=== PATIENT | male | born 1950 | race Two or more races ===

== ENCOUNTER 2019-12-05 11:57 | Emergency (ER) | payer MEDICARE, OTHER, SELFPAY ==
[2019-12-05 12:05] VITALS: BP 193/80; PULSE 99; RESP 16; TEMP 36.7; BMI 27.1
--- NOTE | 2019-12-05 12:30 | CT_ITS ---
EXAMINATION: CT ABDOMEN AND PELVIS WITHOUT CONTRAST CLINICAL INFORMATION: 69-year-old male with urinary retention COMPARISON: CT of the abdomen and pelvis 02/05/2019 TECHNIQUE: Multidetector volumetric imaging was performed from the superior aspect of the liver through the pubic symphysis. Sagittal and coronal reformatted images were obtained on the technologist's workstation. This CT examination was performed using dose optimization techniques as appropriate, variously including the following: *Automated exposure control *Adjustment of mA and/or kV according to patient size (this includes techniques or standardized protocols for targeted exams where dose is matched to indication/reason for exam; i.e. extremities or head) *Use of iterative reconstruction technique DLP: 517 mGy-cm FINDINGS: LUNG BASES: The visualized lung bases are unremarkable. LIVER, GALLBLADDER, AND BILIARY TREE: The liver is normal in size, shape, and attenuation. No focal hepatic lesion or biliary ductal dilatation is present. The gallbladder is unremarkable with no evidence of radiopaque gallstones, gallbladder wall thickening, or obvious pericholecystic inflammatory changes. PANCREAS: Unremarkable. SPLEEN: Unremarkable. ADRENAL GLANDS: Unremarkable. KIDNEYS AND URETERS: The kidneys are normal in size, shape, and attenuation. No hydronephrosis, hydroureter, or calculi seen. No perinephric stranding. BLADDER: Again demonstrated is a Bourgeois catheter within an empty bladder. GASTROINTESTINAL TRACT: No bowel wall thickening or dilatation. Again demonstrated is diffuse colonic diverticulosis without evidence of diverticulitis. Normal appendix. ABDOMINAL WALL: Again demonstrated is a small fat-containing umbilical hernia LYMPH NODES: Normal. VASCULAR: There are moderate atheromatous calcifications of the abdominal aorta and iliac arteries. The aorta is normal in caliber. Normal noncontrast appearance of the inferior vena cava. PELVIC VISCERA: Again demonstrated is a markedly enlarged prostate gland with central calcification. No pelvic lymph nodes are visualized. No free fluid. OSSEOUS STRUCTURES: No suspicious osseous lesions. No acute fracture or dislocation. Grade 1 anterolisthesis of L5 on S1. Mild degenerative changes at L5-S1 and L4-L5. IMPRESSION: Again demonstrated is significant prostate gland enlargement. A Bourgeois catheter is in place within an empty bladder. Bilateral kidneys demonstrate a normal noncontrast appearance. No hydronephrosis or hydroureter. No renal calculi. Diffuse colonic diverticulosis without evidence for diverticulitis.
--- NOTE | 2019-12-05 12:31 | ED_ITS ---
HPI - Male Genitourinary General Chief complaint: Urogenital-Male Stated complaint: diff urinating Time Seen by Provider: 12/05/19 12:22 Source: patient Mode of arrival: ambulatory Limitations: no limitations History of Present Illness HPI Narrative: 69yoM c PMHx of enlarged prostate, HTN and DM being followed by Dr. Paniagua presenting to the ED with complaints of urinary retention since this morning. Reports he last followed up with urology [address] Paniagua wanted to do a cystoscopy although patient decided to wait a little longer. Related Data Previous Rx's Medication Instructions Recorded valsartan 80 mg tablet 80 mg PO DAILY #90 tab 12/04/19 Allergies Allergy/AdvReac Type Severity Reaction Status Date / Time metformin [METFORMIN] AdvReac Mild STOMACH Unverified 11/05/19 14:51 UPSET MetFORMIN HCl ER AdvReac Unknown abdominal Uncoded 09/14/19 00:00 pain, diarrhea Review of Systems Review of Systems: Constitutional : No Weight loss, No Fever, No Chills, No Night Sweats, No Fatigue, No Malaise ENT/Mouth: No ear pain, No sore throat, No Difficulty swallowing Cardiovascular : No Chest Pain, No SOB, No Dyspnea on Exertion, No Orthopnea, No Edema, No Palpitations Respiratory : No Cough, No Sputum, No Wheezing, No Dyspnea Gastrointestinal : No Nausea, No Vomiting, No Diarrhea, No abdominal Pain, No Hematochezia, No Melena Genitourinary : No irregular bleeding, No Dysuria, No Urinary Frequency, No Hematuria, No Urinary Incontinence, No Urgency, No Flank Pain Musculoskeletal : No joint pain, No Myalgias, No Joint Swelling Skin : No Skin Lesions, No rash Neuro : No Weakness, No Numbness, No Paresthesias, No Loss of Consciousness, No Dizziness, No Headache Psych : No Social Issues, Heme/Lymph: No Bruising, No Bleeding,No Lymphadenopathy Endocrine : No Polyuria, No Polydipsia, No Temperature Intolerance Yes all other systems are reviewed and are negative COUNT INCLUDES THE [facility] Past Medical History Attestation statement: The following information was validated with the patient. Medical History Diabetes mellitus, type 2 Hypertension Social History Social History Alcohol intake: never Smoked in Last 30 Days: No Use of substances other than those prescribed or required for medical reasons: No Advance Directives: No Advance Directives Information Provided: Yes Physical Exam Vital Signs: Vital Signs: Vital Signs Temp Pulse Resp BP 12/05/19 12:05 98.1 F 99 16 193/80 H Body Mass Index 27.1 Vital signs have been reviewed as normal and appeared to be correct. Blood pressure normal. Heart rate normal. Respiration rate normal. Temperature normal. Oxygen saturation normal. Appearance: Alert. Oriented X3. No acute distress. Head: Normal external exam. Normocephalic. Atraumatic. No Salazar signs noted. No raccoon eyes noted Eyes: PERRLA. EOMI. Conjunctiva and sclera normal. Eyelids normal. ENT: EAC normal. TM's Normal. Pharynx normal. Uvula midline. Moist mucous membranes. No trismus noted. No drooling noted. No muffled voice noted. Neck: Normal inspection. Neck supple. FROM. No adenopathy. Thyroid Normal. No meningeal signs. No neck mass noted. CVS: Normal heart rate and rhythm. Heart sound normal. No murmurs noted. Pulses normal throughout. Respiratory: No respiratory distress. Painless inspiration. Breath sounds normal. No wheezes/rales/rhonchi noted. Chest nontender. No accessory muscle usage noted or decreased air movement noted. Abdomen: Soft and nontender. Bowel sounds normal in all 4 quadrants. No distention noted. No organomegaly noted. No visible injury noted. : [employer] Head present Sadia PCT in room. Normal external exam of penis, meatus, scrotum and testes. No edema or erythema noted. No penile discharge noted. No mass noted. No tenderness to palpation of penis scrotum or testes. No inguinal lymphadenopathy noted. No rashes/ lesion/ vesicle/ pustules /ulcerations / nodules or papules noted. Back: No CVA tenderness. Full range of motion noted. Skin: Skin warm and dry. Normal skin color. Normal skin turgor. No rashes/lesions/lacerations noted. Extremities: No lower extremity edema. Extremities exhibit normal range of motion. Extremities nontender. Neuro: Oriented X 3. No motor deficit. No sensory deficit. Reflexes normal. Course Course Course Narrative: 69yoM c PMHx of enlarged prostate, HTN and DM being followed by Dr. Paniagua presenting to the ED with complaints of urinary retention since this morning. Reports he last followed up with urology [address] Paniagua wanted to do a cystoscopy although patient decided to wait a little longer. - Plan: Bladder scan and place a up Catheter in. Obtain Labs, CT scan of abd/pelvis without contrast to Evaluate for mass or any other acute processes and UA and re-evaluate. Reevaluation(s) Reevaluation #2: All labs within normal limits. UA within normal limits no evidence of UTI. Awaiting CT scan of abdomen and pelvis. If negative will DC home with Up catheter in place and instructions to follow-up with urology Dr. Paniagua. Patient understands agrees with this plan. MDM - Male Genitourinary Differential Diagnosis Differential diagnosis: Likely urinary tract infection, prostatitis and acute retention of urine Medical Records Attestation: I reviewed the patient's medical records. Lab Data Attestation: I reviewed the patient's lab results. Result diagrams: 12/05/19 12:43 12/05/19 12:44 Labs: Lab Results 12/05/19 12/05/19 12/05/19 Range/Units 12:39 12:43 12:43 WBC 6.2 (4.8-10.8) X10*3/uL RBC 4.79 (4.60-5.80) X10*6/uL Hgb 13.1 L (14.0-18.0) g/dl Hct 41.1 L (42-52) % MCV 85.8 (80-98) fL MCH 27.3 (27.0-33.0) pg MCHC 31.9 (31.0-36.0) g/dl RDW 13.3 (11.0-16.0) % Plt Count 179 (160-400) X10*3/uL MPV 10.5 (9.4-12.4) fL Immature Gran % (Auto) 0.2 (0.0-0.4) % Neut % (Auto) 69.5 (45-73) % Lymph % (Auto) 22.6 (20-40) % [place] % (Auto) 6.4 (2-11) % Eos % (Auto) 0.5 (0-4) % Baso % (Auto) 0.8 (0-2) % Lymph # (Auto) 1.4 (1.2-4.9) X10*3/uL [place] # (Auto) 0.4 (0.1-1.2) X10*3/uL Eos # (Auto) 0.0 (0.0-0.4) X10*3/uL Baso # (Auto) 0.1 (0.0-0.2) X10*3/uL Abs Immat Gran (auto) 0.01 (0.00-0.03) X10*3/uL Absolute Neuts (auto) 4.3 (2.0-8.3) X10*3/uL Absolute Nucleated RBC 0.000 (0.0-0.012) X10*3/uL Nucleated RBC % (auto) 0.0 (0.0-0.2) /100WBC PT (10.8-13.0) SEC INR (0.9-1.1) Sodium (135-145) mmol/L Potassium (3.3-5.1) mmol/l Chloride (96-108) mmol/L Carbon Dioxide (22-29) mmol/L Anion Gap (12-20) BUN (9-16) mg/dL Creatinine (0.5-1.4) mg/dL Estim Creat Clear Calc Estimated GFR Random Glucose (60-115) mg/dL Calcium (8.4-10.2) mg/dL Magnesium 2.4 (1.6-2.6) mg/dL Total Bilirubin (0.0-1.0) mg/dL Direct Bilirubin (0.0-0.5) mg/dL AST (5-37) U/L ALT (0-40) U/L Alkaline Phosphatase (39-117) U/L Total Protein (6.5-8.0) g/dL Albumin (3.5-5.0) g/dL Urine Color YELLOW Urine Appearance CLEAR Urine pH 6.5 (5.0-8.0) Ur Specific [place] 1.010 (1.005-1.025) Urine Protein NEG (NEG-TRACE) MG/DL Urine Glucose (UA) NEG (NEG) MG/DL Urine Ketones NEG (NEG) MG/DL Urine Blood NEG (NEG) Urine Nitrite NEG (NEG) Ur Leukocyte Esterase NEG (NEG) 12/05/19 12/05/19 Range/Units 12:43 12:44 WBC (4.8-10.8) X10*3/uL RBC (4.60-5.80) X10*6/uL Hgb (14.0-18.0) g/dl Hct (42-52) % MCV (80-98) fL MCH (27.0-33.0) pg MCHC (31.0-36.0) g/dl RDW (11.0-16.0) % Plt Count (160-400) X10*3/uL MPV (9.4-12.4) fL Immature Gran % (Auto) (0.0-0.4) % Neut % (Auto) (45-73) % Lymph % (Auto) (20-40) % [place] % (Auto) (2-11) % Eos % (Auto) (0-4) % Baso % (Auto) (0-2) % Lymph # (Auto) (1.2-4.9) X10*3/uL [place] # (Auto) (0.1-1.2) X10*3/uL Eos # (Auto) (0.0-0.4) X10*3/uL Baso # (Auto) (0.0-0.2) X10*3/uL Abs Immat Gran (auto) (0.00-0.03) X10*3/uL Absolute Neuts (auto) (2.0-8.3) X10*3/uL Absolute Nucleated RBC (0.0-0.012) X10*3/uL Nucleated RBC % (auto) (0.0-0.2) /100WBC PT 10.9 (10.8-13.0) SEC INR 0.9 (0.9-1.1) Sodium 141 (135-145) mmol/L Potassium 4.6 (3.3-5.1) mmol/l Chloride 106 (96-108) mmol/L Carbon Dioxide 27 (22-29) mmol/L Anion Gap 13 (12-20) BUN 17 H (9-16) mg/dL Creatinine 1.14 (0.5-1.4) mg/dL Estim Creat Clear Calc 59.1 Estimated GFR > 60 Random Glucose 119 H (60-115) mg/dL Calcium 9.3 (8.4-10.2) mg/dL Magnesium (1.6-2.6) mg/dL Total Bilirubin 0.9 (0.0-1.0) mg/dL Direct Bilirubin 0.3 (0.0-0.5) mg/dL AST 13 (5-37) U/L ALT 12 (0-40) U/L Alkaline Phosphatase 62 (39-117) U/L Total Protein 7.0 (6.5-8.0) g/dL Albumin 4.3 (3.5-5.0) g/dL Urine Color Urine Appearance Urine pH (5.0-8.0) Ur Specific [place] (1.005-1.025) Urine Protein (NEG-TRACE) MG/DL Urine Glucose (UA) (NEG) MG/DL Urine Ketones (NEG) MG/DL Urine Blood (NEG) Urine Nitrite (NEG) Ur Leukocyte Esterase (NEG) Imaging Data ct scan abd/pelvis: Attestation: I personally reviewed and interpreted this imaging study as follows: Radiologist's impression: IMPRESSION: Again demonstrated is significant prostate gland enlargement. A Up catheter is in place within an empty bladder. Bilateral kidneys demonstrate a normal noncontrast appearance. No hydronephrosis or hydroureter. No renal calculi. Diffuse colonic diverticulosis without evidence for diverticulitis. Discharge Plan Discharge Clinical Impression: Enlarged prostate, Acute urinary retention, Up catheter in place Patient Disposition: Home, Self-Care Instructions: Up Catheter Placement and Care (ED) Prescriptions: No Action valsartan 80 mg tablet 80 mg PO DAILY Qty: 90 RF: 5 Referrals: Carlitos Paniagua III, MD [Physician] - 2 days Print Language: Romanian
[2019-12-05 12:51] LABS: Basophils Absolute Auto 0.1 X10*3/uL (0.0-0.2); Basophils Percent Auto 0.8 % (0-2); Eosinophils Percent Auto 0.5 % (0-4); Hematocrit 41.1 % (42-52); Hemoglobin 13.1 g/dl (14.0-18.0); Imm Gran Abs Auto 0.01 X10*3/uL (0.00-0.03); Imm Gran Pct Auto 0.2 % (0.0-0.4); Lymphocytes Absolute Auto 1.4 X10*3/uL (1.2-4.9); Lymphocytes Percent Auto 22.6 % (20-40); MANUAL DIFF FLAG NO; Mean Corpuscular HGB Conc 31.9 g/dl (31.0-36.0); Mean Corpuscular Hemoglobin 27.3 pg (27.0-33.0); Mean Corpuscular Volume 85.8 fL (80-98); Mean Platelet Volume 10.5 fL (9.4-12.4); Monocytes Absolute Auto 0.4 X10*3/uL (0.1-1.2); Monocytes Percent Auto 6.4 % (2-11); Neutrophils Absolute Auto 4.3 X10*3/uL (2.0-8.3); Neutrophils Percent Auto 69.5 % (45-73); Platelet Count 179 X10*3/uL (160-400); Red Blood Count 4.79 X10*6/uL (4.60-5.80); Red Cell Distribution Width 13.3 % (11.0-16.0); White Blood Count 6.2 X10*3/uL (4.8-10.8)
[2019-12-05 12:52] LABS: Color Urine YELLOW; Glucose Urine UA NEG (NEG); Leukocyte Esterase Urine NEG (NEG); Nitrite Urine NEG (NEG); PH 6.5 (5.0-8.0); Urine Blood NEG (NEG); Urine Ketones NEG (NEG); Urine Protein NEG (NEG-TRACE)
[2019-12-05 12:53] LABS: Appearance Urine CLEAR
[2019-12-05 12:57] LABS: INTERNATIONAL NORM RATIO 0.9 (0.9-1.1); Prothrombin Time 10.9 SEC (10.8-13.0)
[2019-12-05 13:17] LABS: Magnesium 2.4 mg/dL (1.6-2.6)
[2019-12-05 13:18] LABS: Alanine Aminotransferase 12 U/L (0-40); Albumin Level 4.3 g/dL (3.5-5.0); Alkaline Phosphatase 62 U/L (39-117); Anion Gap 13 (12-20); Aspartate Amino Transferase 13 U/L (5-37); Bilirubin Direct 0.3 mg/dL (0.0-0.5); Bilirubin Total 0.9 mg/dL (0.0-1.0); Blood Urea Nitrogen 17 mg/dL (9-16); Calcium 9.3 mg/dL (8.4-10.2); Carbon Dioxide 27 mmol/L (22-29); Chloride 106 mmol/L (96-108); Creatinine Clr Calc Pharmacy 59.1; Estimated Glomerular Filt Rate > 60; Glucose Random 119 mg/dL (60-115); Potassium 4.6 mmol/l (3.3-5.1); Sodium 141 mmol/L (135-145)
--- NOTE | 2019-12-05 14:49 | PC.NURSE ---
PT TO CT AT THIS TIME
== END 2019-12-05 16:10 | disposition home or self-care (01) ==
PROVIDERS: Physician Assistant Medical; Emergency Provider Emergency Medicine; PCP Internal Medicine
DX: N40.0 Benign prostatic hyperplasia without lower urinary tract symptoms (principal); R33.9 Retention of urine, unspecified; E11.9 Type 2 diabetes mellitus without complications; I10 Essential (primary) hypertension
CPT/HCPCS: 51702; 36415; 74176; 80048; 80076; 81003; 83735; 85025; 85610; 99284

== ENCOUNTER 2019-12-07 09:18 | Emergency (ER) | payer MEDICARE, OTHER, SELFPAY ==
[2019-12-07 09:27] VITALS: BP 183/80; PULSE 94; RESP 15; TEMP 36.6; O2SAT 99; BMI 26.1
--- NOTE | 2019-12-07 09:44 | ED_ITS ---
HPI - Male Genitourinary General Chief complaint: Urogenital-Male Stated complaint: up catheter removal Time Seen by Provider: 12/07/19 09:37 Source: patient Mode of arrival: ambulatory Limitations: no limitations History of Present Illness HPI Narrative: 69 y/o male with history of BPH with recent Up catheter placement here on 12/05/2019, HTN and DM presenting today with wanting to get Up removed. He was supposed to follow up with Dr. Merritt today in the office however when he called he was told that he was sick. He denies pain or discomfort. He would like the catheter removed. He is confident he will be able to urinate. He has had catheters in the past. MD Complaint: other (Up catheter removal ) Duration: constant Related Data Previous Rx's Medication Instructions Recorded valsartan 80 mg tablet 80 mg PO DAILY #90 tab 12/04/19 tamsulosin [Flomax] 0.4 mg PO DAILY #15 cap 12/07/19 Allergies Allergy/AdvReac Type Severity Reaction Status Date / Time metformin [METFORMIN] AdvReac Mild STOMACH Verified 12/07/19 09:32 UPSET MetFORMIN HCl ER AdvReac Unknown abdominal Uncoded 09/14/19 00:00 pain, diarrhea Review of Systems Review of Systems: Constitutional: No Fever, No Chills ENT/Mouth: No sore throat, No Rhinorrhea, No Swallowing Difficulty Eyes: No Eye Pain, No Swelling, No Redness Cardiovascular: No Chest Pain, No SOB, No Orthopnea, No Edema Respiratory: No Cough, No Sputum, No Wheezing, No dyspnea Gastrointestinal: No Nausea, No Vomiting, No Diarrhea, No abdominal Pain, No Hematochezia, No Melena Genitourinary: No Dysuria, No Urinary Frequency, No Hematuria Musculoskeletal: No joint pain, No Myalgias Skin: No Skin Lesions, No rash Neuro: No Weakness, No Numbness, No Dizziness, No Headache Heme/Lymph: No Bruising, No Lymphadenopathy All other 10 point review of systems was negative. [facility] Past Medical History Medical History Diabetes mellitus, type 2 Hypertension Social History Social History Alcohol intake: never Advance Directives: No Advance Directives Information Provided: No Physical Exam Vital Signs: Vital Signs: Vital Signs Temp Pulse Resp BP Pulse Ox 12/07/19 09:27 98 F 94 15 183/80 H 99 Body Mass Index 26.1 Appearance: Alert. Oriented X3. No acute distress. Eyes: Pupils equal, round and reactive to light. ENT: Pharynx normal. Neck: Normal inspection. CVS: Normal heart rate and rhythm. Pulses normal. Respiratory: No respiratory distress. Breath sounds normal. Abdomen: Soft and nontender. +BS x4 : normal external exam. Up in place without ulcerations or lesions, no hematuria in urine collection bag, no urine draining around Up. Skin: Skin warm and dry. Normal skin color. Normal skin turgor. No rashes. Extremities: No lower extremity edema. Neuro: Oriented X 3. No motor deficit. No sensory deficit. Course Course Course Narrative: Will remove Up upon patient's request. He was advised to return to the ER if unable to void in 6 hours. will start on Flomax. He is due to follow up with Urology and for cystoscopy to be performed. Agrees to follow up this week. Stable for d/c. Discharge Plan Discharge Clinical Impression: Benign localized hyperplasia of prostate with urinary retention, Encounter for Up catheter removal Patient Disposition: Home, Self-Care Instructions: Urinary Retention in Men (ED), Enlarged Prostate (BPH) (ED) Additional Instructions: Your Up catheter was removed today. A prescription for Flomax was sent to your pharmacy to help with urinary retention and enlarged prostate. If you are unable to void by 4pm today, come back to the ER. Follow up with your Urologist this week. Prescriptions: New tamsulosin [Flomax] 0.4 mg capsule 0.4 mg PO DAILY Qty: 15 RF: 0 No Action valsartan 80 mg tablet 80 mg PO DAILY Qty: 90 RF: 5 Referrals: Henrik Ramsey MD [Physician] - 2 days Print Language: Luxembourgish
== END 2019-12-07 10:24 | disposition home or self-care (01) ==
PROVIDERS: Emergency Provider Emergency Medicine; PCP Internal Medicine
DX: N40.0 Benign prostatic hyperplasia without lower urinary tract symptoms (principal); Z79.899 Other long term (current) drug therapy
CPT/HCPCS: 99283

== ENCOUNTER 2019-12-08 11:40 | Outpatient (REF) | payer MEDICARE, OTHER, SELFPAY ==
[2019-12-08 12:34] LABS: MANUAL DIFF FLAG NO
[2019-12-08 12:41] LABS: Basophils Absolute Auto 0.1 X10*3/uL (0.0-0.2); Basophils Percent Auto 0.8 % (0-2); Eosinophils Absolute Auto 0.1 X10*3/uL (0.0-0.4); Eosinophils Percent Auto 1.1 % (0-4); Hematocrit 41.7 % (42-52); Hemoglobin 13.2 g/dl (14.0-18.0); Imm Gran Abs Auto 0.01 X10*3/uL (0.00-0.03); Imm Gran Pct Auto 0.1 % (0.0-0.4); Lymphocytes Absolute Auto 2.8 X10*3/uL (1.2-4.9); Lymphocytes Percent Auto 39.2 % (20-40); Mean Corpuscular HGB Conc 31.7 g/dl (31.0-36.0); Mean Corpuscular Hemoglobin 27.1 pg (27.0-33.0); Mean Corpuscular Volume 85.6 fL (80-98); Mean Platelet Volume 10.8 fL (9.4-12.4); Monocytes Absolute Auto 0.6 X10*3/uL (0.1-1.2); Monocytes Percent Auto 8.6 % (2-11); Neutrophils Absolute Auto 3.6 X10*3/uL (2.0-8.3); Neutrophils Percent Auto 50.2 % (45-73); Platelet Count 189 X10*3/uL (160-400); Red Blood Count 4.87 X10*6/uL (4.60-5.80); Red Cell Distribution Width 13.6 % (11.0-16.0); White Blood Count 7.2 X10*3/uL (4.8-10.8)
[2019-12-08 12:47] LABS: Glucose Urine UA NEG (NEG); Leukocyte Esterase Urine NEG (NEG); Nitrite Urine NEG (NEG); PH 5.5 (5.0-8.0); Specific Gravity - Urine >= 1.030 (1.005-1.025); Urine Blood 2+ (NEG); Urine Ketones NEG (NEG); Urine Protein NEG (NEG-TRACE)
[2019-12-08 12:52] LABS: Appearance Urine CLEAR; Color Urine YELLOW
[2019-12-08 13:07] LABS: WBC Urine 0-2 /HPF (0-4)
[2019-12-08 13:14] LABS: Alanine Aminotransferase 14 U/L (0-40); Albumin Level 4.5 g/dL (3.5-5.0); Alkaline Phosphatase 67 U/L (39-117); Anion Gap 13 (12-20); Aspartate Amino Transferase 16 U/L (5-37); Bilirubin Total 1.1 mg/dL (0.0-1.0); Blood Urea Nitrogen 20 mg/dL (9-16); Calcium 9.7 mg/dL (8.4-10.2); Carbon Dioxide 26 mmol/L (22-29); Chloride 104 mmol/L (96-108); Cholesterol 164 mg/dL; Estimated Glomerular Filt Rate 59; Glucose Fasting 80 mg/dL (60-99); HDL Cholesterol 57 mg/dL; LDL Cholesterol Calculated 93 mg/dl; Potassium 4.7 mmol/l (3.3-5.1); Sodium 138 mmol/L (135-145); Total Protein 7.4 g/dL (6.5-8.0); Triglycerides 70 mg/dL
[2019-12-08 13:35] LABS: TSH reflex Free T4 0.47 mIU/mL (0.32-4.0)
[2019-12-08 14:24] LABS: Creatinine Urine 180.85 mg/dL
== END 2019-12-08 11:41 | disposition home or self-care (01) ==
LOC: HO.LAB 11:40
PROVIDERS: Visit Provider Internal Medicine
DX: I12.9 Hypertensive chronic kidney disease with stage 1 through stage 4 chronic kidney disease, or unspecified chronic kidney disease (principal); E11.22 Type 2 diabetes mellitus with diabetic chronic kidney disease; N18.2 Chronic kidney disease, stage 2 (mild); E78.00 Pure hypercholesterolemia, unspecified; E66.3 Overweight
CPT/HCPCS: 36415; 80053; 80061; 81001; 82043; 84443; 85025; 87086

== ENCOUNTER 2020-01-01 15:14 | Outpatient (REF) | payer MEDICARE, OTHER, SELFPAY | END 2020-01-01 15:15 | disposition home or self-care (01) | LOC: HO.LAB 15:14 | PROVIDERS: PCP Internal Medicine; Visit Provider Internal Medicine | DX: Z20.828 Contact with and (suspected) exposure to other viral communicable diseases (principal) | CPT/HCPCS: C9803; U0003 ==

== ENCOUNTER 2020-02-17 12:18 | Outpatient (REF) | payer MEDICARE, OTHER, SELFPAY | END 2020-02-17 12:19 | disposition home or self-care (01) | LOC: HO.LAB 12:18 | PROVIDERS: PCP Internal Medicine; Visit Provider Internal Medicine | DX: Z20.828 Contact with and (suspected) exposure to other viral communicable diseases (principal) | CPT/HCPCS: C9803; U0003 ==

== ENCOUNTER → 2020-02-25 13:32 | Outpatient (BNVA) | payer MEDICARE, OTHER, SELFPAY | PROVIDERS: PCP Internal Medicine; Visit Provider Physician Assistant | DX: Z13.89 Encounter for screening for other disorder (principal) | CPT/HCPCS: Q3014 ==

== ENCOUNTER → 2020-03-04 13:50 | Outpatient (BNVA) | payer MEDICARE, MEDICAID, OTHER, SELFPAY | PROVIDERS: PCP Internal Medicine; Visit Provider Urology | DX: N40.1 Benign prostatic hyperplasia with lower urinary tract symptoms (principal); Z79.899 Other long term (current) drug therapy; Z87.891 Personal history of nicotine dependence | CPT/HCPCS: 52000; 81002; 99212 ==

== ENCOUNTER 2020-03-08 09:14 | Outpatient (REF) | payer MEDICARE, MEDICAID, OTHER, SELFPAY ==
[2020-03-08 09:33] LABS: MANUAL DIFF FLAG NO
[2020-03-08 09:38] LABS: Basophils Absolute Auto 0.1 X10*3/uL (0.0-0.2); Basophils Percent Auto 1.2 % (0-2); Eosinophils Absolute Auto 0.1 X10*3/uL (0.0-0.4); Eosinophils Percent Auto 1.4 % (0-4); Hematocrit 42.5 % (42-52); Hemoglobin 13.5 g/dl (14.0-18.0); Imm Gran Abs Auto 0.01 X10*3/uL (0.00-0.03); Imm Gran Pct Auto 0.1 % (0.0-0.4); Lymphocytes Absolute Auto 3.4 X10*3/uL (1.2-4.9); Lymphocytes Percent Auto 46.5 % (20-40); Mean Corpuscular HGB Conc 31.8 g/dl (31.0-36.0); Mean Corpuscular Hemoglobin 26.8 pg (27.0-33.0); Mean Corpuscular Volume 84.3 fL (80-98); Mean Platelet Volume 10.6 fL (9.4-12.4); Monocytes Absolute Auto 0.5 X10*3/uL (0.1-1.2); Monocytes Percent Auto 6.8 % (2-11); Neutrophils Absolute Auto 3.3 X10*3/uL (2.0-8.3); Platelet Count 200 X10*3/uL (160-400); Red Blood Count 5.04 X10*6/uL (4.60-5.80); Red Cell Distribution Width 13.7 % (11.0-16.0); White Blood Count 7.4 X10*3/uL (4.8-10.8)
[2020-03-08 10:06] LABS: Alanine Aminotransferase 12 U/L (0-40); Albumin Level 4.5 g/dL (3.5-5.0); Alkaline Phosphatase 64 U/L (39-117); Anion Gap 12 (12-20); Aspartate Amino Transferase 17 U/L (5-37); Bilirubin Total 0.7 mg/dL (0.0-1.0); Blood Urea Nitrogen 17 mg/dL (9-16); Calcium 9.3 mg/dL (8.4-10.2); Carbon Dioxide 28 mmol/L (22-29); Chloride 104 mmol/L (96-108); Cholesterol 156 mg/dL; Estimated Glomerular Filt Rate 59; Glucose Fasting 96 mg/dL (60-99); HDL Cholesterol 58 mg/dL; LDL Cholesterol Calculated 82 mg/dl; Potassium 4.4 mmol/l (3.3-5.1); Sodium 140 mmol/L (135-145); Total Protein 7.4 g/dL (6.5-8.0); Triglycerides 83 mg/dL
[2020-03-08 10:34] LABS: TSH reflex Free T4 0.81 mIU/mL (0.32-4.0)
[2020-03-08 10:43] LABS: Glucose Urine UA NEG (NEG); Leukocyte Esterase Urine NEG (NEG); Nitrite Urine NEG (NEG); PH 5.5 (5.0-8.0); Specific Gravity - Urine >= 1.030 (1.005-1.025); Urine Blood TRACE (NEG); Urine Ketones NEG (NEG); Urine Protein NEG (NEG-TRACE)
[2020-03-08 10:47] LABS: Appearance Urine CLEAR; Color Urine YELLOW
[2020-03-08 10:53] LABS: Creatinine Urine 201.81 mg/dL; Microalbum/Creatinine Ratio Ur 4.4 ug/mg cr
[2020-03-08 11:07] LABS: RBC Urine 0-2 /HPF (0); WBC Urine 0 /HPF (0-4)
[2020-03-08 11:07] LABS: Prostate Specific Antigen 5.98 ng/mL (<0.05-4.0)
== END 2020-03-08 09:15 | disposition home or self-care (01) ==
LOC: HO.LAB 09:14
PROVIDERS: PCP Internal Medicine; Visit Provider Internal Medicine
DX: E11.22 Type 2 diabetes mellitus with diabetic chronic kidney disease (principal); I12.9 Hypertensive chronic kidney disease with stage 1 through stage 4 chronic kidney disease, or unspecified chronic kidney disease; N18.2 Chronic kidney disease, stage 2 (mild); N40.1 Benign prostatic hyperplasia with lower urinary tract symptoms; E78.00 Pure hypercholesterolemia, unspecified; E66.3 Overweight
CPT/HCPCS: 36415; 80053; 80061; 81001; 82043; 84153; 84443; 85025

== ENCOUNTER 2020-05-20 13:09 | Emergency (ER) | payer MEDICARE, MEDICAID, SELFPAY ==
[2020-05-20 13:20] VITALS: BP 196/91; PULSE 82; RESP 18; TEMP 36.6; O2SAT 100; BMI 26.1
--- NOTE | 2020-05-20 14:32 | ED.MALEGU ---
HPI - Male Genitourinary General Chief complaint: Urogenital-Male Stated complaint: unable to urinate Time Seen by Provider: 05/20/20 14:00 History of Present Illness HPI Narrative: This is a 70 years old male presented to the emergency department because the inability to urinate since 09:00 o'clock this morning. Denies any fever chills abdominal pain a Bourgeois catheter was inserted in the emergency department we more than 800 cc of urine obtained he. He is followed by urology he has an appointment in few days with the urologist Severity: moderate Relieving factors: none Related Data Home Medications Medication Instructions Recorded Confirmed atorvastatin 20 mg tablet 20 mg PO DAILY 12/18/19 03/23/20 linagliptin 5 mg tablet 5 mg PO DAILY 12/18/19 03/23/20 methylcellulose (with sugar) oral 1 tbsp PO DAILY 02/25/20 03/23/20 powder polyethylene glycol 3350 17 17 g PO DAILY 02/25/20 03/23/20 gram/dose oral powder Previous Rx's Medication Instructions Recorded valsartan 80 mg tablet 80 mg PO DAILY #90 tab 12/04/19 docusate sodium 100 mg capsule 200 mg PO BEDTIME #60 cap 02/26/20 glipizide 2.5 mg tablet, extended 2.5 mg PO DAILY 30 Days #30 tab 04/21/20 release 24 hr tamsulosin 0.4 mg capsule 0.4 mg PO DAILY #90 cap 05/12/20 Allergies Allergy/AdvReac Type Severity Reaction Status Date / Time metformin [METFORMIN] AdvReac Mild STOMACH Verified 03/23/20 11:26 UPSET,DIARRHEA Review of Systems Review of Systems: Yes all other systems are reviewed and are negative Cardiovascular: Cardiovascular: Denies chest pain, Denies chest pain at rest, Denies chest pain with activity, Denies Epigastric Pain, Denies dyspnea and Denies dyspnea on exertion Respiratory: Respiratory: Denies dyspnea and Denies dyspnea on exertion Gastrointestinal: Gastrointestinal: Reports no additional gastrointestinal complaints, Denies abdominal pain, Denies belching, Denies melena and Denies bloating Musculoskeletal: Musculoskeletal: Reports no additional musculoskeletal complaints Neurologic: Reports system reviewed and no additional complaints, except as documented Psychiatric: Psychiatric: Reports no additional psychiatric complaints PMFSH Past Medical History Medical History Benign essential hypertension Benign prostatic hyperplasia with lower urinary tract symptoms BPH associated with nocturia Chronic constipation Chronic kidney disease (CKD), stage II (mild) Overweight (BMI 25.0-29.9) Pure hypercholesterolemia Type 2 diabetes mellitus with diabetic chronic kidney disease Surgical History History of hemorrhoidectomy History of inguinal hernia repair Family History Family History Father No problems noted. Mother Medical history unknown Social History Social History Household Members: Spouse Alcohol intake: never Smoking Status: Former smoker Tobacco Type: Cigarette Advance Directives: No Advance Directives Information Provided: No Physical Exam Vital Signs: Vital Signs: Last Vital Signs Temp 97.8 F 05/20/20 13:20 Pulse 82 05/20/20 13:20 Resp 18 05/20/20 13:20 BP 196/91 H 05/20/20 13:20 Pulse Ox 100 05/20/20 13:20 Body Mass Index 26.1 Const: General: cooperative Orientation/consciousness: oriented to person, oriented to place, oriented to time and patient oriented x3 HENMT: Head: Yes normal to inspection Eyes: General: appearance normal, both eyes and all related structures Neck: Neck: Yes normal visual inspection and Yes full ROM Chest: Chest palpation & inspection: normal inspection of the chest Resp: Auscultation: clear to auscultation bilaterally Cardio: Jugular venous distension: no JVD Rate: regular rate Rhythm: regular rhythm GI: Inspection: Yes normal to inspection Percussion: Yes normal to percussion Skin: General skin exam: no rashes or lesions noted and elasticity normal Neuro: General: oriented to person, oriented to place, oriented to time and patient oriented x3 Extrem: General: Yes normal to inspection, Yes full ROM and Yes capillary refill normal Discharge Plan Discharge Prescriptions: No Action valsartan 80 mg tablet 80 mg PO DAILY Qty: 90 RF: 5 glipizide 2.5 mg tablet extended release 24hr 2.5 mg PO DAILY 30 Days Qty: 30 RF: 3 tamsulosin [Flomax] 0.4 mg capsule 0.4 mg PO DAILY Qty: 90 RF: 1 Tradjenta 5 mg tablet 5 mg PO DAILY RF: 0 atorvastatin 20 mg tablet 20 mg PO DAILY RF: 0 polyethylene glycol 3350 [Miralax] 17 gram/dose powder 17 g PO DAILY RF: 0 Citrucel (sucrose) Powder 1 tbsp PO DAILY RF: 0 docusate sodium [Colace] 100 mg capsule 200 mg PO BEDTIME Qty: 60 RF: 5
[2020-05-20 14:46] VITALS: BP 144/64; PULSE 79; RESP 16; O2SAT 99
[2020-05-20 14:47] LABS: MANUAL DIFF FLAG NO
[2020-05-20 14:48] LABS: Basophils Absolute Auto 0.1 X10*3/uL (0.0-0.2); Basophils Percent Auto 1.7 % (0-2); Eosinophils Absolute Auto 0.1 X10*3/uL (0.0-0.4); Eosinophils Percent Auto 1.7 % (0-4); Hematocrit 38.4 % (42-52); Hemoglobin 12.4 g/dl (14.0-18.0); Imm Gran Abs Auto 0.01 X10*3/uL (0.00-0.03); Imm Gran Pct Auto 0.2 % (0.0-0.4); Lymphocytes Absolute Auto 1.2 X10*3/uL (1.2-4.9); Mean Corpuscular HGB Conc 32.3 g/dl (31.0-36.0); Mean Corpuscular Hemoglobin 27.4 pg (27.0-33.0); Mean Corpuscular Volume 84.8 fL (80-98); Mean Platelet Volume 10.7 fL (9.4-12.4); Monocytes Absolute Auto 0.5 X10*3/uL (0.1-1.2); Monocytes Percent Auto 9.4 % (2-11); Platelet Count 153 X10*3/uL (160-400); Red Blood Count 4.53 X10*6/uL (4.60-5.80); Red Cell Distribution Width 14.4 % (11.0-16.0); White Blood Count 4.8 X10*3/uL (4.8-10.8)
[2020-05-20 14:52] LABS: Glucose Urine UA NEG (NEG); Leukocyte Esterase Urine NEG (NEG); Nitrite Urine NEG (NEG); PH 6.5 (5.0-8.0); Specific Gravity - Urine 1.015 (1.005-1.025); Urine Blood 2+ (NEG); Urine Ketones NEG (NEG); Urine Protein NEG (NEG-TRACE)
[2020-05-20 14:53] LABS: Appearance Urine CLEAR; Color Urine YELLOW
[2020-05-20 14:54] LABS: Prothrombin Time 11.7 SEC (10.8-13.0)
[2020-05-20 14:56] LABS: Partial Thromboplastin Time 34.2 SEC (24.1-38.0)
[2020-05-20 15:00] LABS: WBC Urine 0 /HPF (0-4)
[2020-05-20 15:14] LABS: Alanine Aminotransferase 12 U/L (0-40); Albumin Level 4.3 g/dL (3.5-5.0); Alkaline Phosphatase 69 U/L (39-117); Anion Gap 13 (12-20); Aspartate Amino Transferase 15 U/L (5-37); Bilirubin Total 0.9 mg/dL (0.0-1.0); Blood Urea Nitrogen 15 mg/dL (9-16); Calcium 8.8 mg/dL (8.4-10.2); Carbon Dioxide 26 mmol/L (22-29); Chloride 104 mmol/L (96-108); Creatinine Clr Calc Pharmacy 55.4; Estimated Glomerular Filt Rate 60; Glucose Random 106 mg/dL (60-115); Potassium 4.2 mmol/L (3.3-5.1); Sodium 139 mmol/L (135-145); Total Protein 7.1 g/dL (6.5-8.0)
[2020-05-20 16:02] VITALS: BP 148/68; PULSE 69; RESP 18; TEMP 36.8; O2SAT 99
== END 2020-05-20 17:01 | disposition home or self-care (01) ==
PROVIDERS: Nurse Practitioner Primary Care; Emergency Provider Emergency Medicine; PCP Internal Medicine
DX: R33.9 Retention of urine, unspecified (principal); I12.9 Hypertensive chronic kidney disease with stage 1 through stage 4 chronic kidney disease, or unspecified chronic kidney disease; E11.22 Type 2 diabetes mellitus with diabetic chronic kidney disease; N18.2 Chronic kidney disease, stage 2 (mild); Z79.899 Other long term (current) drug therapy; Z87.891 Personal history of nicotine dependence; Z79.84 Long term (current) use of oral hypoglycemic drugs
CPT/HCPCS: 36415; 80053; 81001; 85025; 85610; 85730; 99283; 99284

== ENCOUNTER 2020-05-23 09:22 | Emergency (ER) | payer MEDICARE, MEDICAID, SELFPAY ==
[2020-05-23 09:42] VITALS: BP 170/71; PULSE 80; RESP 18; TEMP 36.4; O2SAT 99; BMI 24.9
[2020-05-23 10:00] VITALS: BP 139/56; PULSE 74; RESP 18; TEMP 36.7; O2SAT 99
--- NOTE | 2020-05-23 11:31 | ED_ITS ---
HPI - Male Genitourinary General Chief complaint: Urogenital-Male <CINDA Whittaker - Last Filed: 05/23/20 15:31> Stated complaint: cath removal <CINDA Whittaker Last Filed: 05/23/20 15:31> Time Seen by Provider: 05/23/20 11:15 <CINDA Whittaker Last Filed: 05/23/20 15:31> Source: patient and family <CINDA Whittaker Last Filed: 05/23/20 15:31> Mode of arrival: ambulatory <CINDA Whittaker Last Filed: 05/23/20 15:31> Limitations: language barrier <CINDA Whittaker Last Filed: 05/23/20 15:31> History of Present Illness HPI Narrative: 70 y/o male with history of BPH with recurrent urinary retention, hx CKD II, HTN, DM who presents to the ED for Bourgeois catheter removal. He was seen here 05/20 for acute urinary retention and a Bourgeois catheter was placed. He reports since then he has has discomfort with the tube with occasional blood and leakage around the catheter. He reports continued urge to urinate despite adequate drainage. He denies lower abdominal pain, fever, chills, N/V/D. He went to go follow up with the Urologist today but he was told he was not there. He has a follow up appointment on 06/02 but does not want the catheter in any longer. <CINDA Whittaker Last Filed: 05/23/20 15:31> MD Complaint: other (Bourgeois discomfort ) <CINDA Whittaker Last Filed: 05/23/20 15:31> Onset (ago): day(s) (2) <CINDA Whittaker Last Filed: 05/23/20 15:31> Duration: constant <CINDA Whittaker Last Filed: 05/23/20 15:31> Location: penis <CINDA Whittaker Last Filed: 05/23/20 15:31> Severity: moderate <CINDA Whittaker Last Filed: 05/23/20 15:31> Quality: aching <CINDA Whittaker Last Filed: 05/23/20 15:31> Relieving factors: none <CINDA Whittaker Last Filed: 05/23/20 15:31> Exacerbating factors: none <CINDA Whittaker Last Filed: 05/23/20 15:31> Associated symptoms: Reports blood in urine (occasional and slight) <CINDA Whittaker Last Filed: 05/23/20 15:31> Related Data Sexually active: No <CINDA Whittaker Last Filed: 05/23/20 15:31> Home medications: Home Medications Medication Instructions Recorded Confirmed atorvastatin 20 mg tablet 20 mg PO DAILY 12/18/19 03/23/20 linagliptin 5 mg tablet 5 mg PO DAILY 12/18/19 03/23/20 methylcellulose (with sugar) oral 1 tbsp PO DAILY 02/25/20 03/23/20 powder polyethylene glycol 3350 17 17 g PO DAILY 02/25/20 03/23/20 gram/dose oral powder Previous Rx's Medication Instructions Recorded valsartan 80 mg tablet 80 mg PO DAILY #90 tab 12/04/19 docusate sodium 100 mg capsule 200 mg PO BEDTIME #60 cap 02/26/20 glipizide 2.5 mg tablet, extended 2.5 mg PO DAILY 30 Days #30 tab 04/21/20 release 24 hr tamsulosin 0.4 mg capsule 0.4 mg PO DAILY #90 cap 05/12/20 <CINDA Whittaker Last Filed: 05/23/20 15:31> Allergies/Adverse reactions: Allergies Allergy/AdvReac Type Severity Reaction Status Date / Time metformin [METFORMIN] AdvReac Mild STOMACH Verified 05/23/20 09:41 UPSET,DIARRHEA <CINDA Whittaker Last Filed: 05/23/20 15:31> Review of Systems Review of Systems: Constitutional: No Fever, No Chills Cardiovascular: No Chest Pain, No SOB Respiratory: No Cough, No Sputum Gastrointestinal: No Nausea, No Vomiting, No Diarrhea, No abdominal Pain Genitourinary: No Dysuria, No Urinary Frequency, No Hematuria, +Urinary Urgency Musculoskeletal: No joint pain, No Myalgias Skin: No Skin Lesions, No rash Neuro: No Weakness, No Numbness, No Dizziness, No Headache Heme/Lymph: No Bruising, No Lymphadenopathy Endocrine: No Polyuria, No Polydipsia <CINDA Whittaker - Last Filed: 05/23/20 15:31> [facility] Past Medical History Attestation statement: The following information was validated with the patient. <CINDA Whittaker - Last Filed: 05/23/20 15:31> Medical History: Medical History Benign essential hypertension Benign prostatic hyperplasia with lower urinary tract symptoms BPH associated with nocturia Chronic constipation Chronic kidney disease (CKD), stage II (mild) Overweight (BMI 25.0-29.9) Pure hypercholesterolemia Type 2 diabetes mellitus with diabetic chronic kidney disease <CINDA Whittaker - Last Filed: 05/23/20 15:31> Surgical History: Surgical History History of hemorrhoidectomy History of inguinal hernia repair <CINDA Whittaker - Last Filed: 05/23/20 15:31> Family History Family History: Family History Father No problems noted. Mother Medical history unknown <CINDA Whittaker - Last Filed: 05/23/20 15:31> Social History Social History: Social History Household Members: Spouse Alcohol intake: never Smoking Status: Never smoker Tobacco Type: Cigarette <CINDA Whittaker - Last Filed: 05/23/20 15:31> Physical Exam Vital Signs: Vital Signs: Last Vital Signs Temp 98.1 F 05/23/20 10:00 Pulse 74 05/23/20 10:00 Resp 18 05/23/20 10:00 BP 139/56 L 05/23/20 10:00 Pulse Ox 99 05/23/20 10:00 Body Mass Index 24.9 Appearance: Alert. Oriented X3. No acute distress. HEENT: normal external inspection Neck: Normal inspection. Neck supple. CVS: Normal heart rate and rhythm. Pulses normal. Respiratory: No respiratory distress. Breath sounds normal. Abdomen: Soft and non-tender. +BS x4 : Normal external genitalia, Bourgeois catheter in place without any appreciable drainage around the tubing, no testicular tenderness. Bourgeois bag with small amount of bloody sediment, urine is clear Skin: Skin warm and dry. Normal skin color. Normal skin turgor. No rashes. Extremities: No lower extremity edema. Neuro: Oriented X 3. Non-focal <CINDA Whittaker - Last Filed: 05/23/20 15:31> Vital Signs: Last Vital Signs Temp 98.1 F 05/23/20 10:00 Pulse 74 05/23/20 10:00 Resp 18 05/23/20 10:00 BP 139/56 L 05/23/20 10:00 Pulse Ox 99 05/23/20 10:00 Body Mass Index 24.9 <[place] MD - Last Filed: 06/07/20 07:41> Course Course Course Narrative: 70 y/o male presenting for Bourgeois catheter removal. He accepts full responsibility for wanting it out and the consequences of taking it out. He is aware that it may need to go back in if he cannot void today. He states he will return to the ER if this is the case. He was instructed to continue his Flomax and follow up with the Urologist. Encouraged to contact the office to move up his appointment. Stable for discharge. <CINDA Whittaker - Last Filed: 05/23/20 15:31> I have reviewed the chart <[place] MD - Last Filed: 06/07/20 07:41> Discharge Plan Discharge Clinical Impression: Acute retention of urine, Enlarged prostate <CINDA Whittaker - Last Filed: 05/23/20 15:31> Patient Disposition: Home, Self-Care <CINDA Whittaker - Last Filed: 05/23/20 15:31> Instructions: Urinary Retention in Men (ED), Enlarged Prostate (BPH) (ED) <CINDA Whittaker - Last Filed: 05/23/20 15:31> Additional Instructions: If you do not urinate in 6-8 hours you will need to come back to the ER for further evaluation. Take your prescribed tamsulosin for urinary retention. Follow up with Urology as scheduled. <CINDA Whittaker - Last Filed: 05/23/20 15:31> Prescriptions: No Action valsartan 80 mg tablet 80 mg PO DAILY Qty: 90 RF: 5 glipizide 2.5 mg tablet extended release 24hr 2.5 mg PO DAILY 30 Days Qty: 30 RF: 3 tamsulosin [Flomax] 0.4 mg capsule 0.4 mg PO DAILY Qty: 90 RF: 1 Tradjenta 5 mg tablet 5 mg PO DAILY RF: 0 atorvastatin 20 mg tablet 20 mg PO DAILY RF: 0 polyethylene glycol 3350 [Miralax] 17 gram/dose powder 17 g PO DAILY RF: 0 Citrucel (sucrose) Powder 1 tbsp PO DAILY RF: 0 docusate sodium [Colace] 100 mg capsule 200 mg PO BEDTIME Qty: 60 RF: 5 <CINDA Whittaker - Last Filed: 05/23/20 15:31> Interventions: ED Discharge Assessment Last Done: 05/23/20 11:56 <CINDA Whittaker - Last Filed: 05/23/20 15:31> Discharge Date/Time: 05/23/20 11:57 <CINDA Whittaker - Last Filed: 05/23/20 15:31>
== END 2020-05-23 11:57 | disposition home or self-care (01) ==
PROVIDERS: Emergency Provider Emergency Medicine; PCP Internal Medicine
DX: R33.9 Retention of urine, unspecified (principal); N40.0 Benign prostatic hyperplasia without lower urinary tract symptoms; Z79.899 Other long term (current) drug therapy
CPT/HCPCS: 99283; 99284

== ENCOUNTER 2020-06-06 12:01 | Outpatient (REF) | payer MEDICARE, MEDICAID, SELFPAY ==
[2020-06-06 12:34] LABS: MANUAL DIFF FLAG NO
[2020-06-06 12:45] LABS: Basophils Absolute Auto 0.1 X10*3/uL (0.0-0.2); Basophils Percent Auto 1.3 % (0-2); Eosinophils Absolute Auto 0.1 X10*3/uL (0.0-0.4); Eosinophils Percent Auto 1.4 % (0-4); Hematocrit 40.3 % (42-52); Hemoglobin 12.8 g/dl (14.0-18.0); Imm Gran Abs Auto 0.02 X10*3/uL (0.00-0.03); Imm Gran Pct Auto 0.3 % (0.0-0.4); Lymphocytes Absolute Auto 3.4 X10*3/uL (1.2-4.9); Lymphocytes Percent Auto 42.6 % (20-40); Mean Corpuscular HGB Conc 31.8 g/dl (31.0-36.0); Mean Corpuscular Hemoglobin 26.8 pg (27.0-33.0); Mean Corpuscular Volume 84.3 fL (80-98); Mean Platelet Volume 10.9 fL (9.4-12.4); Monocytes Absolute Auto 0.6 X10*3/uL (0.1-1.2); Monocytes Percent Auto 7.6 % (2-11); Neutrophils Absolute Auto 3.7 X10*3/uL (2.0-8.3); Neutrophils Percent Auto 46.8 % (45-73); Platelet Count 218 X10*3/uL (160-400); Red Blood Count 4.78 X10*6/uL (4.60-5.80); Red Cell Distribution Width 14.6 % (11.0-16.0); White Blood Count 7.9 X10*3/uL (4.8-10.8)
[2020-06-06 13:04] LABS: Glucose Urine UA NEG (NEG); Leukocyte Esterase Urine NEG (NEG); Nitrite Urine NEG (NEG); PH 5.5 (5.0-8.0); Specific Gravity - Urine >= 1.030 (1.005-1.025); Urine Blood NEG (NEG); Urine Ketones NEG (NEG); Urine Protein NEG (NEG-TRACE)
[2020-06-06 13:06] LABS: Appearance Urine CLEAR; Color Urine YELLOW
[2020-06-06 13:10] LABS: Alanine Aminotransferase 13 U/L (0-40); Albumin Level 4.4 g/dL (3.5-5.0); Alkaline Phosphatase 59 U/L (39-117); Anion Gap 15 (12-20); Aspartate Amino Transferase 16 U/L (5-37); Bilirubin Total 0.7 mg/dL (0.0-1.0); Blood Urea Nitrogen 16 mg/dL (9-16); Calcium 9.3 mg/dL (8.4-10.2); Carbon Dioxide 25 mmol/L (22-29); Chloride 105 mmol/L (96-108); Cholesterol 148 mg/dL; Estimated Glomerular Filt Rate > 60; Glucose Fasting 97 mg/dL (60-99); HDL Cholesterol 53 mg/dL; LDL Cholesterol Calculated 81 mg/dl; Potassium 4.7 mmol/L (3.3-5.1); Sodium 140 mmol/L (135-145); Total Protein 7.3 g/dL (6.5-8.0); Triglycerides 70 mg/dL
[2020-06-06 13:18] LABS: TSH reflex Free T4 0.37 uIU/mL (0.32-4.0)
[2020-06-06 13:26] LABS: Creatinine Urine 191.98 mg/dL; Microalbum/Creatinine Ratio Ur 3.1 ug/mg cr
== END 2020-06-06 12:02 | disposition home or self-care (01) ==
LOC: HO.LAB 12:01
PROVIDERS: PCP Internal Medicine; Visit Provider Internal Medicine
DX: E11.22 Type 2 diabetes mellitus with diabetic chronic kidney disease (principal); I12.9 Hypertensive chronic kidney disease with stage 1 through stage 4 chronic kidney disease, or unspecified chronic kidney disease; N18.2 Chronic kidney disease, stage 2 (mild); E66.3 Overweight; E78.00 Pure hypercholesterolemia, unspecified
CPT/HCPCS: 36415; 80053; 80061; 81003; 82043; 84443; 85025

== ENCOUNTER 2020-09-06 09:47 | Outpatient (REF) | payer MEDICARE, MEDICAID, SELFPAY ==
[2020-09-06 10:38] LABS: MANUAL DIFF FLAG NO
[2020-09-06 10:41] LABS: Basophils Absolute Auto 0.1 X10*3/uL (0.0-0.2); Basophils Percent Auto 1.2 % (0-2); Eosinophils Absolute Auto 0.1 X10*3/uL (0.0-0.4); Eosinophils Percent Auto 1.1 % (0-4); Hemoglobin 12.9 g/dl (14.0-18.0); Imm Gran Abs Auto 0.01 X10*3/uL (0.00-0.03); Imm Gran Pct Auto 0.2 % (0.0-0.4); Lymphocytes Percent Auto 46.5 % (20-40); Mean Corpuscular HGB Conc 31.5 g/dl (31.0-36.0); Mean Corpuscular Volume 85.8 fL (80-98); Mean Platelet Volume 10.7 fL (9.4-12.4); Monocytes Absolute Auto 0.5 X10*3/uL (0.1-1.2); Monocytes Percent Auto 7.7 % (2-11); Neutrophils Absolute Auto 2.8 X10*3/uL (2.0-8.3); Neutrophils Percent Auto 43.3 % (45-73); Platelet Count 192 X10*3/uL (160-400); Red Blood Count 4.78 X10*6/uL (4.60-5.80); Red Cell Distribution Width 14.1 % (11.0-16.0); White Blood Count 6.5 X10*3/uL (4.8-10.8)
[2020-09-06 10:47] LABS: Estimated Average Glucose 128 mg/dL; Hemoglobin A1C 150.6677 umol/L; Hemoglobin A1c % 6.1 %
[2020-09-06 10:58] LABS: Glucose Urine UA NEG (NEG); Leukocyte Esterase Urine NEG (NEG); Nitrite Urine NEG (NEG); Specific Gravity - Urine >= 1.030 (1.005-1.025); Urine Blood NEG (NEG); Urine Ketones NEG (NEG); Urine Protein NEG (NEG-TRACE)
[2020-09-06 11:01] LABS: Appearance Urine CLEAR; Color Urine YELLOW
[2020-09-06 11:03] LABS: Alanine Aminotransferase 10 U/L (0-40); Albumin Level 4.5 g/dL (3.5-5.0); Alkaline Phosphatase 60 U/L (39-117); Anion Gap 14 (12-20); Aspartate Amino Transferase 16 U/L (5-37); Bilirubin Total 0.7 mg/dL (0.0-1.0); Blood Urea Nitrogen 16 mg/dL (9-16); Carbon Dioxide 24 mmol/L (22-29); Chloride 107 mmol/L (96-108); Cholesterol 151 mg/dL; Estimated Glomerular Filt Rate 59; Glucose Fasting 101 mg/dL (60-99); HDL Cholesterol 56 mg/dL; LDL Cholesterol Calculated 83 mg/dl; Potassium 4.8 mmol/L (3.3-5.1); Sodium 140 mmol/L (135-145); Total Protein 7.5 g/dL (6.5-8.0); Triglycerides 61 mg/dL
[2020-09-06 11:18] LABS: Microalbum/Creatinine Ratio Ur 5.3 ug/mg cr
[2020-09-06 11:24] LABS: TSH reflex Free T4 0.58 uIU/mL (0.32-4.0)
== END 2020-09-06 09:48 | disposition home or self-care (01) ==
LOC: HO.LAB 09:47
PROVIDERS: PCP Internal Medicine; Visit Provider Internal Medicine
DX: E78.00 Pure hypercholesterolemia, unspecified (principal); N18.2 Chronic kidney disease, stage 2 (mild); E11.22 Type 2 diabetes mellitus with diabetic chronic kidney disease; E66.3 Overweight; I12.9 Hypertensive chronic kidney disease with stage 1 through stage 4 chronic kidney disease, or unspecified chronic kidney disease
CPT/HCPCS: 36415; 80053; 80061; 81003; 82043; 83036; 84443; 85025

== ENCOUNTER → 2020-10-27 13:59 | Outpatient (BNVA) | payer MEDICARE, MEDICAID, SELFPAY | PROVIDERS: PCP Internal Medicine; Visit Provider Urology | DX: N40.1 Benign prostatic hyperplasia with lower urinary tract symptoms (principal); R35.1 Nocturia; R33.8 Other retention of urine | CPT/HCPCS: 51798 ==

== ENCOUNTER 2020-12-19 11:08 | Outpatient (REF) | payer MEDICARE, MEDICAID, SELFPAY ==
[2020-12-19 12:59] LABS: Prostate Specific Antigen 5.58 ng/mL (<0.05-4.0)
== END 2020-12-19 11:09 | disposition home or self-care (01) ==
LOC: HO.LAB 11:08
PROVIDERS: PCP Internal Medicine; Visit Provider Nurse Practitioner Family
DX: Z12.5 Encounter for screening for malignant neoplasm of prostate (principal)
CPT/HCPCS: 36415; 84153

== ENCOUNTER 2021-02-12 06:56 | Emergency (ER) | payer MEDICARE, OTHER, SELFPAY ==
[2021-02-12 07:17] VITALS: BP 214/96; PULSE 101; RESP 16; TEMP 36.8; O2SAT 98
--- NOTE | 2021-02-12 07:35 | ED.MALEGU ---
HPI - Male Genitourinary General Chief complaint: Urogenital-Male Stated complaint: Trouble urinating Time Seen by Provider: 02/12/21 07:12 Source: patient Mode of arrival: ambulatory Limitations: no limitations History of Present Illness MD Complaint: other (urinary retention) Onset (ago): hour(s) (10pm last night) Duration: constant Location: penis Severity: moderate Quality: aching and dull Relieving factors: none Exacerbating factors: urination Context: other (hx of retention in the past - has had up catheters in the past, BPH sees Dr. Ramsey ) Associated symptoms: Reports denies other symptoms Related Data Previous Rx's Medication Instructions Recorded valsartan 80 mg tablet 80 mg PO DAILY #90 tab 12/04/19 blood sugar diagnostic (FreeStyle #100 ea 06/22/20 Lite Strips) atorvastatin 20 mg tablet 20 mg PO DAILY #90 tab 12/07/20 finasteride 5 mg tablet 5 mg PO DAILY 90 Days #90 tab 01/06/21 tamsulosin 0.4 mg capsule 0.8 mg PO DAILY 90 Days #180 cap 01/06/21 glipizide 2.5 mg tablet, extended 2.5 mg PO DAILY #90 tab 01/09/21 release 24 hr linagliptin 5 mg tablet (Tradjenta) 5 mg PO DAILY #90 tab 02/06/21 Allergies Allergy/AdvReac Type Severity Reaction Status Date / Time metformin [METFORMIN] AdvReac Mild STOMACH Verified 01/06/21 08:44 UPSET,DIARRHEA Review of Systems Review of Systems: Constitutional : No Weight loss, No Fever, No Chills, No Fatigue, No Malaise ENT/Mouth : No sore throat, No Rhinorrhea Eyes: No Eye Pain, No Swelling, No Redness Cardiovascular : No Chest Pain, No SOB, No Dyspnea on Exertion, No Orthopnea, No Edema, No Palpitations Respiratory : No Cough, No Sputum, No Wheezing Gastrointestinal : No Nausea, No Vomiting, No Diarrhea, No Constipation, No abdominal Pain, No Hematochezia, No Melena Genitourinary : No Dysuria, No Urinary Frequency, No Hematuria, pos retention Musculoskeletal : No joint pain, No Myalgias, No Joint Swelling Skin : No Skin Lesions, No rash Neuro : No Weakness, No Numbness, No Dizziness, No Headache Psych : No Anxiety/Panic, No Depression Heme/Lymph: No Bruising, No Bleeding,No Lymphadenopathy Endocrine : No Polyuria, No Polydipsia All other systems reviewed and are negative [facility] Past Medical History Medical History Benign essential hypertension Benign prostatic hyperplasia with lower urinary tract symptoms BPH associated with nocturia Chronic constipation Chronic kidney disease (CKD), stage II (mild) Overweight (BMI 25.0-29.9) Pure hypercholesterolemia Screening for prostate cancer Type 2 diabetes mellitus with diabetic chronic kidney disease Surgical History History of colonoscopy History of hemorrhoidectomy History of inguinal hernia repair Family History Family History Father No problems noted. Mother Medical history unknown Social History Social History Household Members: Spouse Housing: Apartment Alcohol intake: never Patient Tobacco Use Status: Never used Tobacco Second Hand Smoke Exposure: Yes Advance Directives: No Advance Directives Information Provided: No service: No Current occupational status: retired Physical Exam Vital Signs: Vital Signs: Last Vital Signs Temp 98.3 F 02/12/21 07:17 Pulse 101 H 02/12/21 07:17 Resp 16 02/12/21 07:17 BP 214/96 H 02/12/21 07:17 Pulse Ox 98 02/12/21 07:17 BMI result Body Mass Index 26.3 Appearance: Alert. Oriented X3. No acute distress. Eyes: Pupils equal, round and reactive to light. ENT: Pharynx normal. Neck: Normal inspection. Neck supple. CVS: Normal heart rate and rhythm. Pulses normal. Respiratory: No respiratory distress. Breath sounds normal. Abdomen: Soft and moderate suprapubic ttp with fullnesss Skin: Skin warm and dry. Normal skin color. Normal skin turgor. Extremities: No lower extremity edema. No calf ttp Neuro: Oriented X 3. No motor deficit. No sensory deficit. Course Course Course Narrative: labs at baseline, no UTI, up draining well. MDM - Male Genitourinary MDM Narrative Medical decision making narrative: 70 yo male with hx of HLD, HTN, BPH on flomax, CKD, DM, hx of retention and need for catheters in the past comes in with c/o urinary retention since 10pm. At this time bladder scan shows 600mL will need labs, UA, up catheter. Has used catheter in the past without issue, has urologist he can follow up with. Anticipate DC home. Lab Data Result diagrams: 02/12/21 08:27 02/12/21 08:27 Labs: Lab Results 02/12/21 02/12/21 02/12/21 Range/Units 08:11 08:27 08:27 WBC 5.3 (4.8-10.8) X10*3/uL RBC 4.53 L (4.60-5.80) X10*6/uL Hgb 12.5 L (14.0-18.0) g/dl Hct 38.2 L (42.0-52.0) % MCV 84.3 (80.0-98.0) fL MCH 27.6 (27.0-33.0) pg MCHC 32.7 (31.0-36.0) g/dl RDW 13.8 (11.0-16.0) % Plt Count 159 L (160-400) X10*3/uL MPV 10.6 (9.4-12.4) fL Immature Gran % (Auto) 0.4 (0.0-0.4) % Neut % (Auto) 70.8 (45-73) % Lymph % (Auto) 21.2 (20-40) % [place] % (Auto) 6.0 (2-11) % Eos % (Auto) 0.8 (0-4) % Baso % (Auto) 0.8 (0-2) % Lymph # (Auto) 1.1 L (1.2-4.9) X10*3/uL [place] # (Auto) 0.3 (0.1-1.2) X10*3/uL Eos # (Auto) 0.0 (0.0-0.4) X10*3/uL Baso # (Auto) 0.0 (0.0-0.2) X10*3/uL Abs Immat Gran (auto) 0.02 (0.00-0.03) X10*3/uL Absolute Neuts (auto) 3.8 (2.0-8.3) x10*3/uL Absolute Nucleated RBC 0.000 (0.0-0.012) X10*3/uL Nucleated RBC % (auto) 0.0 (0.0-0.2) /100WBC Sodium 143 (135-145) mmol/L Potassium 4.5 (3.3-5.1) mmol/L Chloride 109 H (96-108) mmol/L Carbon Dioxide 27 (22-29) mmol/L Anion Gap 12 (12-20) BUN 14 (9-16) mg/dL Creatinine 1.19 (0.5-1.4) mg/dL Estim Creat Clear Calc 55.8 Estimated GFR > 60 Random Glucose 107 (60-115) mg/dL Calcium 9.2 D (8.4-10.2) mg/dL Urine Color YELLOW Urine Appearance CLEAR Urine pH 6.0 (5.0-8.0) Ur Specific [place] 1.020 (1.005-1.025) Urine Protein NEG (NEG-TRACE) MG/DL Urine Glucose (UA) NEG (NEG) MG/DL Urine Ketones NEG (NEG) MG/DL Urine Blood NEG (NEG) Urine Nitrite NEG (NEG) Ur Leukocyte Esterase NEG (NEG) Discharge Plan Discharge Clinical Impression: Acute urinary retention Patient Disposition: Home, Self-Care Instructions: Urinary Retention in Men (ED), Up Catheter Placement and Care (ED) Additional Instructions: return to ED for any worsening symptoms or concerns Prescriptions: No Action valsartan 80 mg tablet 80 mg PO DAILY Qty: 90 RF: 5 atorvastatin 20 mg tablet 20 mg PO DAILY Qty: 90 RF: 1 glipizide 2.5 mg tablet extended release 24 hr 2.5 mg PO DAILY Qty: 90 RF: 1 Tradjenta 5 mg tablet 5 mg PO DAILY Qty: 90 RF: 0 (DME) FreeStyle Lite Strips Strip See Rx Instructions .ROUTE .MEDSUPPLY Qty: 100 RF: 12 finasteride 5 mg tablet 5 mg PO DAILY 90 Days Qty: 90 RF: 1 tamsulosin 0.4 mg capsule 0.8 mg PO DAILY 90 Days Qty: 180 RF: 1 Referrals: Henrik Ramsey MD [Physician] - 5 days Print Language: Vietnamese
[2021-02-12 07:38] VITALS: BMI 26.3
[2021-02-12 08:20] LABS: Appearance Urine CLEAR; Color Urine YELLOW; Glucose Urine UA NEG (NEG); Leukocyte Esterase Urine NEG (NEG); Nitrite Urine NEG (NEG); Urine Blood NEG (NEG); Urine Ketones NEG (NEG); Urine Protein NEG (NEG-TRACE)
[2021-02-12 08:30] LABS: MANUAL DIFF FLAG NO
[2021-02-12 08:32] LABS: Basophils Percent Auto 0.8 % (0-2); Eosinophils Percent Auto 0.8 % (0-4); Hematocrit 38.2 % (42.0-52.0); Hemoglobin 12.5 g/dl (14.0-18.0); Imm Gran Abs Auto 0.02 X10*3/uL (0.00-0.03); Imm Gran Pct Auto 0.4 % (0.0-0.4); Lymphocytes Absolute Auto 1.1 X10*3/uL (1.2-4.9); Lymphocytes Percent Auto 21.2 % (20-40); Mean Corpuscular HGB Conc 32.7 g/dl (31.0-36.0); Mean Corpuscular Hemoglobin 27.6 pg (27.0-33.0); Mean Corpuscular Volume 84.3 fL (80.0-98.0); Mean Platelet Volume 10.6 fL (9.4-12.4); Monocytes Absolute Auto 0.3 X10*3/uL (0.1-1.2); Neutrophils Absolute Auto 3.8 x10*3/uL (2.0-8.3); Neutrophils Percent Auto 70.8 % (45-73); Platelet Count 159 X10*3/uL (160-400); Red Blood Count 4.53 X10*6/uL (4.60-5.80); Red Cell Distribution Width 13.8 % (11.0-16.0); White Blood Count 5.3 X10*3/uL (4.8-10.8)
[2021-02-12 08:46] LABS: Anion Gap 12 (12-20); Blood Urea Nitrogen 14 mg/dL (9-16); Calcium 9.2 mg/dL (8.4-10.2); Carbon Dioxide 27 mmol/L (22-29); Chloride 109 mmol/L (96-108); Creatinine Clr Calc Pharmacy 55.8; Estimated Glomerular Filt Rate > 60; Glucose Random 107 mg/dL (60-115); Potassium 4.5 mmol/L (3.3-5.1); Sodium 143 mmol/L (135-145)
[2021-02-12 08:51] VITALS: BP 136/86
== END 2021-02-12 09:49 | disposition home or self-care (01) ==
PROVIDERS: Emergency Provider Emergency Medicine; PCP Internal Medicine
DX: R33.9 Retention of urine, unspecified (principal); N40.0 Benign prostatic hyperplasia without lower urinary tract symptoms; E11.22 Type 2 diabetes mellitus with diabetic chronic kidney disease; I12.9 Hypertensive chronic kidney disease with stage 1 through stage 4 chronic kidney disease, or unspecified chronic kidney disease; N18.2 Chronic kidney disease, stage 2 (mild)
CPT/HCPCS: 36415; 51702; 51798; 80048; 81003; 85025; 99283; 99284

== ENCOUNTER 2021-02-14 08:13 | Emergency (ER) | payer MEDICARE, OTHER, SELFPAY ==
[2021-02-14 08:18] VITALS: BP 162/72; PULSE 82; RESP 16; TEMP 36; O2SAT 99; BMI 26.1
--- NOTE | 2021-02-14 09:48 | ED.GENADULT ---
HPI - General Adult General Chief complaint: General Medical Stated complaint: Catheter Removal Time Seen by Provider: 02/14/21 09:39 Source: patient Mode of arrival: ambulatory Limitations: no limitations History of Present Illness HPI narrative: patient comes to the emergency room requesting to have his Bourgeois removed. Patient was seen here on February 12 for urinary retention. Bourgeois was placed. Patient was supposed to follow-up with Urology, but at this time his Urologist is on vacation. patient denies any fever, no chills, no flank pain. Related Data Previous Rx's Medication Instructions Recorded valsartan 80 mg tablet 80 mg PO DAILY #90 tab 12/04/19 blood sugar diagnostic (FreeStyle #100 ea 06/22/20 Lite Strips) atorvastatin 20 mg tablet 20 mg PO DAILY #90 tab 12/07/20 finasteride 5 mg tablet 5 mg PO DAILY 90 Days #90 tab 01/06/21 tamsulosin 0.4 mg capsule 0.8 mg PO DAILY 90 Days #180 cap 01/06/21 glipizide 2.5 mg tablet, extended 2.5 mg PO DAILY #90 tab 01/09/21 release 24 hr linagliptin 5 mg tablet (Tradjenta) 5 mg PO DAILY #90 tab 02/06/21 Allergies Allergy/AdvReac Type Severity Reaction Status Date / Time metformin [METFORMIN] AdvReac Mild STOMACH Verified 02/14/21 08:18 UPSET,DIARRHEA Review of Systems Review of Systems: Constitutional : No Weight loss, No Fever, No Chills, No Night Sweats, No Fatigue, No Malaise ENT/Mouth : No Hearing loss, No Ear Pain, No Nasal Congestion, No Sinus Pain, No Hoarseness, No sore throat, No Rhinorrhea, No Swallowing Difficulty Eyes: No Eye Pain, No Swelling, No Redness, No Foreign Body, No Discharge, No Vision Changes Cardiovascular : No Chest Pain, No SOB, No Dyspnea on Exertion, No Orthopnea, No Edema, No Palpitations Respiratory : No Cough, No Sputum, No Wheezing, No Smoke Exposure, No Dyspnea Gastrointestinal : No Nausea, No Vomiting, No Diarrhea, No Constipation, No abdominal Pain, No Hematochezia, No Melena Genitourinary : no irregular bleeding, No Dysuria, No Urinary Frequency, No Hematuria, No Urinary Incontinence, No Urgency, No Flank Pain, No Urinary Flow Changes, No Hesitancy Musculoskeletal : No joint pain, No Myalgias, No Joint Swelling Skin : No Skin Lesions, No rash Neuro : No Weakness, No Numbness, No Paresthesias, No Loss of Consciousness, No Dizziness, No Headache Psych : No Anxiety/Panic, No Depression, No SI/HI/AH/VH, No Social Issues, Heme/Lymph: No Bruising, No Bleeding,No Lymphadenopathy Endocrine : No Polyuria, No Polydipsia, No Temperature Intolerance [facility] Past Medical History Medical History Benign essential hypertension Benign prostatic hyperplasia with lower urinary tract symptoms BPH associated with nocturia Chronic constipation Chronic kidney disease (CKD), stage II (mild) Overweight (BMI 25.0-29.9) Pure hypercholesterolemia Screening for prostate cancer Type 2 diabetes mellitus with diabetic chronic kidney disease Surgical History History of colonoscopy History of hemorrhoidectomy History of inguinal hernia repair Family History Family History Father No problems noted. Mother Medical history unknown Social History Social History Household Members: Spouse Housing: Apartment Alcohol intake: never Patient Tobacco Use Status: Never used Tobacco Second Hand Smoke Exposure: Yes Advance Directives: No Advance Directives Information Provided: No service: No Current occupational status: retired Physical Exam Vital Signs: Vital Signs: Last Vital Signs Temp 96.8 F 02/14/21 08:18 Pulse 82 02/14/21 08:18 Resp 16 02/14/21 08:18 BP 162/72 H 02/14/21 08:18 Pulse Ox 99 02/14/21 08:18 BMI result Body Mass Index 26.1 Const: Other: Appearance: Alert. Oriented X3. No acute distress. Eyes: Pupils equal, round and reactive to light. ENT: Pharynx normal. Neck: Normal inspection. Neck supple. No lymph nodes noted. No crepitus CVS: Normal heart rate and rhythm. Pulses normal. Normal S1 and S2 Respiratory: No respiratory distress. Breath sounds normal. No Wheezing. No rales Abdomen: Soft and nontender. No rigidity. No distention. : Bourgeois catheter in place Skin: Skin warm and dry. Normal skin color. Normal skin turgor. Extremities: No lower extremity edema. No Lacerations. No Rash Neuro: Oriented X 3. No motor deficit. No sensory deficit. Moving all extermities. No slurred speech. Course Course Course Narrative: Bourgeois catheter was removed. Patient states that he does not want to stay in the emergency room to wait and see if he can urinate. Patient states that he has to leave as soon as possible. I discussed with the patient that if he has any reoccurring symptoms, he needs to return to the emergency room. Discharge Plan Discharge Clinical Impression: Encounter for Bourgeois catheter removal Patient Disposition: Home, Self-Care Instructions: Bourgeois Catheter Removal (DC) Prescriptions: No Action valsartan 80 mg tablet 80 mg PO DAILY Qty: 90 RF: 5 atorvastatin 20 mg tablet 20 mg PO DAILY Qty: 90 RF: 1 glipizide 2.5 mg tablet extended release 24 hr 2.5 mg PO DAILY Qty: 90 RF: 1 Tradjenta 5 mg tablet 5 mg PO DAILY Qty: 90 RF: 0 (DME) FreeStyle Lite Strips Strip See Rx Instructions .ROUTE .MEDSUPPLY Qty: 100 RF: 12 finasteride 5 mg tablet 5 mg PO DAILY 90 Days Qty: 90 RF: 1 tamsulosin 0.4 mg capsule 0.8 mg PO DAILY 90 Days Qty: 180 RF: 1
== END 2021-02-14 10:00 | disposition home or self-care (01) ==
PROVIDERS: Emergency Provider Emergency Medicine; PCP Internal Medicine
DX: Z46.6 Encounter for fitting and adjustment of urinary device (principal); R33.9 Retention of urine, unspecified; E11.22 Type 2 diabetes mellitus with diabetic chronic kidney disease; I12.9 Hypertensive chronic kidney disease with stage 1 through stage 4 chronic kidney disease, or unspecified chronic kidney disease; N18.2 Chronic kidney disease, stage 2 (mild)
CPT/HCPCS: 99283

== ENCOUNTER 2021-06-05 11:15 | Outpatient (REF) | payer MEDICARE, OTHER, SELFPAY ==
[2021-06-05 11:31] LABS: MANUAL DIFF FLAG NO
[2021-06-05 12:15] LABS: Basophils Absolute Auto 0.1 X10*3/uL (0.0-0.2); Basophils Percent Auto 1.3 % (0-2); Eosinophils Absolute Auto 0.1 X10*3/uL (0.0-0.4); Hematocrit 41.2 % (42.0-52.0); Hemoglobin 13.1 g/dl (14.0-18.0); Imm Gran Abs Auto 0.01 X10*3/uL (0.00-0.03); Imm Gran Pct Auto 0.2 % (0.0-0.4); Lymphocytes Absolute Auto 2.1 X10*3/uL (1.2-4.9); Lymphocytes Percent Auto 34.3 % (20-40); Mean Corpuscular HGB Conc 31.8 g/dl (31.0-36.0); Mean Corpuscular Hemoglobin 27.1 pg (27.0-33.0); Mean Corpuscular Volume 85.1 fL (80.0-98.0); Mean Platelet Volume 11.8 fL (9.4-12.4); Monocytes Absolute Auto 0.5 X10*3/uL (0.1-1.2); Monocytes Percent Auto 7.6 % (2-11); Neutrophils Absolute Auto 3.4 x10*3/uL (2.0-8.3); Neutrophils Percent Auto 55.6 % (45-73); Platelet Count 178 X10*3/uL (160-400); Red Blood Count 4.84 X10*6/uL (4.60-5.80); Red Cell Distribution Width 13.7 % (11.0-16.0); White Blood Count 6.2 X10*3/uL (4.8-10.8)
[2021-06-05 12:15] LABS: Appearance Urine CLEAR; Color Urine YELLOW; Glucose Urine UA NEG (NEG); Leukocyte Esterase Urine NEG (NEG); Nitrite Urine NEG (NEG); PH 5.5 (5.0-8.0); Specific Gravity - Urine >= 1.030 (1.005-1.025); Urine Blood NEG (NEG); Urine Ketones NEG (NEG); Urine Protein NEG (NEG-TRACE)
[2021-06-05 12:36] LABS: Creatinine Urine 253.44 mg/dL; Microalbum/Creatinine Ratio Ur 5.5 ug/mg cr
[2021-06-05 12:44] LABS: Alanine Aminotransferase 13 U/L (0-40); Albumin Level 4.1 g/dL (3.5-5.0); Alkaline Phosphatase 61 U/L (39-117); Anion Gap 12 (12-20); Aspartate Amino Transferase 17 U/L (5-37); Bilirubin Total 0.5 mg/dL (0.0-1.0); Blood Urea Nitrogen 16 mg/dL (9-16); Calcium 9.2 mg/dL (8.4-10.2); Carbon Dioxide 25 mmol/L (22-29); Chloride 108 mmol/L (96-108); Cholesterol 151 mg/dL; Estimated Glomerular Filt Rate 56; Glucose Fasting 91 mg/dL (60-99); HDL Cholesterol 55 mg/dL; LDL Cholesterol Calculated 90 mg/dl; Potassium 4.5 mmol/L (3.3-5.1); Sodium 140 mmol/L (135-145); Total Protein 6.9 g/dL (6.5-8.0); Triglycerides 33 mg/dL
[2021-06-05 12:47] LABS: Estimated Average Glucose 137 mg/dL; Hemoglobin A1c % 6.4 %
[2021-06-05 12:55] LABS: TSH reflex Free T4 0.68 uIU/mL (0.32-4.0)
== END 2021-06-05 11:16 | disposition home or self-care (01) ==
LOC: HO.LAB 11:15
PROVIDERS: PCP Internal Medicine; Visit Provider Internal Medicine
DX: E78.00 Pure hypercholesterolemia, unspecified (principal); E11.9 Type 2 diabetes mellitus without complications; E55.9 Vitamin D deficiency, unspecified; I10 Essential (primary) hypertension
CPT/HCPCS: 36415; 80053; 80061; 81003; 82043; 82306; 83036; 84443; 85025

== ENCOUNTER 2021-06-26 08:25 | Outpatient (REF) | payer MEDICARE, OTHER, SELFPAY | END 2021-06-26 08:26 | disposition home or self-care (01) | LOC: HO.LAB 08:25 | PROVIDERS: PCP Internal Medicine; Visit Provider Urology | DX: Z12.5 Encounter for screening for malignant neoplasm of prostate (principal); N13.8 Other obstructive and reflux uropathy; N40.1 Benign prostatic hyperplasia with lower urinary tract symptoms | CPT/HCPCS: 36415; 84153 ==

== ENCOUNTER → 2021-07-06 08:44 | Outpatient (BNVA) | payer MEDICARE, OTHER, SELFPAY | PROVIDERS: PCP Internal Medicine; Visit Provider Urology | DX: N40.1 Benign prostatic hyperplasia with lower urinary tract symptoms (principal); R35.1 Nocturia | CPT/HCPCS: 51798; 99212 ==

== ENCOUNTER 2021-12-22 07:37 | Outpatient (REF) | payer MEDICARE, MEDICAID, SELFPAY | END 2021-12-22 07:38 | disposition home or self-care (01) | LOC: HO.LAB 07:37 | PROVIDERS: PCP Internal Medicine; Visit Provider Urology | DX: N40.1 Benign prostatic hyperplasia with lower urinary tract symptoms (principal); N13.8 Other obstructive and reflux uropathy; R35.1 Nocturia; I10 Essential (primary) hypertension; E78.00 Pure hypercholesterolemia, unspecified; E11.9 Type 2 diabetes mellitus without complications; E55.9 Vitamin D deficiency, unspecified; Z12.5 Encounter for screening for malignant neoplasm of prostate | CPT/HCPCS: 36415; 84153 ==

== ENCOUNTER → 2022-01-10 08:57 | Outpatient (BNVA) | payer MEDICARE, MEDICAID, SELFPAY | PROVIDERS: PCP Internal Medicine; Visit Provider Urology | DX: N40.1 Benign prostatic hyperplasia with lower urinary tract symptoms (principal); R33.8 Other retention of urine; R35.1 Nocturia; R97.20 Elevated prostate specific antigen [PSA]; Z79.899 Other long term (current) drug therapy | CPT/HCPCS: 51798; 99212 ==

== ENCOUNTER 2022-02-08 09:39 | Outpatient (REF) | payer MEDICARE, MEDICAID, SELFPAY ==
[2022-02-08 10:02] LABS: MANUAL DIFF FLAG NO
[2022-02-08 10:33] LABS: Basophils Absolute Auto 0.1 X10*3/uL (0.0-0.2); Basophils Percent Auto 0.9 % (0-2); Eosinophils Absolute Auto 0.1 X10*3/uL (0.0-0.4); Eosinophils Percent Auto 0.9 % (0-4); Hematocrit 41.2 % (42.0-52.0); Hemoglobin 13.1 g/dl (14.0-18.0); Imm Gran Abs Auto 0.02 X10*3/uL (0.00-0.03); Imm Gran Pct Auto 0.3 % (0.0-0.4); Lymphocytes Absolute Auto 3.5 X10*3/uL (1.2-4.9); Lymphocytes Percent Auto 44.2 % (20-40); Mean Corpuscular HGB Conc 31.8 g/dl (31.0-36.0); Mean Corpuscular Hemoglobin 27.1 pg (27.0-33.0); Mean Corpuscular Volume 85.1 fL (80.0-98.0); Mean Platelet Volume 10.3 fL (9.4-12.4); Monocytes Absolute Auto 0.5 X10*3/uL (0.1-1.2); Monocytes Percent Auto 6.5 % (2-11); Neutrophils Absolute Auto 3.7 x10*3/uL (2.0-8.3); Neutrophils Percent Auto 47.2 % (45-73); Platelet Count 203 X10*3/uL (160-400); Red Blood Count 4.84 X10*6/uL (4.60-5.80); Red Cell Distribution Width 13.9 % (11.0-16.0); White Blood Count 7.8 X10*3/uL (4.8-10.8)
[2022-02-08 10:42] LABS: Estimated Average Glucose 143 mg/dL; Hemoglobin A1c % 6.6 %
[2022-02-08 11:09] LABS: Alanine Aminotransferase 57 U/L (0-40); Albumin Level 4.5 g/dL (3.5-5.0); Alkaline Phosphatase 60 U/L (39-117); Anion Gap 10 (12-20); Aspartate Amino Transferase 39 U/L (5-37); Blood Urea Nitrogen 16 mg/dL (9-16); Calcium 9.8 mg/dL (8.4-10.2); Carbon Dioxide 28 mmol/L (22-29); Chloride 107 mmol/L (96-108); Cholesterol 191 mg/dL; Estimated Glomerular Filt Rate 57; Glucose Fasting 93 mg/dL (60-99); HDL Cholesterol 70 mg/dL; LDL Cholesterol Calculated 107 mg/dl; Sodium 140 mmol/L (135-145); Total Protein 7.5 g/dL (6.5-8.0); Triglycerides 70 mg/dL
[2022-02-08 11:17] LABS: Appearance Urine Clear; Color Urine Yellow; Glucose Urine UA Negative (Negative); Leukocyte Esterase Urine Negative (Negative); Nitrite Urine Negative (Negative); PH 5.5 (5.0-9.0); Urine Blood Negative (Negative); Urine Ketones Negative (Negative); Urine Protein Negative (Neg-Trace)
[2022-02-08 11:28] LABS: Vitamin D 25-OH Total 40.6 ng/mL (>30)
[2022-02-08 11:45] LABS: Creatinine Urine 180.28 mg/dL; Microalbum/Creatinine Ratio Ur 3.8 ug/mg cr
== END 2022-02-08 09:40 | disposition home or self-care (01) ==
LOC: HO.LAB 09:39
PROVIDERS: PCP Internal Medicine; Visit Provider Internal Medicine
DX: E55.9 Vitamin D deficiency, unspecified (principal); E78.00 Pure hypercholesterolemia, unspecified; E11.9 Type 2 diabetes mellitus without complications; I10 Essential (primary) hypertension
CPT/HCPCS: 36415; 80053; 80061; 81003; 82043; 82306; 83036; 85025

== ENCOUNTER 2022-06-11 09:55 | Outpatient (REF) | payer MEDICARE, MEDICAID, SELFPAY ==
[2022-06-11 10:15] LABS: MANUAL DIFF FLAG NO
[2022-06-11 11:23] LABS: Appearance Urine Clear; Color Urine Yellow; Glucose Urine UA Negative (Negative); Leukocyte Esterase Urine Negative (Negative); Nitrite Urine Negative (Negative); PH 5.5 (5.0-9.0); Specific Gravity - Urine 1.025 (1.005-1.025); Urine Blood Negative (Negative); Urine Ketones Negative (Negative); Urine Protein Negative (Neg-Trace)
[2022-06-11 11:41] LABS: Basophils Absolute Auto 0.1 X10*3/uL (0.0-0.2); Basophils Percent Auto 0.7 % (0-2); Eosinophils Absolute Auto 0.1 X10*3/uL (0.0-0.4); Eosinophils Percent Auto 0.8 % (0-4); Hematocrit 44.6 % (42.0-52.0); Hemoglobin 14.4 g/dl (14.0-18.0); Imm Gran Abs Auto 0.02 X10*3/uL (0.00-0.03); Imm Gran Pct Auto 0.2 % (0.0-0.4); Lymphocytes Absolute Auto 3.4 X10*3/uL (1.2-4.9); Lymphocytes Percent Auto 37.8 % (20-40); Mean Corpuscular HGB Conc 32.3 g/dl (31.0-36.0); Mean Corpuscular Hemoglobin 27.9 pg (27.0-33.0); Mean Corpuscular Volume 86.3 fL (80.0-98.0); Mean Platelet Volume 11.1 fL (9.4-12.4); Monocytes Absolute Auto 0.6 X10*3/uL (0.1-1.2); Neutrophils Absolute Auto 4.9 x10*3/uL (2.0-8.3); Neutrophils Percent Auto 53.5 % (45-73); Platelet Count 207 X10*3/uL (160-400); Red Blood Count 5.17 X10*6/uL (4.60-5.80); Red Cell Distribution Width 13.7 % (11.0-16.0); White Blood Count 9.1 X10*3/uL (4.8-10.8)
[2022-06-11 11:44] LABS: Estimated Average Glucose 154 mg/dL
[2022-06-11 12:17] LABS: Creatinine Urine 290.37 mg/dL; Microalbum/Creatinine Ratio Ur 4.4 ug/mg cr
[2022-06-11 12:38] LABS: Alanine Aminotransferase 14 U/L (0-40); Albumin Level 4.3 g/dL (3.5-5.0); Alkaline Phosphatase 69 U/L (39-117); Anion Gap 12 (12-20); Aspartate Amino Transferase 19 U/L (5-37); Blood Urea Nitrogen 18 mg/dL (9-16); Calcium 9.8 mg/dL (8.4-10.2); Carbon Dioxide 28 mmol/L (22-29); Chloride 107 mmol/L (96-108); Cholesterol 206 mg/dL; Estimated Glomerular Filt Rate 49; Glucose Fasting 138 mg/dL (60-99); HDL Cholesterol 58 mg/dL; Iron 97 mcg/dL (45-160); LDL Cholesterol Calculated 125 mg/dl; Percent Iron Saturation 35 % (15-50); Potassium 4.4 mmol/L (3.3-5.1); Sodium 143 mmol/L (135-145); Total Iron Binding Capacity 281 mcg/dL (228-428); Total Protein 7.2 g/dL (6.5-8.0); Triglycerides 118 mg/dL; Unsaturated Iron Binding 184 ug/dL
[2022-06-11 12:59] LABS: Folate 13.6 ng/mL (> or = 4.0); TSH reflex Free T4 0.57 uIU/mL (0.32-4.0); Vitamin B12 845 pg/mL (200-900); Vitamin D 25-OH Total 47.3 ng/mL (>30)
== END 2022-06-11 09:56 | disposition home or self-care (01) ==
LOC: HO.LAB 09:55
PROVIDERS: PCP Internal Medicine; Visit Provider Internal Medicine
DX: E78.00 Pure hypercholesterolemia, unspecified (principal); E55.9 Vitamin D deficiency, unspecified; E11.9 Type 2 diabetes mellitus without complications; D64.9 Anemia, unspecified; R30.0 Dysuria; E53.8 Deficiency of other specified B group vitamins; I10 Essential (primary) hypertension
CPT/HCPCS: 36415; 80053; 80061; 81003; 82043; 82306; 82607; 82746; 83036; 83540; 84443; 85025

== ENCOUNTER 2022-10-23 09:11 | Outpatient (REF) | payer MEDICARE, MEDICAID, SELFPAY ==
[2022-10-23 09:27] LABS: MANUAL DIFF FLAG NO
[2022-10-23 10:01] LABS: Basophils Absolute Auto 0.1 X10*3/uL (0.0-0.2); Basophils Percent Auto 0.9 % (0-2); Eosinophils Absolute Auto 0.1 X10*3/uL (0.0-0.4); Eosinophils Percent Auto 1.1 % (0-4); Hematocrit 41.6 % (42.0-52.0); Hemoglobin 13.3 g/dl (14.0-18.0); Imm Gran Abs Auto 0.02 X10*3/uL (0.00-0.03); Imm Gran Pct Auto 0.2 % (0.0-0.4); Lymphocytes Absolute Auto 3.2 X10*3/uL (1.2-4.9); Lymphocytes Percent Auto 39.5 % (20-40); Mean Corpuscular Hemoglobin 27.2 pg (27.0-33.0); Mean Corpuscular Volume 85.1 fL (80.0-98.0); Mean Platelet Volume 11.3 fL (9.4-12.4); Monocytes Absolute Auto 0.7 X10*3/uL (0.1-1.2); Monocytes Percent Auto 8.2 % (2-11); Neutrophils Percent Auto 50.1 % (45-73); Platelet Count 179 X10*3/uL (160-400); Red Blood Count 4.89 X10*6/uL (4.60-5.80); Red Cell Distribution Width 13.8 % (11.0-16.0); White Blood Count 8.1 X10*3/uL (4.8-10.8)
[2022-10-23 10:20] LABS: Estimated Average Glucose 146 mg/dL; Hemoglobin A1c % 6.7 % (<6.0)
[2022-10-23 10:52] LABS: Appearance Urine Clear; Color Urine Yellow; Glucose Urine UA Negative (Negative); Leukocyte Esterase Urine Negative (Negative); Nitrite Urine Negative (Negative); Urine Blood Negative (Negative); Urine Ketones Negative (Negative); Urine Protein Negative (Neg-Trace)
[2022-10-23 11:25] LABS: Microalbum/Creatinine Ratio Ur 3.1 ug/mg cr (<30)
[2022-10-23 11:58] LABS: Alanine Aminotransferase 10 U/L (0-40); Albumin Level 4.2 g/dL (3.5-5.0); Alkaline Phosphatase 70 U/L (39-117); Anion Gap 10 (12-20); Aspartate Amino Transferase 14 U/L (5-37); Bilirubin Total 0.9 mg/dL (0.0-1.0); Blood Urea Nitrogen 15 mg/dL (9-16); Calcium 9.6 mg/dL (8.4-10.2); Carbon Dioxide 28 mmol/L (22-29); Chloride 109 mmol/L (96-108); Cholesterol 161 mg/dL (<200); Estimated Glomerular Filt Rate 58; Glucose Fasting 91 mg/dL (60-99); HDL Cholesterol 53 mg/dL (>40); LDL Cholesterol Calculated 87 mg/dL (<100); Potassium 4.1 mmol/L (3.3-5.1); Sodium 143 mmol/L (135-145); TSH reflex Free T4 0.73 uIU/mL (0.32-4.0); Total Protein 7.3 g/dL (6.5-8.0); Triglycerides 105 mg/dL (<150); Vitamin D 25-OH Total 48.9 ng/mL (>30)
[2022-10-23 12:09] LABS: Folate 11.7 ng/mL (> or = 4.0); Vitamin B12 594 pg/mL (200-900)
== END 2022-10-23 09:12 | disposition home or self-care (01) ==
LOC: HO.LAB 09:11
PROVIDERS: PCP Internal Medicine; Visit Provider Internal Medicine
DX: E53.8 Deficiency of other specified B group vitamins (principal); I10 Essential (primary) hypertension; E11.9 Type 2 diabetes mellitus without complications; R30.0 Dysuria; E55.9 Vitamin D deficiency, unspecified; E78.00 Pure hypercholesterolemia, unspecified
CPT/HCPCS: 36415; 80053; 80061; 81003; 82043; 82306; 82570; 82607; 82746; 83036; 84443; 85025

== ENCOUNTER 2022-10-31 09:31 | Outpatient (AMB) | payer MEDICARE, MEDICAID, SELFPAY ==
--- NOTE | 2022-10-31 09:32 | MHC.PC.OV ---
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 Accompanied by: Self / Same As Patient Allergies metformin [METFORMIN] Adverse Reaction (Mild, Verified 10/31/22 10:16) STOMACH UPSET,DIARRHEA Medication List - Last Reconciled 10/31/22 by Jimmy Hurtado MD atorvastatin 40 mg PO DAILY 90 days blood sugar diagnostic (FreeStyle Lite Strips) As directed - test 1 to 2 times a day cholecalciferol (vitamin D3) 50 mcg PO DAILY 90 days finasteride 5 mg PO .Sat glipizide ER 2.5 mg PO DAILY sennosides (senna) 17.2 mg (2 x 8.6 mg) PO BEDTIME PRN 30 days tamsulosin 0.8 mg (2 x 0.4 mg) PO DAILY 90 days Tradjenta (linagliptin) 5 mg PO DAILY 90 days NS valsartan 80 mg PO DAILY 90 days Tobacco use date assessed: 06/22/22 Fall risk assessment: No Falls in past year Last assessed Fall Risk: 10/31/22 Dental Screening Dental Screen Date: 10/31/22 Did you have a dental visit in the last 12 months?: No Did you have a dental problem in the last 6 months where you did not have access to dental care?: No Was dental information given to patient?: Patient declined HPI hyperlipidemia, DM, CKD HPI Details Patient comes in today for his follow up visit States that he feels okay He denies any headaches or dizziness Denies any chest pains, no SOB No nausea/vomiting, no abdominal pain No change in bowel habits noted Had his follow up labs done last week - to discuss his results [facility] Medical History Chronic kidney disease, stage III (moderate) Vitamin D deficiency BPH associated with nocturia Chronic constipation Benign prostatic hyperplasia with lower urinary tract symptoms Overweight (BMI 25.0-29.9) Pure hypercholesterolemia Benign essential hypertension Type 2 diabetes mellitus with diabetic chronic kidney disease Surgical History History of colonoscopy History of hemorrhoidectomy History of inguinal hernia repair Family History Father No problems noted. Mother Medical history unknown Social History Household Members: Spouse Housing: Apartment Alcohol intake: never Patient Tobacco Use Status: Never used Tobacco e-Cigarette/Vaping Use: Never Used Second Hand Smoke Exposure: Yes service: No Current occupational status: retired Cognitive needs: No Hearing needs: No Vision needs: Yes Questionnaire Thrive Questionnaire Date Thrive assessed: 06/22/22 DILLON-7 AMB Questionnaire DILLON-7 Date DILLON - 7 assessed: 10/31/22 Feeling nervous, anxious, or on edge: 0 = Not at all Not being able to stop or control worryin = Not at all Worrying too much about different things: 0 = Not at all Trouble relaxin = Not at all Being so restless that it is hard to sit still: 0 = Not at all Becoming easily annoyed or irritable: 0 = Not at all Feeling afraid as if something awful might happen: 0 = Not at all Total DILLON-7 score (0-4 normal; 5-9 mild; 10-14 moderate; 15-21 severe): 0 Source: Developed by Drs. Vasile Wren, Bette Chen, Jeremiah Leija and colleagues, with an educational danis from [employer]. Review of Systems Const Denies chills, Denies fatigue, Denies fever(s) and Denies headache(s) ENT Denies dysphagia, Denies dizziness, Denies otalgia, Denies headache(s), Denies odynophagia and Denies sore throat Card Denies chest pain, Denies palpitations and Denies dyspnea Resp Denies cough and Denies dyspnea GI Denies abdominal pain, Denies constipation, Denies dysphagia, Denies heartburn, Denies diarrhea, Denies nausea, Denies odynophagia and Denies vomiting Denies hematuria, Reports difficulty urinating (at times - Rx helps), Denies dysuria, Denies nocturia and Denies urinary frequency Musc Denies arthralgias and Reports joint swelling (occasionally, over his knees) Skin/Breast Denies rash Neuro Denies dizziness and Denies headache(s) Endo Denies fatigue and Denies palpitations Physical exam (Primary Care) Vital Signs: Last Vital Signs BP 118/80 10/31/22 09:33 BMI result Body Mass Index 28.0 Tobacco/Smoking Status: Tobacco use Status Tobacco use date assessed 06/22/22 10/31/22 09:38 Patient Tobacco Use Status Never used Tobacco 10/31/22 09:38 e-Cigarette/Vaping Use Never Used 10/31/22 09:38 Thrive Assessment: Date of Thrive Assessment Date Thrive assessed 06/22/22 10/31/22 09:38 Const General: no acute distress and alert HENMT Ears: TM's normal bilaterally and EAC's normal Throat: Yes posterior oropharynx normal and Yes tonsils normal (no TP congestion noted) Neck Neck: Yes no lymphadenopathy and Yes supple Resp Auscultation: clear to auscultation bilaterally, no rales and no wheezes Cardio Rate: regular rate Rhythm: regular rhythm Heart sounds: no murmurs GI Palpation (GI): Soft to palpation and nontender Auscultation: normal bowel sounds Skin Rashes: no rashes Extrem General: Yes no clubbing, cyanosis or edema Assessment and Plan Assessment & Plan (1) Pure hypercholesterolemia: Code(s): E78.00 - Pure hypercholesterolemia, unspecified Plan: Results of his labs done last week reviewed and discussed with patient - advised that his cholesterol levels have improved significantly from previous (since we increased his Atorvastatin to 40 mg at his last visit) Reinforced low cholesterol diet Continue Atorvastatin 40 mg QD Will recheck his labs and fasting lipids in 4 months for follow up (2) Type 2 diabetes mellitus with diabetic chronic kidney disease: Code(s): E11.22 - Type 2 diabetes mellitus with diabetic chronic kidney disease Qualifiers: 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: without buttermilk drier operator use Chronic kidney disease stage: stage 2 (mild) Qualified Code(s): E11.22 - Type 2 diabetes mellitus with diabetic chronic kidney disease; N18.2 - Chronic kidney disease, stage 2 (mild) Plan: HgbA1c has improved slightly to 6.7% on his labs done last week (was at 7.0% a few months ago) - goal is <7.0% Reinforced diabetic diet Continue Tradjenta 5 mg QD and Glipizide XL 2.5 mg QD (3) Chronic kidney disease, stage III (moderate): Code(s): N18.30 - Chronic kidney disease, stage 3 unspecified Qualifiers: Chronic kidney disease stage 3 subtype: stage 3a (GFR 45-59) Qualified Code(s): N18.31 - Chronic kidney disease, stage 3a Plan: His renal function appears to have stabilized on his labs done last week Reinforced strict control of his diabetes and blood pressure to slow down the decline in his renal function Will continue to monitor his renal function and GFR closely (4) Benign essential hypertension: Code(s): I10 - Essential (primary) hypertension Plan: Reinforced low sodium diet - goal is systolic BP of at least 130 mm or less, given his recently declining renal function Continue Valsartan 80 mg QD (5) Elevated LFTs: Code(s): R79.89 - Other specified abnormal findings of blood chemistry Plan: Resolved - were most likely related to his weight Patient denies any abdominal pain/symptoms and states that he does NOT drink alcohol Will recheck his LFTs again in 4 months for follow up (6) Vitamin D deficiency: Code(s): E55.9 - Vitamin D deficiency, unspecified Plan: Continue Vitamin D3 2000 units QD (7) Anemia: Code(s): D64.9 - Anemia, unspecified Qualifiers: Anemia type: unspecified type Qualified Code(s): D64.9 - Anemia, unspecified Plan: Improved; serum iron levels were normal on his recent labs Colonoscopy done a few years ago in 03/2019 came out normal Will continue to monitor his CBC regularly (8) Constipation: Code(s): K59.00 - Constipation, unspecified Qualifiers: Constipation type: unspecified constipation type Qualified Code(s): K59.00 - Constipation, unspecified Plan: Improved; continue Senna 8.6 mg 1 to 2 tablets QD PRN Reinforced increased oral fluids and dietary fiber (9) Benign prostatic hyperplasia with lower urinary tract symptoms: Code(s): N40.1 - Benign prostatic hyperplasia with lower urinary tract symptoms Qualifiers: Lower urinary tract symptom detail: urinary retention Qualified Code(s): N40.1 - Benign prostatic hyperplasia with lower urinary tract symptoms; R33.8 - Other retention of urine Plan: Continue Tamsulosin 0.8 mg Q HS and Finasteride 5 mg TIW (dose was recently lowered by urology) Follow up with urology as scheduled? (10) Overweight (BMI 25.0-29.9): Code(s): E66.3 - Overweight Plan: Reinforced diet/exercise as tolerated/lose weight Plan Follow up in 4 months Orders: Orders TSH reflex Free T4 4 Months E78.00 - Pure hypercholesterolemia, unspecified Vitamin D 25-OH Total 4 Months E55.9 - Vitamin D deficiency, unspecified Complete Blood Count Auto Diff 4 Months I10 - Essential (primary) hypertension Comprehensive [place]. Panel Fast 4 Months E78.00 - Pure hypercholesterolemia, unspecified Lipid Panel 4 Months E78.00 - Pure hypercholesterolemia, unspecified Hemoglobin A1c 4 Months E11.9 - Type 2 diabetes mellitus without complications Microalbumin, Random (w Creat) 4 Months E11.9 - Type 2 diabetes mellitus without complications UA CC w/rflx Micro + Cult 4 Months R30.0 - Dysuria Coding Level of Care Code Est Pt Level 4 (11515) Diagnoses Pure hypercholesterolemia E78.00 Type 2 diabetes mellitus with stage 2 chronic kidney disease, without long-term current use of insulin E11.22; N18.2 Diabetes mellitus group home insulin use: without buttermilk drier operator use Chronic kidney disease stage: stage 2 (mild) Stage 3a chronic kidney disease N18.31 Chronic kidney disease stage 3 subtype: stage 3a (GFR 45-59) Benign essential hypertension I10 Elevated LFTs R79.89 Vitamin D deficiency E55.9 Anemia, unspecified type D64.9 Anemia type: unspecified type Constipation, unspecified constipation type K59.00 Constipation type: unspecified constipation type Benign prostatic hyperplasia with urinary retention N40.1; R33.8 Lower urinary tract symptom detail: urinary retention Overweight (BMI 25.0-29.9) E66.3
[2022-10-31 09:33] VITALS: BP 118/80; BMI 28.0
== END 2022-10-31 10:17 | disposition home or self-care (01) ==
PROVIDERS: PCP Internal Medicine; Visit Provider Internal Medicine
DX: E11.22 Type 2 diabetes mellitus with diabetic chronic kidney disease (principal); I12.9 Hypertensive chronic kidney disease with stage 1 through stage 4 chronic kidney disease, or unspecified chronic kidney disease; N18.31 Chronic kidney disease, stage 3a; E55.9 Vitamin D deficiency, unspecified; E78.00 Pure hypercholesterolemia, unspecified; N18.2 Chronic kidney disease, stage 2 (mild); R79.89 Other specified abnormal findings of blood chemistry; D64.9 Anemia, unspecified; K59.00 Constipation, unspecified; N40.1 Benign prostatic hyperplasia with lower urinary tract symptoms; R33.8 Other retention of urine; E66.3 Overweight
CPT/HCPCS: 99214

== ENCOUNTER 2022-12-13 02:36 | Emergency (ER) | payer MEDICARE, MEDICAID, SELFPAY ==
[2022-12-13 02:45] VITALS: BP 182/80; PULSE 96; RESP 18; TEMP 36.2; O2SAT 97; BMI 28.9
[2022-12-13 03:40] LABS: Appearance Urine Clear; Color Urine Yellow; Glucose Urine UA Negative (Negative); Leukocyte Esterase Urine Negative (Negative); Nitrite Urine Negative (Negative); PH 5.5 (5.0-9.0); Urine Blood Negative (Negative); Urine Ketones Negative (Negative); Urine Protein Negative (Neg-Trace)
[2022-12-13] MEDS: Lidocaine HCl 2 % Urojet 10 ML JEL.PF.APP TOPICAL (04:01)
--- NOTE | 2022-12-13 04:05 | PC.NURSE ---
Patient reporting he has been unable to urinate since 9:00 pm last night, also c/o pain/discomfort in suprapubic area. 20 Fr coude cath inserted per MD order, balloon inflated with 30 mL of sterile water, 650 mL of dark yellow urine noted in f/C bag after insertion. Patient tolerated procedure well. Provider notified. Patient stating pain resolved after cath insertion.
[2022-12-13 04:07] VITALS: BP 159/52; PULSE 46; RESP 14; TEMP 36.6; O2SAT 97
--- NOTE | 2022-12-13 04:29 | ED_ITS ---
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 Patient reports that he recently had a decrease in his finasteride from daily to 3 times a week. Related Data Home Medications Medication Instructions Recorded Confirmed finasteride 5 mg tablet 5 mg PO .Sat06/22/22 10/31/22 Previous Rx's Medication Instructions Recorded blood sugar diagnostic (FreeStyle #100 ea 06/22/20 Lite Strips) sennosides 8.6 mg tablet (senna) 17.2 mg (2 x 8.6 mg) PO BEDTIME 10/16/21 PRN constipation 30 days #60 tabs cholecalciferol (vitamin D3) 50 50 mcg PO DAILY 90 days #90 caps 05/31/22 mcg (2,000 unit) capsule valsartan 80 mg tablet 80 mg PO DAILY 90 days #90 tabs 06/22/22 Tradjenta 5 mg tablet (linagliptin) 5 mg PO DAILY 90 days #90 tabs 08/19/22 glipizide 2.5 mg tablet, extended 2.5 mg PO DAILY #90 tabs 09/12/22 release 24 hr tamsulosin 0.4 mg capsule 0.8 mg (2 x 0.4 mg) PO DAILY 90 09/13/22 days #180 caps atorvastatin 40 mg tablet 40 mg PO DAILY 90 days #90 tabs 12/08/22 Allergies Allergy/AdvReac Type Severity Reaction Status Date / Time metformin [METFORMIN] AdvReac Mild STOMACH Verified 10/31/22 10:16 UPSET,DIARRHEA Review of Systems Review of Systems: Pertinent positives and negatives as stated in HPI [facility] Past Medical History Source: nursing notes reviewed Medical History Chronic kidney disease, stage III (moderate) Vitamin D deficiency BPH associated with nocturia Chronic constipation Benign prostatic hyperplasia with lower urinary tract symptoms Overweight (BMI 25.0-29.9) Pure hypercholesterolemia Benign essential hypertension Type 2 diabetes mellitus with diabetic chronic kidney disease Surgical History History of colonoscopy History of hemorrhoidectomy History of inguinal hernia repair Family History Family History Father No problems noted. Mother Medical history unknown Social History Social History Household Members: Spouse Housing: Apartment Alcohol intake: never Patient Tobacco Use Status: Never used Tobacco Smoked in Last 30 Days: No e-Cigarette/Vaping Use: Never Used Second Hand Smoke Exposure: Yes Use of substances other than those prescribed or required for medical reasons: No Advance Directives: No Advance Directives Information Provided: Yes service: No Current occupational status: retired Cognitive needs: No Hearing needs: No Vision needs: Yes Physical Exam Vital Signs: Vital Signs: Last Vital Signs Temp 97.9 F 12/13/22 04:07 Pulse 46 L 12/13/22 04:07 Resp 14 12/13/22 04:07 BP 159/52 H 12/13/22 04:07 Pulse Ox 97 12/13/22 04:07 O2 Del Method Room Air 12/13/22 04:07 BMI result Body Mass Index 28.9 VITAL SIGNS: Reviewed. GENERAL: Well developed, well nourished, in no acute distress. HEAD: Normocephalic/atraumatic EYES: PERRLA, EOMI EARS: Ext canals without abnormality NOSE: Nares patent bilateral OROPHARYNX: no oral lesions noted, posterior pharynx clear NECK: Supple, no adenopathy LUNGS: Normal breath sounds. No adventitious sounds or accessory muscle use. SpO2<97> CARDIOVASCULAR: Regular rate and rhythm without noted murmurs ABDOMEN: Soft, non-tender, non-distended with bowel sounds. MUSCULOSKELETAL: No tenderness, deformities, or effusions noted on gross inspection. EXTREMITIES: No cyanosis, clubbing or edema. SKIN: Inspection of the skin reveals no rashes NEUROLOGIC: Alert and oriented x 4. Strength and sensation to light touch were grossly intact x 4. Medications Administered Discontinued Medications Generic Name Dose Route Start Last Admin Trade Name Freq PRN Reason Stop Dose Admin Lidocaine HCl 10 ml 12/13/22 03:12 12/13/22 04:01 Lidocaine Hcl 2 % Urojet 10 Ml Jel.Pf.Walter TOPICAL 12/13/22 03:13 10 ml ONCE ONE Administration Medical Decision Making Medical Decision Making [facility] Narrative: 72-year-old male with history and clinical presentation consistent with acute urinary retention and suspect it may be related to his recent change in finasteride frequency. Bladder scan does demonstrate 456 mL of urine within the bladder, coude Bourgeois catheter was placed with clear yellow urine and on urinalysis there is no evidence of infection or hematuria. Patient was placed in a leg bag and instructed that he will need to keep the Bourgeois catheter until he is re-evaluated by urology. I also informed the patient that he should begin taking the finasteride daily as well. Differential Diagnosis Differential Diagnoses: The differential diagnosis associated with the presentation includes Please see the discussion above Admission/Observation Consideration of admission/observation: Escalation of care including admission/observation considered Please see the discussion above Lab Data [facility] Lab Attestation statement: I reviewed the patient's lab results. Please see the discussion above Labs: Lab Results 12/13/22 Range/Units 03:30 Urine Color Yellow Urine Appearance Clear Urine pH 5.5 (5.0-9.0) Ur Specific [place] 1.010 (1.005-1.025) Urine Protein Negative (Neg-Trace) mg/dL Urine Glucose (UA) Negative (Negative) mg/dL Urine Ketones Negative (Negative) mg/dL Urine Blood Negative (Negative) Urine Nitrite Negative (Negative) Ur Leukocyte Esterase Negative (Negative) External Record Review External record reviewed: Outpatient record, Prior outpatient labs and Prior outpatient radiology Chronic Conditions Patient?s care impacted by: Diabetes and Other CKD, BPH Discharge Plan Discharge Clinical Impression: Acute urinary retention, Difficult Bourgeois catheter placement Patient Disposition: Home, Self-Care Instructions: Urinary Retention in Men (ED), Bourgeois Catheter Placement and Care (ED) Additional Instructions: 1. Reanude todos los medicamentos caseros seg?n lo recetado, lo m?s importante le recomiendo que retome el cronograma anterior para valentino finasterida. 2. Ethan un seguimiento con el consultorio de urolog?a llam?ndolos por la ma?jyoti y programando gabriella rob para gabriella reevaluaci?n. Regrese a la rashaun de emergencias si los s?ntomas empeoran. 1. Resume all home medications as prescribed, most important I recommend that you resume the previous schedule for your finasteride. 2. Follow-up with the urology office by calling them in the morning and setting up an appointment for re-evaluation. Return to the ER for any worsening symptoms. Prescriptions: No Action cholecalciferol (vitamin D3) 50 mcg (2,000 unit) capsule 50 mcg PO DAILY 90 Days Qty: 90 3RF Tradjenta 5 mg tablet 5 mg PO DAILY 90 Days Qty: 90 1RF glipizide 2.5 mg tablet extended release 24hr 2.5 mg PO DAILY Qty: 90 1RF tamsulosin 0.4 mg capsule 0.8 mg PO DAILY 90 Days Qty: 180 1RF atorvastatin 40 mg tablet 40 mg PO DAILY 90 Days Qty: 90 1RF (DME) FreeStyle Lite Strips Strip See Rx Instructions .ROUTE .MEDSUPPLY Qty: 100 12RF Rx Instructions: As directed - test 1 to 2 times a day sennosides [senna] 8.6 mg tablet 17.2 mg PO BEDTIME PRN (Reason: constipation) 30 Days Qty: 60 5RF finasteride 5 mg tablet 5 mg PO .Mon Sat valsartan 80 mg tablet 80 mg PO DAILY 90 Days Qty: 90 3RF Referrals: Jimmy Hurtado MD [Primary Care Provider] - Henrik Ramsey MD [Physician] - Print Language: Swedish
== END 2022-12-13 04:46 | disposition home or self-care (01) ==
PROVIDERS: Emergency Provider Student in an Organized Health Care Education/Training Program; PCP Internal Medicine
DX: R33.9 Retention of urine, unspecified (principal); Z79.899 Other long term (current) drug therapy
CPT/HCPCS: 51702; 51798; 81003; 99284; 99285

== ENCOUNTER 2022-12-14 09:03 | Emergency (ER) | payer MEDICARE, MEDICAID, SELFPAY ==
[2022-12-14 09:07] VITALS: BP 152/81; PULSE 105; RESP 18; TEMP 36.2; O2SAT 98; BMI 28.5
--- NOTE | 2022-12-14 09:19 | ED.MALEGU ---
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 He had a coude Up catheter placed. UA negative for infection. He was sent home with Up and plan to f/u with Urology. He states he was unable to make and appointment yesterday. He reports the Up is uncomfortable and he has had some leaking around it. He also still feels like he has to strain to get the urine out. It is draining appropriately. No blood or sediment. He states his finesteride was decreased to 3 times per week by his Urologist a few months ago because overall his symptoms were better. MD Complaint: other (up discomfort, requesting removal) Onset (ago): day(s) (1) Duration: constant Location: penis Severity: moderate Quality: aching Relieving factors: urination Exacerbating factors: none Context: indwelling catheter Related Data Home Medications Medication Instructions Recorded Confirmed finasteride 5 mg tablet 5 mg PO .Sat06/22/22 10/31/22 Previous Rx's Medication Instructions Recorded blood sugar diagnostic (FreeStyle #100 ea 06/22/20 Lite Strips) sennosides 8.6 mg tablet (senna) 17.2 mg (2 x 8.6 mg) PO BEDTIME 10/16/21 PRN constipation 30 days #60 tabs cholecalciferol (vitamin D3) 50 50 mcg PO DAILY 90 days #90 caps 05/31/22 mcg (2,000 unit) capsule valsartan 80 mg tablet 80 mg PO DAILY 90 days #90 tabs 06/22/22 Tradjenta 5 mg tablet (linagliptin) 5 mg PO DAILY 90 days #90 tabs 08/19/22 glipizide 2.5 mg tablet, extended 2.5 mg PO DAILY #90 tabs 09/12/22 release 24 hr tamsulosin 0.4 mg capsule 0.8 mg (2 x 0.4 mg) PO DAILY 90 07/27/23 days #180 caps atorvastatin 40 mg tablet 40 mg PO DAILY 90 days #90 tabs 12/08/22 Allergies Allergy/AdvReac Type Severity Reaction Status Date / Time metformin [METFORMIN] AdvReac Mild STOMACH Verified 10/31/22 10:16 UPSET,DIARRHEA Review of Systems Review of Systems: Yes all other systems are reviewed and are negative [facility] Past Medical History Medical History Chronic kidney disease, stage III (moderate) Vitamin D deficiency BPH associated with nocturia Chronic constipation Benign prostatic hyperplasia with lower urinary tract symptoms Overweight (BMI 25.0-29.9) Pure hypercholesterolemia Benign essential hypertension Type 2 diabetes mellitus with diabetic chronic kidney disease Surgical History History of colonoscopy History of hemorrhoidectomy History of inguinal hernia repair Family History Family History Father No problems noted. Mother Medical history unknown Social History Social History Household Members: Spouse Housing: Apartment Alcohol intake: never Patient Tobacco Use Status: Never used Tobacco e-Cigarette/Vaping Use: Never Used Second Hand Smoke Exposure: Yes Advance Directives: Yes Advance Directives Information Provided: Yes Advance Directives on File: No service: No Current occupational status: retired Cognitive needs: No Hearing needs: No Vision needs: Yes Physical Exam Vital Signs: Vital Signs: Last Vital Signs Temp 97.2 F 12/14/22 09:07 Pulse 105 H 12/14/22 09:07 Resp 18 12/14/22 09:07 BP 152/81 H 12/14/22 09:07 Pulse Ox 98 12/14/22 09:07 O2 Del Method Room Air 12/14/22 09:07 BMI result Body Mass Index 28.5 Appearance: Alert. Oriented X3. No acute distress. Head: normocephalic, atraumatic. Eyes: Pupils equal, round and reactive to light. ENT: Pharynx normal. No tonsillar swelling or exudate. Neck: Normal inspection. Neck supple. CVS: Normal heart rate and rhythm. Pulses normal. Respiratory: No respiratory distress. Breath sounds normal. Abdomen: Soft and nontender. +BS x4 no suprapubic tenderness : normal inspection of the penis and scrotum. up in place without any leaking, no blood at urethral meatus. clear yellow urine in the leg bag Skin: Skin warm and dry. Normal skin color. Normal skin turgor. No rashes. Extremities: No lower extremity edema. No joint swelling. Neuro/psych: Oriented X 3. No motor deficit. No sensory deficit. CN II-XII intact. Normal speech and cognition. Medical Decision Making Medical Decision Making [facility] Narrative: 72-year-old male presents to the ER for Up removal. He was seen here earlier yesterday for urinary retention and had a coude catheter placed. He states he has had catheters placed temporarily several times. He follows with Dr. Ramsey. He wants the Up out as it is uncomfortable and leaking. 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 He was given return precautions and told to come back to the ER if he is having difficulty urinating or any other issues. Patient does not want wait in the ER to see if he can void. Up catheter was successfully removed. He was able to void a small amount of blood tinged urine wants the catheter was out. stable for discharge home Differential Diagnosis Differential Diagnoses: The differential diagnosis associated with the presentation includes urinary retention 2/2 BPH, medication noncompliance. prostate cancer, bladder outlet obstruction, obstructive uropathy Consult Healthcare Provider Management of the patient was discussed with: Cashier Credit Dr. Ramsey ok w/ removal and increasing finesteride External Record Review External record reviewed: Outpatient record and Prior outpatient labs Chronic Conditions Patient?s care impacted by: Hypertension and Other (BPH) Critical Care Time Critical Care Time Critical Care Time: No Discharge Plan Discharge Clinical Impression: Benign prostatic hyperplasia with lower urinary tract symptoms Qualifiers: Lower urinary tract symptom detail: urinary retention Qualified Code(s): N40.1 - Benign prostatic hyperplasia with lower urinary tract symptoms; R33.8 - Other retention of urine Patient Disposition: Home, Self-Care Instructions: Enlarged Prostate (BPH) (ED) Additional Instructions: Resume your finesteride DAILY Follow up with Urology If you develop new or worsening symptoms call 911 or come back to the ER for further evaluation. Prescriptions: No Action cholecalciferol (vitamin D3) 50 mcg (2,000 unit) capsule 50 mcg PO DAILY 90 Days Qty: 90 3RF Tradjenta 5 mg tablet 5 mg PO DAILY 90 Days Qty: 90 1RF glipizide 2.5 mg tablet extended release 24hr 2.5 mg PO DAILY Qty: 90 1RF tamsulosin 0.4 mg capsule 0.8 mg PO DAILY 90 Days Qty: 180 1RF atorvastatin 40 mg tablet 40 mg PO DAILY 90 Days Qty: 90 1RF (DME) FreeStyle Lite Strips Strip See Rx Instructions .ROUTE .MEDSUPPLY Qty: 100 12RF Rx Instructions: As directed - test 1 to 2 times a day sennosides [senna] 8.6 mg tablet 17.2 mg PO BEDTIME PRN (Reason: constipation) 30 Days Qty: 60 5RF finasteride 5 mg tablet 5 mg PO .Mon Wed Sat valsartan 80 mg tablet 80 mg PO DAILY 90 Days Qty: 90 3RF Referrals: Jimmy Hurtado MD [Primary Care Provider] - Henrik Ramsey MD [Physician] - Interventions: ED Discharge Assessment Last Done: 12/14/22 10:30 Discharge Date/Time: 12/14/22 10:30 Print Language: Polish
== END 2022-12-14 10:30 | disposition home or self-care (01) ==
PROVIDERS: Emergency Provider Emergency Medicine Emergency Medical Services; PCP Internal Medicine
DX: Z46.6 Encounter for fitting and adjustment of urinary device (principal); N40.1 Benign prostatic hyperplasia with lower urinary tract symptoms; R33.8 Other retention of urine
CPT/HCPCS: 99283

== ENCOUNTER 2023-01-01 08:20 | Outpatient (REF) | payer MEDICARE, MEDICAID, SELFPAY ==
[2023-01-01 09:53] LABS: Prostate Specific Antigen 1.91 ng/mL (<0.05-4.0)
== END 2023-01-01 08:21 | disposition home or self-care (01) ==
LOC: HO.LAB 08:20
PROVIDERS: PCP Internal Medicine; Visit Provider Urology
DX: Z12.5 Encounter for screening for malignant neoplasm of prostate (principal); N40.1 Benign prostatic hyperplasia with lower urinary tract symptoms; R35.1 Nocturia
CPT/HCPCS: 36415; 84153

== ENCOUNTER 2023-01-15 09:20 | Outpatient (AMB) | payer MEDICARE, MEDICAID, SELFPAY ==
--- NOTE | 2023-01-15 09:25 | MHC.OFFVIS ---
Intake Intake Visit Reasons: 1Y PSA(set) Intake Note: Patient is Present for Follow Up PSA Urology Medication: Finasteride, Tamsulosin Antibiotic Allergies: None Blood Thinners: none PVR: 0 Allergies metformin [METFORMIN] Adverse Reaction (Mild, Verified 01/15/23 09:29) STOMACH UPSET,DIARRHEA Medication List - Last Reconciled 01/15/23 by Henrik Ramsey MD atorvastatin 40 mg PO DAILY 90 days blood sugar diagnostic (FreeStyle Lite Strips) As directed - test 1 to 2 times a day cholecalciferol (vitamin D3) 50 mcg PO DAILY 90 days finasteride 5 mg PO .Sat 90 days glipizide ER 2.5 mg PO DAILY sennosides (senna) 17.2 mg (2 x 8.6 mg) PO BEDTIME PRN 30 days tamsulosin 0.8 mg (2 x 0.4 mg) PO DAILY 90 days Tradjenta (linagliptin) 5 mg PO DAILY 90 days NS valsartan 80 mg PO DAILY 90 days HPI HPI Comments History of Present Illness Details Nasir is a pleasant male. He is seen for the following urologic conditions - BPH - urinary retention Yi translation provided by qualified medical records assistant Good response to finasteride PSA remains suppressed Happy with urination - PVR 0 cc Good stream and minimal nocturia Lower urinary tract symptoms Previously seen and had been treated with tamsulosin for trilobar hypertrophy Offered prostate procedure in the past Current medication includes combination finasteride and tamsulosin 0.8 mg PSA 01/08 5.6, 07/09 2.9, 01/09 1.9, 01/10 1.9 Review in 6 months [facility] Medical History Chronic kidney disease, stage III (moderate) Vitamin D deficiency BPH associated with nocturia Chronic constipation Benign prostatic hyperplasia with lower urinary tract symptoms Overweight (BMI 25.0-29.9) Pure hypercholesterolemia Benign essential hypertension Type 2 diabetes mellitus with diabetic chronic kidney disease Surgical History History of colonoscopy History of hemorrhoidectomy History of inguinal hernia repair Family History Father No problems noted. Mother Medical history unknown Household Members: Spouse Housing: Apartment Alcohol intake: never Patient Tobacco Use Status: Never used Tobacco e-Cigarette/Vaping Use: Never Used Second Hand Smoke Exposure: Yes service: No Current occupational status: retired Cognitive needs: No Hearing needs: No Vision needs: Yes Review of Systems Const Denies chills and Denies fever(s) Card Reports no additional complaints and Denies syncope Resp Denies cough GI Denies abdominal pain and Denies heartburn Reports as per HPI and Denies change in libido Neuro Denies syncope Psych Denies change in libido Endo Denies change in libido Physical Exam Const General: cooperative, healthy appearing, comfortable and no acute distress Orientation/consciousness: patient oriented x3 HEENT Face and sinus: Yes normal facial exam Mouth: moist mucous membranes Neck Neck: Yes normal visual inspection, Yes full ROM and Yes trachea midline Chest Chest palpation & inspection: normal inspection of the chest Resp Effort & Inspection: normal respiratory effort, able to speak in complete sentences and no respiratory distress GI Inspection: Yes normal to inspection Rectal Exam - Male: Yes normal sphincter tone and Yes prostate normal Male General Exam: Yes normal external exam Penis: normal penis and circumcised Meatus: meatus normal Scrotum: scrotum normal Testes: Testes normal Back/Spine/Pelvis Cervical Spine: normal cervical lordosis Thoracic/Lumbar Spine: thoracic and lumbar spine normal to inspection Skin General skin exam: no rashes or lesions noted Neuro General: patient oriented x3, gait normal, tone normal and moves all extremities Extrem General: Yes normal to inspection and Yes capillary refill normal Office Procedures Post Void Residual Post Residual Void Post Void Residual (PVR): 0 [id number]-[id number] Void Residual by ultrasound Results AMB Urinalysis, Automated UA Leukoctes 0 Chai/uL Last Edit by SINA Garsia on 01/15/23 09:37 UA Nitrite Negative Last Edit by SINA Garsia on 01/15/23 09:37 UA Urobilinogen 0.2 mg/dL Last Edit by SINA Garsia on 01/15/23 09:37 UA Protein 15 mg/dL Last Edit by SINA Garsia on 01/15/23 09:37 UA pH 5.0 Last Edit by Marta Ham RMA on 01/15/23 09:37 UA Blood 0 David/uL Last Edit by Martahaydee Ham, RMA on 01/15/23 09:37 UA Specific [place] 1.025 Last Edit by Marta Ham, RMA on 01/15/23 09:37 UA Ketone Negative Last Edit by Marta Ham, RMA on 01/15/23 09:37 UA Bilirubin 0 mg/dL Last Edit by Marta Ham RMA on 01/15/23 09:37 UA Glucose 0 mg/dL Last Edit by Marta Ham, RMA on 01/15/23 09:37 Results Reviewed Results Reviewed: Laboratory Last Values Urine pH (Auto) 5.0 01/15/23 09:30 Specific [place] (Auto) 1.025 01/15/23 09:30 Urine Protein (Auto) 15 mg/dL 01/15/23 09:30 Glucose (UA)(Auto) 0 mg/dL 01/15/23 09:30 Urine Ketones (Auto) Negative 01/15/23 09:30 Urine Blood (Auto) 0 David/uL 01/15/23 09:30 Urine Nitrite (Auto) Negative 01/15/23 09:30 Urine Bilirubin (Auto) 0 mg/dL 01/15/23 09:30 Urine Urobilinogen (Auto) 0.2 mg/dL 01/15/23 09:30 Leukocyte Esterase (Auto) 0 Chai/uL 01/15/23 09:30 Assessment & Plan Assessment & Plan (1) Elevated PSA: Code(s): R97.20 - Elevated prostate specific antigen [PSA] (2) BPH associated with nocturia: Code(s): N40.1 - Benign prostatic hyperplasia with lower urinary tract symptoms; R35.1 - Nocturia Plan Total follow-up lab Orders: Orders AMB Post Void Residual by ultrasound Today N40.1 - Benign prostatic hyperplasia with lower urinary tract symptoms, R33.8 - Other retention of urine Prostate Specific Antigen 364 Days R97.20 - Elevated prostate specific antigen [PSA] AMB Urinalysis Automated Today Z13.9 - Encounter for screening, unspecified Patient Instructions: Imaging studies, laboratory and physical exam results were discussed and reviewed in detail. No major barriers to patient understanding were identified. An opportunity to ask questions regarding the treatment plan was provided. All questions were answered. The patient expressed understanding and agreement with the above treatment plan. The patient is aware they should contact our office by phone for worsening of their current condition or the appearance of new urologic symptoms. Compliance is encouraged with any medications and followup testing that is ordered. It is a privilege to participate in the urologic care of your patient. If you have any questions or concerns regarding treatment for the above conditions, or other urologic issues, please do not hesitate to contact me. The office telephone contact is [phone]. This note is constructed using voice recognition software. While every effort has been made to ensure accuracy tennis ball cover cementer errors may have been included. Yours sincerely, Dr Henrik Ramsey MD, [facility] - Urology Providers of Expert, Compassionate Care for the Genitourinary System Coding Level of Care Code Est Pt Level 4 (73100) Diagnoses Elevated PSA R97.20 BPH associated with nocturia N40.1; R35.1 CPT Codes Post Residual Void - PVR CPT Code: 49475-[id number] Void Residual by ultrasound ([id number])
== END 2023-01-15 09:55 | disposition home or self-care (01) ==
PROVIDERS: Visit Provider Urology
DX: R97.20 Elevated prostate specific antigen [PSA] (principal); N40.1 Benign prostatic hyperplasia with lower urinary tract symptoms; R35.1 Nocturia; Z13.9 Encounter for screening, unspecified
CPT/HCPCS: 99213

== ENCOUNTER → 2023-01-15 09:20 | Outpatient (BNVA) | payer MEDICARE, MEDICAID, SELFPAY | PROVIDERS: Visit Provider Urology | DX: N40.1 Benign prostatic hyperplasia with lower urinary tract symptoms (principal); R35.1 Nocturia; R97.20 Elevated prostate specific antigen [PSA] | CPT/HCPCS: 51798; 81003; 99212 ==

== ENCOUNTER 2023-02-25 07:58 | Outpatient (REF) | payer MEDICARE, MEDICAID, SELFPAY | END 2023-02-25 07:59 | disposition home or self-care (01) | LOC: HO.LAB 07:58 | PROVIDERS: PCP Internal Medicine; Visit Provider Internal Medicine | DX: I10 Essential (primary) hypertension (principal); E11.9 Type 2 diabetes mellitus without complications; R30.0 Dysuria; E78.00 Pure hypercholesterolemia, unspecified; E55.9 Vitamin D deficiency, unspecified | CPT/HCPCS: 36415; 80053; 80061; 81003; 82043; 82306; 82570; 83036; 84443; 85025 ==

== ENCOUNTER 2023-03-07 09:34 | Outpatient (AMB) | payer MEDICARE, MEDICAID, SELFPAY ==
--- NOTE | 2023-03-07 09:59 | A.OFFPC_ITS ---
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 Accompanied by: Self / Same As Patient Allergies metformin [METFORMIN] Adverse Reaction (Mild, Verified 03/07/23 10:29) STOMACH UPSET,DIARRHEA Medication List - Last Reconciled 03/07/23 by Jimmy Hurtado MD atorvastatin 40 mg PO DAILY 90 days blood sugar diagnostic (FreeStyle Lite Strips) As directed - test 1 to 2 times a day cholecalciferol (vitamin D3) 50 mcg PO DAILY 90 days finasteride 5 mg PO .Sat 90 days glipizide ER 2.5 mg PO DAILY sennosides (senna) 17.2 mg (2 x 8.6 mg) PO BEDTIME PRN 30 days tamsulosin 0.8 mg (2 x 0.4 mg) PO DAILY 90 days Tradjenta (linagliptin) 5 mg PO DAILY 90 days NS valsartan 80 mg PO DAILY 90 days Tobacco use date assessed: 03/07/23 Fall risk assessment: No Falls in past year Last assessed Fall Risk: 03/07/23 Dental Screening Dental Screen Date: 03/07/23 Did you have a dental visit in the last 12 months?: No Did you have a dental problem in the last 6 months where you did not have access to dental care?: Yes Was dental information given to patient?: Yes HPI hyperlipidemia, DM, CKD, HTN HPI Details Patient comes in today for his follow up visit States that he has been having problems sleeping at night for years and feels that this has gotten worse lately Recalls that his working hours used to change frequently and this may have started his issues with sleeping, which have not improved since he retired a few years ago Has never taken any Rx to help him sleep in the past He denies any headaches or dizziness Denies any chest pains, no SOB No nausea/vomiting, no abdominal pain No change in bowel habits noted Had his follow up labs done last week - to discuss his results [facility] Medical History (Updated 03/08/23 @ 06:06 by Jimmy Hurtado MD) Insomnia Chronic kidney disease, stage III (moderate) Vitamin D deficiency BPH associated with nocturia Chronic constipation Benign prostatic hyperplasia with lower urinary tract symptoms Overweight (BMI 25.0-29.9) Pure hypercholesterolemia Benign essential hypertension Type 2 diabetes mellitus with diabetic chronic kidney disease Surgical History History of colonoscopy History of hemorrhoidectomy History of inguinal hernia repair Family History Father No problems noted. Mother Medical history unknown Social History Household Members: Spouse Housing: Apartment Alcohol intake: never Patient Tobacco Use Status: Never used Tobacco e-Cigarette/Vaping Use: Never Used Second Hand Smoke Exposure: Yes service: No Current occupational status: retired Cognitive needs: No Hearing needs: No Vision needs: Yes Questionnaire PHQ-9 Over the last 2 weeks, how often have you been bothered by any of the following problems? 1. Little interest or pleasure in doing things: not at all 2. Feeling down, depressed, or hopeless: not at all 3. Trouble falling or staying asleep, or sleeping too much: not at all 4. Feeling tired or having little energy: not at all 5. Poor appetite or overeating: not at all 6. Feeling bad about yourself - or that you are a failure or have let yourself or your family down: not at all 7. Trouble concentrating on things, such as reading the newspaper or watching television: not at all 8. Moving or speaking so slowly that other people could have noticed. Or the opposite - being so fidgety or restless that you have been moving around a lot more than usual: not at all 9. Thoughts that you would be better off or of hurting yourself in some way: not at all Total score: 0 Depression Screening Interpretation: Negative Depression Screening Done: Yes 31109 - PHQ-9 Billing: Yes Source: Developed by Drs. Vasile Wren, Bette Chen, Jeremiah Leija and colleagues, with an educational danis from [employer] Thrive Questionnaire Date Thrive assessed: 03/07/23 I am a: Patient Within the past 12 months, did the food you bought not last and you didn't have the money to get more?: Never true Within the past 12 months, did you worry whether your food would run out before you got money to buy more?: Never true Do you have trouble paying for medicines?: No Do you have trouble getting transportation to medical appointments?: No Do you have trouble paying your heating and electricity bill?: No Do you have trouble taking care of your child, family member or friend?: No Do you have trouble with day-to-day activities such as bathing, preparing meals, shopping, managing finances, etc.?: No Are you currently unemployed and looking for a job?: No Are you interested in more education?: No Please select the resources that you would like help with: None Currently or been in a relationship where the following occur: no concerns r eported AUDIT C Alcohol Use Questionnaire (AUDIT-C) 1. How often do you have a drink containing alcohol?: Never 3. How often do you have six or more drinks on one occasion?: Never Total Score: 0 Score Reviewed/Action Taken: Yes DILLON-7 AMB Questionnaire DILLON-7 Date DILLON - 7 assessed: 03/07/23 Feeling nervous, anxious, or on edge: 0 = Not at all Not being able to stop or control worryin = Not at all Worrying too much about different things: 0 = Not at all Trouble relaxin = Not at all Being so restless that it is hard to sit still: 0 = Not at all Becoming easily annoyed or irritable: 0 = Not at all Feeling afraid as if something awful might happen: 0 = Not at all Total DILLON-7 score (0-4 normal; 5-9 mild; 10-14 moderate; 15-21 severe): 0 Source: Developed by Drs. Vasile Wren, Bette Chen, Jeremiah Leija and colleagues, with an educational danis from [employer] DILLON-7 Assessment Billing DILLON-7 Assessment Tool: DILLON-7 Assessment 53691 Review of Systems Const Denies chills, Reports difficulty sleeping (increasing), Reports fatigue, Denies fever(s) and Denies headache(s) ENT Denies dysphagia, Denies dizziness, Denies otalgia, Denies headache(s), Denies odynophagia and Denies sore throat Card Denies chest pain, Denies palpitations and Denies dyspnea Resp Denies cough and Denies dyspnea GI Denies abdominal pain, Denies constipation, Denies dysphagia, Denies heartburn, Denies diarrhea, Denies nausea, Denies odynophagia and Denies vomiting Denies hematuria, Reports difficulty urinating (at times - Rx helps), Denies dysuria, Denies nocturia and Denies urinary frequency Musc Denies arthralgias and Reports joint swelling (occasionally, over his knees) Skin/Breast Denies rash Neuro Denies dizziness and Denies headache(s) Endo Reports fatigue and Denies palpitations Physical exam (Primary Care) Vital Signs: Last Vital Signs Pulse 40 L 03/07/23 10:00 BP 180/100 H 03/07/23 10:40 Pulse Ox 100 03/07/23 10:00 Oxygen Delivery Method Room Air 03/07/23 10:00 BMI result Body Mass Index 27.6 Tobacco/Smoking Status: Tobacco use Status Tobacco use date assessed 03/07/23 03/07/23 10:05 Patient Tobacco Use Status Never used Tobacco 03/07/23 10:03 e-Cigarette/Vaping Use Never Used 03/07/23 10:03 PHQ-9: PHQ-9 Score PHQ-9: Total score 0 03/07/23 10:30 Depression Screening Interpretation: Negative Thrive Assessment: Date of Thrive Assessment Date Thrive assessed 03/07/23 03/07/23 10:05 Currently or been in a relationship where the following occur: no concerns reported Const General: no acute distress and alert HENMT Ears: TM's normal bilaterally and EAC's normal Throat: Yes posterior oropharynx normal and Yes tonsils normal (no TP congestion noted) Neck Neck: Yes no lymphadenopathy and Yes supple Resp Auscultation: clear to auscultation bilaterally, no rales and no wheezes Cardio Rate: regular rate Rhythm: abnormal rhythm with ectopic beats Heart sounds: no murmurs GI Palpation (GI): Soft to palpation and nontender Auscultation: normal bowel sounds Skin Rashes: no rashes Extrem General: Yes no clubbing, cyanosis or edema Results Reviewed Results Reviewed: Laboratory Tests 02/25/23 02/25/23 02/25/23 08:19 08:19 08:20 WBC 7.9 Hgb 12.7 L Hct 39.9 L Plt Count 178 Sodium 142 Potassium 4.3 Creatinine 1.22 Estimated GFR 58 Fasting Glucose 99 Hemoglobin A1c % 6.8 H Calcium 9.6 AST 14 ALT 10 Triglycerides 84 Cholesterol 147 LDL Cholesterol, Calc 73 HDL Cholesterol 58 25-OH Vitamin D Total 44.0 TSH 1.04 Ur Specific [place] Urine Protein Urine Glucose (UA) Negative Urine Blood Urine Nitrite Ur Leukocyte Esterase Microalb/Creat Ratio 02/25/23 08:20 WBC Hgb Hct Plt Count Sodium Potassium Creatinine Estimated GFR Fasting Glucose Hemoglobin A1c % Calcium AST ALT Triglycerides Cholesterol LDL Cholesterol, Calc HDL Cholesterol 25-OH Vitamin D Total TSH Ur Specific [place] 1.020 Urine Protein Negative Urine Glucose (UA) Urine Blood Negative Urine Nitrite Negative Ur Leukocyte Esterase Negative Microalb/Creat Ratio 3.3 Assessment and Plan Assessment & Plan (1) Pure hypercholesterolemia: Code(s): E78.00 - Pure hypercholesterolemia, unspecified Plan: Results of his labs done last week reviewed and discussed with patient Reinforced low cholesterol diet Continue Atorvastatin 40 mg QD Will recheck his labs and fasting lipids in 4 months for follow up (2) Type 2 diabetes mellitus with diabetic chronic kidney disease: Code(s): E11.22 - Type 2 diabetes mellitus with diabetic chronic kidney disease Qualifiers: Chronic kidney disease stage: stage 2 (mild) 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: without buttermilk drier operator use Qualified Code(s): E11.22 - Type 2 diabetes mellitus with diabetic chronic kidney disease; N18.2 - Chronic kidney disease, stage 2 (mild) Plan: HgbA1c is at 6.8% on his labs done last week (was at 6.7% a few months ago) - goal is <7.0% Reinforced diabetic diet Continue Tradjenta 5 mg QD and Glipizide XL 2.5 mg QD (3) Chronic kidney disease, stage III (moderate): Code(s): N18.30 - Chronic kidney disease, stage 3 unspecified Qualifiers: Chronic kidney disease stage 3 subtype: stage 3a (GFR 45-59) Qualified Code(s): N18.31 - Chronic kidney disease, stage 3a Plan: His renal function appears stable on his labs done last week Reinforced strict control of his diabetes and blood pressure to slow down the decline in his renal function Will continue to monitor his renal function and GFR closely (4) Ectopic beats: Code(s): I49.49 - Other premature depolarization Plan: Patient is currently presenting again with bradycardia although auscultation of his heart revealed (+) ectopic beats, possibly in bigeminy His previous EKG suggested the presence of LBBB ? Will send patient for repeat EKG and also an echocardiogram JAKE for further evaluation, especially in light of his recent persistently elevated BP readings (5) Benign essential hypertension: Code(s): I10 - Essential (primary) hypertension Plan: Reinforced low sodium diet - goal is systolic BP of at least 130 mm or less, given his recently declining renal function Continue Valsartan 80 mg QD for now although blood pressure is currently staying elevated persistently Will address this again after he has his echocardiogram done for further evaluation (6) Elevated LFTs: Code(s): R79.89 - Other specified abnormal findings of blood chemistry Plan: Resolved - were most likely related to his weight Patient denies any abdominal pain/symptoms and states that he does NOT drink alcohol Will recheck his LFTs again in 4 months for follow up (7) Vitamin D deficiency: Code(s): E55.9 - Vitamin D deficiency, unspecified Plan: Continue Vitamin D3 2000 units QD (8) Anemia: Code(s): D64.9 - Anemia, unspecified Qualifiers: Anemia type: unspecified type Qualified Code(s): D64.9 - Anemia, unspecified Plan: Improved; serum iron levels were normal on his recent labs Colonoscopy done a few years ago in 03/2019 came out normal Will continue to monitor his CBC regularly (9) Constipation: Code(s): K59.00 - Constipation, unspecified Qualifiers: Constipation type: unspecified constipation type Qualified Code(s): K59.00 - Constipation, unspecified Plan: Improved; continue Senna 8.6 mg 1 to 2 tablets QD PRN Reinforced increased oral fluids and dietary fiber (10) Benign prostatic hyperplasia with lower urinary tract symptoms: Code(s): N40.1 - Benign prostatic hyperplasia with lower urinary tract symptoms Qualifiers: Lower urinary tract symptom detail: urinary retention Qualified Code(s): N40.1 - Benign prostatic hyperplasia with lower urinary tract symptoms; R33.8 - Other retention of urine Plan: Continue Tamsulosin 0.8 mg Q HS and Finasteride 5 mg TIW (dose was recently lowered by urology) Follow up with urology as scheduled? (11) Insomnia: Code(s): G47.00 - Insomnia, unspecified Qualifiers: Insomnia type: unspecified Qualified Code(s): G47.00 - Insomnia, unspecified Plan: Sleep hygiene discussed Will start him on Trazodone 50 mg Q HS PRN (12) Overweight (BMI 25.0-29.9): Code(s): E66.3 - Overweight Plan: Reinforced diet/exercise as tolerated/lose weight Plan Follow up in 1 month Orders: Orders ECG 12 lead EKG 03/07/23 I49.49 - Other premature depolarization CA echo transthoracic complete 03/07/23 I49.49 - Other premature depolarization Medications: New 2 trazodone 50 mg PO BEDTIME 30 days PRN 30 tabs 2RF sleep Coding Level of Care Code Est Pt Level 4 (90905) Diagnoses Pure hypercholesterolemia E78.00 Type 2 diabetes mellitus with stage 2 chronic kidney disease, without long-term current use of insulin E11.22; N18.2 Chronic kidney disease stage: stage 2 (mild) 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: without senior living use Stage 3a chronic kidney disease N18.31 Chronic kidney disease stage 3 subtype: stage 3a (GFR 45-59) Ectopic beats I49.49 Benign essential hypertension I10 Elevated LFTs R79.89 Vitamin D deficiency E55.9 Anemia, unspecified type D64.9 Anemia type: unspecified type Constipation, unspecified constipation type K59.00 Constipation type: unspecified constipation type Benign prostatic hyperplasia with urinary retention N40.1; R33.8 Lower urinary tract symptom detail: urinary retention Insomnia, unspecified type G47.00 Insomnia type: unspecified Overweight (BMI 25.0-29.9) E66.3 Additional Codes DILOLN-7 Assessment Billing - DILLON-7 Assessment Tool: DILLON-7 Assessment 61642 ([id number])
[2023-03-07 10:00] VITALS: BP 180/70; PULSE 40; O2SAT 100; BMI 27.6
[2023-03-07 10:40] VITALS: BP 180/100
== END 2023-03-07 10:48 | disposition home or self-care (01) ==
PROVIDERS: PCP Internal Medicine; Visit Provider Internal Medicine
DX: E78.00 Pure hypercholesterolemia, unspecified (principal); E11.22 Type 2 diabetes mellitus with diabetic chronic kidney disease; N18.2 Chronic kidney disease, stage 2 (mild); N18.31 Chronic kidney disease, stage 3a; I49.49 Other premature depolarization; I12.9 Hypertensive chronic kidney disease with stage 1 through stage 4 chronic kidney disease, or unspecified chronic kidney disease; R79.89 Other specified abnormal findings of blood chemistry; E55.9 Vitamin D deficiency, unspecified; D64.9 Anemia, unspecified; K59.00 Constipation, unspecified; N40.1 Benign prostatic hyperplasia with lower urinary tract symptoms; R33.8 Other retention of urine; G47.00 Insomnia, unspecified; E66.3 Overweight
CPT/HCPCS: 99214

== ENCOUNTER → 2023-03-29 07:39 | Outpatient (REF) | payer MEDICARE, MEDICAID, SELFPAY ==
--- NOTE | 2023-03-29 07:50 | ECG_ITS ---
Test Reason : i49.49 Blood Pressure : / mmHG Vent. Rate : 074 BPM Atrial Rate : 074 BPM P-R Int : 168 ms QRS Dur : 142 ms QT Int : 408 ms P-R-T Axes : 063 -25 087 degrees QTc Int : 452 ms Sinus rhythm with occasional Premature ventricular complexes Non-specific intra-ventricular conduction block Abnormal ECG When compared with ECG of 17-JAN-2005 10:02, Premature ventricular complexes are now Present Referred By: Jimmy Hurtado Electronically Signed By:MAGI FOSTER
--- NOTE | 2023-03-29 07:50 | CA_ITS ---
Transthoracic Echocardiogram Patient (Last, First, Middle): Nasir Avila C Gender: Male Date of : 1950 Age: 73 Procedure Date: 03/29/2023 Procedure Type: Transthoracic Echocardiogram Location: OP Height: 172. 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 The calculated ejection fraction is 57% by biplane method. - No obvious valvular pathology seen on this study. Findings Left Ventricle Normal left ventricular cavity size. There is mildly increased left ventricular wall thickness. The left ventricular systolic function is normal. The calculated ejection fraction is 57% by biplane method. There is no evidence of regional wall motion abnormalities. Diastolic function is normal for age. LV peak GLS -14%; suspect under-estimation. Right Ventricle Normal right ventricular cavity size and systolic function. Atria Both atria are normal in size. Aortic Valve There is a normal trileaflet aortic valve. There is no aortic valve stenosis. There is no aortic valve regurgitation. Mitral Valve The mitral valve appears normal. There is trace mitral valve regurgitation. There is no mitral valve stenosis. Pulmonic Valve The pulmonic valve is likely normal. Tricuspid Valve Normal tricuspid valve structure. There is trace tricuspid valve regurgitation. There is no evidence of pulmonary hypertension. Great Vessels The asc aorta is normal in size. Venous The inferior vena cava is normal in size and collapses greater than 50% with inspiration. Pericardium/Pleural There is no evidence of pericardial effusion. Prior Study Comparison No prior study available for comparison. Recommendations, Care & Conclusions No obvious valvular pathology seen on this study. Measurements 2D Linear Measurements IVSd: 1.16 0.6-0.9/0.6-1.0 cm LVIDd: 4.09 3.9-5.3/4.2-5.9 cm LVIDd Index: 2.10 2.4-3.2/2.2-3.1 cm/m2 LVIDs: 2.43 2.0-3.6 cm LVPWd: 1.04 0.7-1.1 cm LA Diam: 3.90 2.7-3.8/3.0-4.0 cm LAIDs Index: 2.00 1.5-2.3 cm/m2 LV Mass: 187.66 67-162/88-224 g LV Mass Index: 96.23 43-95/49-115 g/m2 LVOT Diam: 2.00 3.0+(-)1.3 cm 2D Systolic Function EF 4C: 55.40 >55% EF 2C: 58.70 >55% EF BiP: 57.10 >55% Mitral Valve MV Pk E: 0.63 MV PK A: 0.79 MV Decel Time: 189.00 E/A: 0.80 E'Lateral: 9.25 E'Medial: 7.29 E/E' Med: 8.60 E/E' Lat: 6.80 PHT: 55.00 MVA PHT: 4.00 Decel [place]: 3.31 Aortic Valve AoV Pk Emir: 1.00 AoV Mn Emir: 0.77 AoV VTI: 0.26 AoV Pk Grad: 4.00 Aov Mn Grad: 2.00 HARPER Cont.VTI: 2.65 LVOT LVOT Pk Emir: 0.87 LVOT Mn Emir: 0.67 LVOT VTI: 0.22 LVOT Pk Grad: 3.00 LVOT Mn Grad: 2.00 LVOT Diam: 2.00 LVOT Area: 3.14 Diastolic Function MV Pk E: 0.63 MV Pk A: 0.79 E/A: 0.80 E'Medial: 7.29 E/E' Med: 8.60 E' Laterial: 9.25 E/E' Lat: 6.80 Right Ventricle TAPSE (mm): 23.90 TVS' Emir: 13.30 Tricuspid Valve TR Pk Emir: 1.99 TR Pk Grad: 16.00 RA Press: 3.00 RVSP: 19.00 Great Vessels Aorta Sinus of Valsalva: 3.40 2.0-3.5 cm Ao Asc: 3.30 2.1-3.4 cm Pulmonary Valve PV Pk Emir: 1.22 Peak PV Grad: 6.00 Updated in Other Vendor System with Status of Final Nate Calixto MD electronically signed on 03/30/2023 11:12:26 AM with status of Final
== END ==
LOC: HO.CARD 07:39
PROVIDERS: PCP Internal Medicine; Visit Provider Internal Medicine
DX: I49.49 Other premature depolarization (principal)
CPT/HCPCS: 93005; 93306; 93356

== ENCOUNTER → 2023-03-29 07:50 | Outpatient (BNV) | payer MEDICARE, MEDICAID, SELFPAY | PROVIDERS: PCP Internal Medicine; Visit Provider Internal Medicine | DX: I49.3 Ventricular premature depolarization (principal) | CPT/HCPCS: 93010; 93306 ==

== ENCOUNTER 2023-04-22 16:33 | Outpatient (AMB) | payer MEDICARE, MEDICAID, SELFPAY ==
[2023-04-22 16:36] VITALS: BP 148/80; PULSE 72; O2SAT 100; BMI 27.4
--- NOTE | 2023-04-22 16:36 | A.OFFPC_ITS ---
Vital Signs 04/22/23 16:36 Height 5 ft 8 in Weight 180 lb 0.6 oz BMI 27.4 BP 148/80 H Blood Pressure Location Lt brachial Position Sitting Pulse 72 Pulse Source Pulse Oximeter Pulse Oximetry (%) 100 Oxygen Delivery Method Room Air Intake Visit Reasons: 1 Month F/U Intake Note: Patient is here to follow up on 1 month Assistant To The Vice President Required: No Allergies metformin [METFORMIN] Adverse Reaction (Mild, Verified 04/23/23 00:24) STOMACH UPSET,DIARRHEA Medication List - Last Reconciled 04/23/23 by Jimmy Hurtado MD atorvastatin 40 mg PO DAILY 90 days blood sugar diagnostic (FreeStyle Lite Strips) As directed - test 1 to 2 times a day cholecalciferol (vitamin D3) 50 mcg PO DAILY 90 days finasteride 5 mg PO .Sat 90 days glipizide ER 2.5 mg PO DAILY sennosides (senna) 17.2 mg (2 x 8.6 mg) PO BEDTIME PRN 30 days tamsulosin 0.8 mg (2 x 0.4 mg) PO DAILY 90 days Tradjenta (linagliptin) 5 mg PO DAILY 90 days NS trazodone 50 mg PO BEDTIME PRN 30 days valsartan 80 mg PO DAILY 90 days Tobacco use date assessed: 04/22/23 Fall risk assessment: No Falls in past year Last assessed Fall Risk: 04/22/23 Dental Screening Dental Screen Date: 04/22/23 Did you have a dental visit in the last 12 months?: Yes Did you have a dental problem in the last 6 months where you did not have access to dental care?: No Was dental information given to patient?: Patient has dentist HPI 1 Month F/U HPI Details Patient comes in today for his follow-up visit following his recent cardiac testing/evaluation He was sent for an EKG and echocardiogram after his last visit a couple of months ago when examination revealed (+) bradycardia and arrhythmia States that he currently feels okay He denies any headaches or dizziness Denies any chest pains, no shortness of breath No nausea/ vomiting, no abdominal pain No change in bowel habits noted PFSH Medical History Insomnia Chronic kidney disease, stage III (moderate) Vitamin D deficiency BPH associated with nocturia Chronic constipation Benign prostatic hyperplasia with lower urinary tract symptoms Overweight (BMI 25.0-29.9) Pure hypercholesterolemia Benign essential hypertension Type 2 diabetes mellitus with diabetic chronic kidney disease Surgical History History of colonoscopy History of hemorrhoidectomy History of inguinal hernia repair Family History Father No problems noted. Mother Medical history unknown Social History Household Members: Spouse Housing: Apartment Alcohol intake: never Patient Tobacco Use Status: Never used Tobacco e-Cigarette/Vaping Use: Never Used Second Hand Smoke Exposure: Yes service: No Current occupational status: retired Cognitive needs: No Hearing needs: No Vision needs: Yes Questionnaire PHQ-9 Over the last 2 weeks, how often have you been bothered by any of the following problems? Depression Screening Interpretation: Negative Depression Screening Done: Yes Source: Developed by Drs. Vasile Wren, Jeremiah Loya and colleagues, with an educational danis from [employer]. Thrive Questionnaire Date Thrive assessed: 03/07/23 Currently or been in a relationship where the following occur: no concerns reported THRIVE Score: 0 AUDIT C Alcohol Use Questionnaire (AUDIT-C) 1. How often do you have a drink containing alcohol?: Never 3. How often do you have six or more drinks on one occasion?: Never Total Score: 0 Score Reviewed/Action Taken: Yes DILLON-7 AMB Questionnaire DILLON-7 Date DILLON - 7 assessed: 03/07/23 Source: Developed by Drs. Vasile Wren, Jeremiah Loya and colleagues, with an educational danis from [employer]. Review of Systems Const Denies chills, Reports difficulty sleeping (Trazodone helping recently), Reports fatigue, Denies fever(s) and Denies headache(s) ENT Denies dysphagia, Denies dizziness, Denies otalgia, Denies headache(s), Denies odynophagia and Denies sore throat Card Denies chest pain, Denies palpitations and Denies dyspnea Resp Denies cough and Denies dyspnea GI Denies abdominal pain, Denies constipation, Denies dysphagia, Denies heartburn, Denies diarrhea, Denies nausea, Denies odynophagia and Denies vomiting Denies hematuria, Reports difficulty urinating (at times - Rx helps), Denies dysuria, Denies nocturia and Denies urinary frequency Musc Denies arthralgias and Reports joint swelling (occasionally, over his knees) Skin/Breast Denies rash Neuro Denies dizziness and Denies headache(s) Endo Reports fatigue and Denies palpitations Physical exam (Primary Care) Vital Signs: Last Vital Signs Pulse 72 04/22/23 16:36 BP 148/80 H 04/22/23 16:36 Pulse Ox 100 04/22/23 16:36 Oxygen Delivery Method Room Air 04/22/23 16:36 BMI result Body Mass Index 27.4 Tobacco/Smoking Status: Tobacco use Status Tobacco use date assessed 04/22/23 04/22/23 16:37 Patient Tobacco Use Status Never used Tobacco 04/22/23 16:37 e-Cigarette/Vaping Use Never Used 04/22/23 16:37 Depression Screening Interpretation: Negative Thrive Assessment: Date of Thrive Assessment Date Thrive assessed 03/07/23 04/22/23 16:37 Currently or been in a relationship where the following occur: no concerns reported Const General: no acute distress and alert HENMT Throat: Yes posterior oropharynx normal and Yes tonsils normal (no TP congestion noted) Neck Neck: Yes no lymphadenopathy and Yes supple Resp Auscultation: clear to auscultation bilaterally, no rales and no wheezes Cardio Rate: regular rate Rhythm: abnormal rhythm with ectopic beats Heart sounds: no murmurs GI Palpation (GI): Soft to palpation and nontender Auscultation: normal bowel sounds Skin Rashes: no rashes Extrem General: Yes no clubbing, cyanosis or edema Assessment and Plan Assessment & Plan (1) Ectopic beats: Code(s): I49.49 - Other premature depolarization Plan: Patient was frequently presenting with bradycardia and physical exam/auscultation revealed (+) ectopic beats, possibly in bigeminy His previous EKG suggested the presence of LBBB ? He was sent for repeat EKG and also an echocardiogram JAKE for further evaluation, especially in light of his recent persistently elevated BP readings His EKG done last month showed sinus rhythm with occasional PVCs and nonspecific intraventricular conduction block Echocardiogram revealed normal left ventricular systolic function with calculated ejection fraction at 57% and no obvious valvular pathology seen Patient is reassured that no further evaluation or workups are indicated based on his recent findings, especially since he is completely asymptomatic (2) Pure hypercholesterolemia: Code(s): E78.00 - Pure hypercholesterolemia, unspecified Plan: Reinforced low cholesterol diet Continue Atorvastatin 40 mg QD Will recheck his labs and fasting lipids in 4 months for follow up (3) Type 2 diabetes mellitus with diabetic chronic kidney disease: Code(s): E11.22 - Type 2 diabetes mellitus with diabetic chronic kidney disease Qualifiers: Chronic kidney disease stage: stage 2 (mild) Diabetes mellitus tank terminal gauger insulin use: without tank terminal gauger use Qualified Code(s): E11.22 - Type 2 diabetes mellitus with diabetic chronic kidney disease; N18.2 - Chronic kidney disease, stage 2 (mild) Plan: HgbA1c is at 6.8% on his labs done a couple of months ago (was previously at 6.7%) - goal is <7.0% Reinforced diabetic diet Continue Tradjenta 5 mg QD and Glipizide XL 2.5 mg QD (4) Chronic kidney disease, stage III (moderate): Code(s): N18.30 - Chronic kidney disease, stage 3 unspecified Qualifiers: Chronic kidney disease stage 3 subtype: stage 3a (GFR 45-59) Qualified Code(s): N18.31 - Chronic kidney disease, stage 3a Plan: His renal function appears stable on his labs done a couple of months ago Reinforced strict control of his diabetes and blood pressure to slow down the decline in his renal function Will continue to monitor his renal function and GFR closely (5) Benign essential hypertension: Code(s): I10 - Essential (primary) hypertension Plan: Reinforced low sodium diet - goal is systolic BP of at least 130 mm or less, given his recently declining renal function Continue Valsartan 80 mg QD for now - his blood pressure appears better controlled today than it was over the past couple of months Patient is reminded to continue monitoring his blood pressure regularly (6) Elevated LFTs: Code(s): R79.89 - Other specified abnormal findings of blood chemistry Plan: Resolved - were most likely related to his weight Patient denies any abdominal pain/symptoms and states that he does NOT drink alcohol Will recheck his LFTs again in 4 months for follow up (7) Vitamin D deficiency: Code(s): E55.9 - Vitamin D deficiency, unspecified Plan: Continue Vitamin D3 2000 units QD (8) Anemia: Code(s): D64.9 - Anemia, unspecified Qualifiers: Anemia type: unspecified type Qualified Code(s): D64.9 - Anemia, unspecified Plan: Improved; serum iron levels were normal on his recent labs Colonoscopy done a few years ago in 03/2019 came out normal Will continue to monitor his CBC regularly (9) Constipation: Code(s): K59.00 - Constipation, unspecified Qualifiers: Constipation type: unspecified constipation type Qualified Code(s): K59.00 - Constipation, unspecified Plan: Improved; continue Senna 8.6 mg 1 to 2 tablets QD PRN Reinforced increased oral fluids and dietary fiber (10) Benign prostatic hyperplasia with lower urinary tract symptoms: Code(s): N40.1 - Benign prostatic hyperplasia with lower urinary tract symptoms Qualifiers: Lower urinary tract symptom detail: urinary retention Qualified Code(s): N40.1 - Benign prostatic hyperplasia with lower urinary tract symptoms; R33.8 - Other retention of urine Plan: Continue Tamsulosin 0.8 mg Q HS and Finasteride 5 mg TIW (dose was recently lowered by urology) Follow up with urology as scheduled? (11) Insomnia: Code(s): G47.00 - Insomnia, unspecified Qualifiers: Insomnia type: unspecified Qualified Code(s): G47.00 - Insomnia, unspecified Plan: Sleep hygiene reinforced Continue Trazodone 50 mg Q HS PRN (12) Overweight (BMI 25.0-29.9): Code(s): E66.3 - Overweight Plan: Reinforced diet/exercise as tolerated/lose weight Plan Follow up in 4 months Orders: Orders Complete Blood Count Auto Diff 4 Months D64.9 - Anemia, unspecified Comprehensive [place]. Panel Fast 4 Months E78.00 - Pure hypercholesterolemia, unspecified Lipid Panel 4 Months E78.00 - Pure hypercholesterolemia, unspecified Hemoglobin A1c 4 Months E11.9 - Type 2 diabetes mellitus without complications IRON PROFILE 4 Months D50.9 - Iron deficiency anemia, unspecified Microalbumin, Random (w Creat) 4 Months E11.9 - Type 2 diabetes mellitus without complications TSH reflex Free T4 4 Months E78.00 - Pure hypercholesterolemia, unspecified UA CC w/rflx Micro + Cult 4 Months R30.0 - Dysuria Vitamin D 25-OH Total 4 Months E55.9 - Vitamin D deficiency, unspecified Phosphorus 4 Months N18.30 - Chronic kidney disease, stage 3 unspecified Coding Level of Care Code Est Pt Level 3 (15207) Diagnoses Ectopic beats I49.49 Pure hypercholesterolemia E78.00 Type 2 diabetes mellitus with stage 2 chronic kidney disease, without long-term current use of insulin E11.22; N18.2 Chronic kidney disease stage: stage 2 (mild) Diabetes mellitus residential insulin use: without tank terminal gauger use Stage 3a chronic kidney disease N18.31 Chronic kidney disease stage 3 subtype: stage 3a (GFR 45-59) Benign essential hypertension I10 Elevated LFTs R79.89 Vitamin D deficiency E55.9 Anemia, unspecified type D64.9 Anemia type: unspecified type Constipation, unspecified constipation type K59.00 Constipation type: unspecified constipation type Benign prostatic hyperplasia with urinary retention N40.1; R33.8 Lower urinary tract symptom detail: urinary retention Insomnia, unspecified type G47.00 Insomnia type: unspecified Overweight (BMI 25.0-29.9) E66.3
== END 2023-04-22 17:18 | disposition home or self-care (01) ==
PROVIDERS: PCP Internal Medicine; Visit Provider Internal Medicine
DX: I12.9 Hypertensive chronic kidney disease with stage 1 through stage 4 chronic kidney disease, or unspecified chronic kidney disease (principal); E11.22 Type 2 diabetes mellitus with diabetic chronic kidney disease; N18.31 Chronic kidney disease, stage 3a; I49.49 Other premature depolarization; E78.00 Pure hypercholesterolemia, unspecified; R79.89 Other specified abnormal findings of blood chemistry; E55.9 Vitamin D deficiency, unspecified; D64.9 Anemia, unspecified; K59.00 Constipation, unspecified; N40.1 Benign prostatic hyperplasia with lower urinary tract symptoms
CPT/HCPCS: 99213

== ENCOUNTER 2023-08-19 07:55 | Outpatient (REF) | payer MEDICARE, MEDICAID, SELFPAY ==
[2023-08-19 08:12] LABS: MANUAL DIFF FLAG NO
[2023-08-19 08:26] LABS: Appearance Urine Clear; Color Urine Yellow; Glucose Urine UA Negative (Negative); Leukocyte Esterase Urine Negative (Negative); Nitrite Urine Negative (Negative); Specific Gravity - Urine 1.025 (1.005-1.025); Urine Blood Negative (Negative); Urine Ketones Negative (Negative); Urine Protein Negative (Neg-Trace)
[2023-08-19 08:28] LABS: Basophils Absolute Auto 0.1 X10*3/uL (0.0-0.2); Basophils Percent Auto 0.9 % (0-2); Eosinophils Absolute Auto 0.1 X10*3/uL (0.0-0.4); Eosinophils Percent Auto 1.1 % (0-4); Hemoglobin 12.7 g/dl (14.0-18.0); Imm Gran Abs Auto 0.02 X10*3/uL (0.00-0.03); Imm Gran Pct Auto 0.3 % (0.0-0.4); Lymphocytes Absolute Auto 3.4 X10*3/uL (1.2-4.9); Lymphocytes Percent Auto 48.2 % (20-40); Mean Corpuscular HGB Conc 31.8 g/dl (31.0-36.0); Mean Corpuscular Hemoglobin 27.1 pg (27.0-33.0); Mean Corpuscular Volume 85.3 fL (80.0-98.0); Monocytes Absolute Auto 0.6 X10*3/uL (0.1-1.2); Monocytes Percent Auto 8.7 % (2-11); Neutrophils Absolute Auto 2.9 x10*3/uL (2.0-8.3); Neutrophils Percent Auto 40.8 % (45-73); Platelet Count 166 X10*3/uL (160-400); Red Blood Count 4.69 X10*6/uL (4.60-5.80); Red Cell Distribution Width 14.8 % (11.0-16.0)
[2023-08-19 08:32] LABS: Estimated Average Glucose 143 mg/dL; Hemoglobin A1c % 6.6 % (<6.0)
[2023-08-19 08:56] LABS: Creatinine Urine 206.03 mg/dL; Microalbum/Creatinine Ratio Ur 4.3 ug/mg cr (<30)
[2023-08-19 09:16] LABS: Alanine Aminotransferase 12 U/L (0-40); Albumin Level 4.3 g/dL (3.5-5.0); Alkaline Phosphatase 71 U/L (39-117); Anion Gap 12 (12-20); Aspartate Amino Transferase 16 U/L (5-37); Bilirubin Total 0.6 mg/dL (0.0-1.0); Blood Urea Nitrogen 20 mg/dL (9-16); Calcium 9.7 mg/dL (8.4-10.2); Carbon Dioxide 26 mmol/L (22-29); Chloride 108 mmol/L (96-108); Cholesterol 150 mg/dL (<200); Estimated Glomerular Filt Rate 54; Glucose Fasting 108 mg/dL (60-99); HDL Cholesterol 55 mg/dL (>40); Iron 66 mcg/dL (45-160); LDL Cholesterol Calculated 84 mg/dL (<100); Percent Iron Saturation 26 % (15-50); Phosphorus 2.6 mg/dL (2.7-4.5); Potassium 4.3 mmol/L (3.3-5.1); Sodium 142 mmol/L (135-145); Total Iron Binding Capacity 251 mcg/dL (228-428); Total Protein 7.5 g/dL (6.5-8.0); Triglycerides 57 mg/dL (<150); Unsaturated Iron Binding 185 ug/dL
[2023-08-19 09:17] LABS: TSH reflex Free T4 0.86 uIU/mL (0.32-4.0); Vitamin D 25-OH Total 49.1 ng/mL (>30)
== END 2023-08-19 07:56 | disposition home or self-care (01) ==
LOC: HO.LAB 07:55
PROVIDERS: PCP Internal Medicine; Visit Provider Internal Medicine
DX: D64.9 Anemia, unspecified (principal); E78.00 Pure hypercholesterolemia, unspecified; R30.0 Dysuria; N18.30 Chronic kidney disease, stage 3 unspecified; E11.9 Type 2 diabetes mellitus without complications; D50.9 Iron deficiency anemia, unspecified; E55.9 Vitamin D deficiency, unspecified
CPT/HCPCS: 36415; 80053; 80061; 81003; 82043; 82306; 82570; 83036; 83540; 84100; 84443; 85025

== ENCOUNTER 2023-08-23 09:43 | Outpatient (AMB) | payer MEDICARE, MEDICAID, SELFPAY ==
--- NOTE | 2023-08-23 09:48 | MHC.PC.OV ---
Vital Signs 08/23/23 09:49 Height 5 ft 8 in Weight 173 lb 0.6 oz BMI 26.3 BP 132/78 Blood Pressure Location Lt brachial Position Sitting Pulse 68 Pulse Source Pulse Oximeter Pulse Oximetry (%) 98 Oxygen Delivery Method Room Air Intake Visit Reasons: 4 month f/u Lozenge Dough Mixer Required: No Allergies metformin [METFORMIN] Adverse Reaction (Mild, Verified 08/23/23 09:57) STOMACH UPSET,DIARRHEA Medication List - Last Reconciled 08/23/23 by Jimmy Hurtado MD atorvastatin 40 mg PO DAILY 90 days blood sugar diagnostic (FreeStyle Lite Strips) As directed - test 1 to 2 times a day cholecalciferol (vitamin D3) 50 mcg PO DAILY 90 days finasteride 5 mg PO .Sat 90 days glipizide ER 2.5 mg PO DAILY sennosides (senna) 17.2 mg (2 x 8.6 mg) PO BEDTIME PRN 30 days tamsulosin 0.8 mg (2 x 0.4 mg) PO DAILY 90 days Tradjenta (linagliptin) 5 mg PO DAILY 90 days NS trazodone 50 mg PO BEDTIME PRN 30 days valsartan 80 mg PO DAILY 90 days Tobacco use date assessed: 04/22/23 Fall risk assessment: No Falls in past year Last assessed Fall Risk: 08/23/23 Dental Screening Dental Screen Date: 04/22/23 HPI 4 month f/u HPI Details Patient comes in today for his follow-up visit States that he currently feels okay He denies any headaches or dizziness Denies any chest pains, no shortness of breath No nausea/ vomiting, no abdominal pain No change in bowel habits noted He had his follow up labs done a few days ago - to discuss his results [facility] Medical History Insomnia Chronic kidney disease, stage III (moderate) Vitamin D deficiency BPH associated with nocturia Chronic constipation Benign prostatic hyperplasia with lower urinary tract symptoms Overweight (BMI 25.0-29.9) Pure hypercholesterolemia Benign essential hypertension Type 2 diabetes mellitus with diabetic chronic kidney disease Surgical History History of colonoscopy History of hemorrhoidectomy History of inguinal hernia repair Family History Father No problems noted. Mother Medical history unknown Social History Household Members: Spouse Housing: Apartment Alcohol intake: never Patient Tobacco Use Status: Never used Tobacco e-Cigarette/Vaping Use: Never Used Second Hand Smoke Exposure: Yes service: No Current occupational status: retired Cognitive needs: No Hearing needs: No Vision needs: Yes Questionnaire Thrive Questionnaire Date Thrive assessed: 03/07/23 AUDIT C Alcohol Use Questionnaire (AUDIT-C) 1. How often do you have a drink containing alcohol?: Never 3. How often do you have six or more drinks on one occasion?: Never Total Score: 0 Score Reviewed/Action Taken: Yes DILLON-7 AMB Questionnaire DILLON-7 Date DILLON - 7 assessed: 03/07/23 Source: Developed by Drs. Vasile Wren, Bette Chen, Jeremiah Leija and colleagues, with an educational danis from [employer]. Review of Systems Const Denies chills, Denies difficulty sleeping, Reports fatigue, Denies fever(s) and Denies headache(s) ENT Denies dysphagia, Denies dizziness, Denies otalgia, Denies headache(s), Denies odynophagia and Denies sore throat Card Denies chest pain, Denies palpitations and Denies dyspnea Resp Denies cough and Denies dyspnea GI Denies abdominal pain, Denies constipation, Denies dysphagia, Denies heartburn, Denies diarrhea, Denies nausea, Denies odynophagia and Denies vomiting Denies hematuria, Reports difficulty urinating (at times - Rx helps), Denies dysuria, Denies nocturia and Denies urinary frequency Musc Denies arthralgias and Reports joint swelling (occasionally, over his knees) Skin/Breast Denies rash Neuro Denies dizziness and Denies headache(s) Endo Reports fatigue and Denies palpitations Physical exam (Primary Care) Vital Signs: Last Vital Signs Pulse 68 08/23/23 09:49 BP 132/78 08/23/23 09:49 Pulse Ox 98 08/23/23 09:49 Oxygen Delivery Method Room Air 08/23/23 09:49 BMI result Body Mass Index 26.3 Tobacco/Smoking Status: Tobacco use Status Tobacco use date assessed 04/22/23 08/23/23 09:52 Patient Tobacco Use Status Never used Tobacco 08/23/23 09:52 e-Cigarette/Vaping Use Never Used 08/23/23 09:52 Thrive Assessment: Date of Thrive Assessment Date Thrive assessed 03/07/23 08/23/23 09:52 Const General: no acute distress and alert HENMT Ears: TM's normal bilaterally and EAC's normal Throat: Yes posterior oropharynx normal and Yes tonsils normal (no TP congestion noted) Neck Neck: Yes no lymphadenopathy and Yes supple Thyroid: Thyroid normal Resp Auscultation: clear to auscultation bilaterally, no rales and no wheezes Cardio Rate: regular rate Rhythm: abnormal rhythm with ectopic beats Heart sounds: no murmurs GI Palpation (GI): Soft to palpation and nontender Auscultation: normal bowel sounds General: Yes no CVA tenderness Back/Spine/Pelvis Back: no CVA tenderness Thoracic/Lumbar Spine: No lumbar spinal tenderness Skin Rashes: no rashes Extrem General: Yes no clubbing, cyanosis or edema Results Reviewed Results Reviewed: Laboratory Tests 08/19/23 08/19/23 08:10 08:11 WBC 7.0 Hgb 12.7 L Hct 40.0 L Plt Count 166 Sodium 142 Potassium 4.3 Creatinine 1.30 Estimated GFR 54 Fasting Glucose 108 H Hemoglobin A1c % 6.6 H Calcium 9.7 Iron 66 TIBC 251 % Saturation 26 AST 16 ALT 12 Triglycerides 57 Cholesterol 150 LDL Cholesterol, Calc 84 HDL Cholesterol 55 25-OH Vitamin D Total 49.1 TSH 0.86 Ur Specific Todd 1.025 Urine Protein Negative Urine Glucose (UA) Negative Urine Blood Negative Urine Nitrite Negative Ur Leukocyte Esterase Negative Microalb/Creat Ratio 4.3 Assessment and Plan Assessment & Plan (1) Pure hypercholesterolemia: Code(s): E78.00 - Pure hypercholesterolemia, unspecified Plan: Results of his labs done a few days ago reviewed and discussed with patient Reinforced low cholesterol diet Continue Atorvastatin 40 mg QD Will recheck his labs and fasting lipids in 4 months for follow up (2) Type 2 diabetes mellitus with diabetic chronic kidney disease: Code(s): E11.22 - Type 2 diabetes mellitus with diabetic chronic kidney disease Qualifiers: Diabetes mellitus chcf insulin use: without chcf use Chronic kidney disease stage: stage 2 (mild) Qualified Code(s): E11.22 - Type 2 diabetes mellitus with diabetic chronic kidney disease; N18.2 - Chronic kidney disease, stage 2 (mild) Plan: HgbA1c is at 6.6% on his labs done a few days ago (was previously at 6.8% back in February 2023) - goal is <7.0% Reinforced diabetic diet Continue Tradjenta 5 mg QD and Glipizide XL 2.5 mg QD (3) Benign essential hypertension: Code(s): I10 - Essential (primary) hypertension Plan: Reinforced low sodium diet - goal is systolic BP of at least 130 mm or less Continue Valsartan 80 mg QD - his blood pressure appears much better controlled today than it was over the past several months Patient is reminded to continue monitoring his blood pressure regularly (4) Chronic kidney disease, stage III (moderate): Code(s): N18.30 - Chronic kidney disease, stage 3 unspecified Qualifiers: Chronic kidney disease stage 3 subtype: stage 3a (GFR 45-59) Qualified Code(s): N18.31 - Chronic kidney disease, stage 3a Plan: His renal function appears stable on his labs done a few days ago Reinforced strict control of his diabetes and blood pressure to slow down the decline in his renal function Will continue to monitor his renal function and GFR closely (5) Ectopic beats: Code(s): I49.49 - Other premature depolarization Plan: His most recent EKG done a few months ago (03/2023) showed sinus rhythm with occasional PVCs and nonspecific intraventricular conduction block Echocardiogram revealed normal left ventricular systolic function with calculated ejection fraction at 57% and no obvious valvular pathology seen Patient is reassured that no further evaluation or workups are indicated based on his recent findings, especially as he is completely asymptomatic from a cardiac standpoint (6) Elevated LFTs: Code(s): R79.89 - Other specified abnormal findings of blood chemistry Plan: Resolved - were most likely related to his weight; his LFTs have remained normal on his recent labs Patient denies any abdominal pain/symptoms and states that he does NOT drink alcohol Will continue to monitor his LFTs regularly (7) Vitamin D deficiency: Code(s): E55.9 - Vitamin D deficiency, unspecified Plan: Continue Vitamin D3 2000 units QD (8) Anemia: Code(s): D64.9 - Anemia, unspecified Qualifiers: Anemia type: unspecified type Qualified Code(s): D64.9 - Anemia, unspecified Plan: Improved; serum iron levels were normal on his recent labs Colonoscopy done a few years ago in 03/2019 came out normal As he more often than not presents with mild anemia over the years, will include a Hgb electrophoresis with his labs in a few months for further evaluation Will continue to monitor his CBC regularly (9) Constipation: Code(s): K59.00 - Constipation, unspecified Qualifiers: Constipation type: unspecified constipation type Qualified Code(s): K59.00 - Constipation, unspecified Plan: Improved; continue Senna 8.6 mg 1 to 2 tablets QD PRN Reinforced increased oral fluids and dietary fiber (10) Benign prostatic hyperplasia with lower urinary tract symptoms: Code(s): N40.1 - Benign prostatic hyperplasia with lower urinary tract symptoms Qualifiers: Lower urinary tract symptom detail: urinary retention Qualified Code(s): N40.1 - Benign prostatic hyperplasia with lower urinary tract symptoms; R33.8 - Other retention of urine Plan: Continue Tamsulosin 0.8 mg Q HS and Finasteride 5 mg TIW (dose was lowered by urology) Follow up with urology as scheduled? (11) Insomnia: Code(s): G47.00 - Insomnia, unspecified Qualifiers: Insomnia type: unspecified Qualified Code(s): G47.00 - Insomnia, unspecified Plan: Resolved; sleep hygiene reinforced He was prescribed Trazodone 50 mg Q HS PRN previously but patient states that he never really took a lot of this and has not taken this in a few months now - would like to have this discontinued from his med list (12) Overweight (BMI 25.0-29.9): Code(s): E66.3 - Overweight Plan: Reinforced diet/exercise as tolerated/lose weight - he has lost some weight (intentionally) since his last visit Plan Follow up in 4 months Orders: Orders Complete Blood Count Auto Diff 4 Months D64.9 - Anemia, unspecified Lipid Panel 4 Months E78.00 - Pure hypercholesterolemia, unspecified Microalbumin, Random (w Creat) 4 Months E11.9 - Type 2 diabetes mellitus without complications TSH reflex Free T4 4 Months E78.00 - Pure hypercholesterolemia, unspecified UA CC w/rflx Micro + Cult 4 Months R30.0 - Dysuria Hemoglobin Electrophoresis 4 Months D64.9 - Anemia, unspecified Hemoglobin A1c 4 Months E11.9 - Type 2 diabetes mellitus without complications Comprehensive [place]. Panel Fast 4 Months E78.00 - Pure hypercholesterolemia, unspecified Vitamin D 25-OH Total 4 Months E55.9 - Vitamin D deficiency, unspecified Medications: Discontinued trazodone Discontinued Reason: Patient no longer taking 50 mg PO BEDTIME 30 days PRN 30 tabs 2RF sleep Coding Level of Care Code Est Pt Level 4 (49363) Complex EM visit Add On G2211 Diagnoses Pure hypercholesterolemia E78.00 Type 2 diabetes mellitus with stage 2 chronic kidney disease, without long-term current use of insulin E11.22; N18.2 Diabetes mellitus predatory animal exterminator insulin use: without predatory animal exterminator use Chronic kidney disease stage: stage 2 (mild) Benign essential hypertension I10 Stage 3a chronic kidney disease N18.31 Chronic kidney disease stage 3 subtype: stage 3a (GFR 45-59) Ectopic beats I49.49 Elevated LFTs R79.89 Vitamin D deficiency E55.9 Anemia, unspecified type D64.9 Anemia type: unspecified type Constipation, unspecified constipation type K59.00 Constipation type: unspecified constipation type Benign prostatic hyperplasia with urinary retention N40.1; R33.8 Lower urinary tract symptom detail: urinary retention Insomnia, unspecified type G47.00 Insomnia type: unspecified Overweight (BMI 25.0-29.9) E66.3
[2023-08-23 09:49] VITALS: BP 132/78; PULSE 68; O2SAT 98; BMI 26.3
== END 2023-08-23 10:28 | disposition home or self-care (01) ==
PROVIDERS: PCP Internal Medicine; Visit Provider Internal Medicine
DX: I12.9 Hypertensive chronic kidney disease with stage 1 through stage 4 chronic kidney disease, or unspecified chronic kidney disease (principal); E11.22 Type 2 diabetes mellitus with diabetic chronic kidney disease; N18.31 Chronic kidney disease, stage 3a; E78.00 Pure hypercholesterolemia, unspecified; I49.49 Other premature depolarization; R79.89 Other specified abnormal findings of blood chemistry; E55.9 Vitamin D deficiency, unspecified; D64.9 Anemia, unspecified; K59.00 Constipation, unspecified; N40.1 Benign prostatic hyperplasia with lower urinary tract symptoms; R33.8 Other retention of urine; G47.00 Insomnia, unspecified
CPT/HCPCS: 99214; G2211

== ENCOUNTER 2023-12-09 08:13 | Outpatient (REF) | payer MEDICARE, MEDICAID, SELFPAY ==
[2023-12-09 08:49] LABS: MANUAL DIFF FLAG NO
[2023-12-09 09:10] LABS: Basophils Absolute Auto 0.1 X10*3/uL (0.0-0.2); Eosinophils Absolute Auto 0.1 X10*3/uL (0.0-0.4); Eosinophils Percent Auto 1.2 % (0-4); Hematocrit 39.9 % (42.0-52.0); Hemoglobin 12.9 g/dl (14.0-18.0); Imm Gran Abs Auto 0.02 X10*3/uL (0.00-0.03); Imm Gran Pct Auto 0.2 % (0.0-0.4); Lymphocytes Absolute Auto 3.6 X10*3/uL (1.2-4.9); Lymphocytes Percent Auto 43.9 % (20-40); Mean Corpuscular HGB Conc 32.3 g/dl (31.0-36.0); Mean Corpuscular Hemoglobin 27.5 pg (27.0-33.0); Mean Corpuscular Volume 85.1 fL (80.0-98.0); Mean Platelet Volume 11.4 fL (9.4-12.4); Monocytes Absolute Auto 0.6 X10*3/uL (0.1-1.2); Monocytes Percent Auto 7.2 % (2-11); Neutrophils Absolute Auto 3.8 x10*3/uL (2.0-8.3); Neutrophils Percent Auto 46.5 % (45-73); Platelet Count 159 X10*3/uL (160-400); Red Blood Count 4.69 X10*6/uL (4.60-5.80); Red Cell Distribution Width 14.8 % (11.0-16.0); White Blood Count 8.1 X10*3/uL (4.8-10.8)
[2023-12-09 09:31] LABS: Estimated Average Glucose 146 mg/dL; Hemoglobin A1C 157.3529 umol/L; Hemoglobin A1c % 6.7 % (<6.0); Total Hemoglobin (HGBA1C) 3176.1806 umol/L
[2023-12-09 10:17] LABS: Appearance Urine Clear; Color Urine Yellow; Glucose Urine UA Negative (Negative); Leukocyte Esterase Urine Negative (Negative); Nitrite Urine Negative (Negative); PH 5.5 (5.0-9.0); Urine Blood Negative (Negative); Urine Ketones Trace mg/dL (Negative); Urine Protein Negative (Neg-Trace)
[2023-12-09 10:46] LABS: Anion Gap 12 (12-20)
[2023-12-09 10:50] LABS: Albumin Level 4.5 g/dL (3.5-5.0); Alkaline Phosphatase 63 U/L (39-117); Bilirubin Total 0.7 mg/dL (0.0-1.0); Blood Urea Nitrogen 17 mg/dL (9-16); Calcium 9.8 mg/dL (8.4-10.2); Carbon Dioxide 28 mmol/L (22-29); Chloride 106 mmol/L (96-108); Cholesterol 152 mg/dL (<200); Estimated Glomerular Filt Rate 50; Glucose Fasting 98 mg/dL (60-99); HDL Cholesterol 61 mg/dL (>40); LDL Cholesterol Calculated 79 mg/dL (<100); Potassium 4.4 mmol/L (3.3-5.1); Sodium 142 mmol/L (135-145); Total Protein 7.5 g/dL (6.5-8.0); Triglycerides 64 mg/dL (<150)
[2023-12-09 10:57] LABS: Creatinine Urine 248.27 mg/dL; Microalbum/Creatinine Ratio Ur 3.6 ug/mg cr (<30)
[2023-12-09 11:01] LABS: TSH reflex Free T4 1.08 uIU/mL (0.32-4.0); Vitamin D 25-OH Total 51.9 ng/mL (>30)
[2023-12-09 12:33] LABS: Alanine Aminotransferase 12 U/L (0-40); Aspartate Amino Transferase 23 U/L (5-37)
[2023-12-10 13:42] LABS: Hematocrit 40.5 % (38.5-50.0); Hemoglobin 13.1 g/dL (13.2-17.1); MCH 27.3 pg (27.0-33.0); MCV 84.4 fL (80.0-100.0); RDW 13.7 % (11.0-15.0)
== END 2023-12-09 08:14 | disposition home or self-care (01) ==
LOC: HO.LAB 08:13
PROVIDERS: PCP Internal Medicine; Visit Provider Internal Medicine
DX: E11.9 Type 2 diabetes mellitus without complications (principal); E78.00 Pure hypercholesterolemia, unspecified; D64.9 Anemia, unspecified; R30.0 Dysuria; E55.9 Vitamin D deficiency, unspecified
CPT/HCPCS: 36415; 80053; 80061; 81003; 82043; 82306; 82570; 83020; 83036; 84443; 85014; 85018; 85025; 85041

== ENCOUNTER 2023-12-27 09:59 | Outpatient (AMB) | payer MEDICARE, MEDICAID, SELFPAY ==
[2023-12-27 10:16] VITALS: BP 130/78; PULSE 75; O2SAT 97; BMI 26.8
--- NOTE | 2023-12-27 10:16 | MHC.PC.OV ---
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 Accompanied by: Self / Same As Patient Allergies metformin [METFORMIN] Adverse Reaction (Mild, Verified 12/27/23 10:54) STOMACH UPSET,DIARRHEA Medication List - Last Reconciled 12/27/23 by Jimmy Hurtado MD atorvastatin 40 mg PO DAILY 90 days blood sugar diagnostic (FreeStyle Lite Strips) As directed - test 1 to 2 times a day cholecalciferol (vitamin D3) 50 mcg PO DAILY 90 days finasteride 5 mg PO .Sat 90 days glipizide ER 2.5 mg PO DAILY sennosides (senna) 17.2 mg (2 x 8.6 mg) PO BEDTIME PRN 30 days tamsulosin 0.8 mg (2 x 0.4 mg) PO DAILY 90 days Tradjenta (linagliptin) 5 mg PO DAILY 90 days NS valsartan 80 mg PO DAILY 90 days Tobacco use date assessed: 12/27/23 Fall risk assessment: No Falls in past year Last assessed Fall Risk: 12/27/23 Dental Screening Dental Screen Date: 12/27/23 Did you have a dental visit in the last 12 months?: No Did you have a dental problem in the last 6 months where you did not have access to dental care?: No Was dental information given to patient?: No HPI 4 Month F/U HPI Details Patient comes in today for his follow-up visit States that he feels okay He denies any headaches or dizziness Denies any chest pains, no increased shortness of breath No nausea/ vomiting, no abdominal pain No change in bowel habits noted He had his follow up labs done a couple of weeks ago - to discuss his results [facility] Medical History Insomnia Chronic kidney disease, stage III (moderate) Vitamin D deficiency BPH associated with nocturia Chronic constipation Benign prostatic hyperplasia with lower urinary tract symptoms Overweight (BMI 25.0-29.9) Pure hypercholesterolemia Benign essential hypertension Type 2 diabetes mellitus with diabetic chronic kidney disease Surgical History History of colonoscopy History of hemorrhoidectomy History of inguinal hernia repair Family History Father No problems noted. Mother Medical history unknown Social History Household Members: Spouse Housing: Apartment Alcohol intake: never Patient Tobacco Use Status: Never used Tobacco e-Cigarette/Vaping Use: Never Used Second Hand Smoke Exposure: Yes service: No Current occupational status: retired Cognitive needs: No Hearing needs: No Vision needs: Yes Questionnaire PHQ-9 Over the last 2 weeks, how often have you been bothered by any of the following problems? 1. Little interest or pleasure in doing things: not at all 2. Feeling down, depressed, or hopeless: not at all 3. Trouble falling or staying asleep, or sleeping too much: not at all 4. Feeling tired or having little energy: not at all 5. Poor appetite or overeating: not at all 6. Feeling bad about yourself - or that you are a failure or have let yourself or your family down: not at all 7. Trouble concentrating on things, such as reading the newspaper or watching television: not at all 8. Moving or speaking so slowly that other people could have noticed. Or the opposite - being so fidgety or restless that you have been moving around a lot more than usual: not at all 9. Thoughts that you would be better off or of hurting yourself in some way: not at all Total score: 0 Depression Screening Interpretation: Negative Depression Screening Done: Yes 06666 - PHQ-9 Billing: Yes Source: Developed by Drs. Vasile Wren, Bette Chen, Jeremiah Leija and colleagues, with an educational danis from [employer]. Thrive Questionnaire Date Thrive assessed: 12/27/23 I am a: Patient What is your living situation today?: I have a steady place to live Within the past 12 months, did the food you bought not last and you didn't have the money to get more?: Never true Within the past 12 months, did you worry whether your food would run out before you got money to buy more?: Never true Do you have trouble paying for medicines?: No Do you have trouble getting transportation to medical appointments?: No Do you have trouble paying your heating and electricity bill?: No Do you have trouble taking care of your child, family member or friend?: No Do you have trouble with day-to-day activities such as bathing, preparing meals, shopping, managing finances, etc.?: No Are you currently unemployed and looking for a job?: No Are you interested in more education?: No Please select the resources that you would like help with: None Currently or been in a relationship where the following occur: No concerns reported THRIVE Score: 0 AUDIT C Alcohol Use Questionnaire (AUDIT-C) 1. How often do you have a drink containing alcohol?: Never 3. How often do you have six or more drinks on one occasion?: Never Total Score: 0 Score Reviewed/Action Taken: Yes DILLON-7 AMB Questionnaire DILLON-7 Date DILLON - 7 assessed: 12/27/23 Feeling nervous, anxious, or on edge: 0 = Not at all Not being able to stop or control worryin = Not at all Worrying too much about different things: 0 = Not at all Trouble relaxin = Not at all Being so restless that it is hard to sit still: 0 = Not at all Becoming easily annoyed or irritable: 0 = Not at all Feeling afraid as if something awful might happen: 0 = Not at all Total DILLON-7 score (0-4 normal; 5-9 mild; 10-14 moderate; 15-21 severe): 0 Source: Developed by Drs. Vasile Wren, Bette Chen, Jeremiah Leija and colleagues, with an educational danis from [employer]. Review of Systems Const Denies chills, Denies fatigue, Denies fever(s) and Denies headache(s) ENT Denies dysphagia, Denies dizziness, Denies otalgia, Denies headache(s), Denies neck pain, Denies odynophagia and Denies sore throat Card Denies chest pain, Denies palpitations and Denies dyspnea Resp Denies chest congestion, Denies cough and Denies dyspnea GI Denies abdominal pain, Denies constipation, Denies dysphagia, Denies heartburn, Denies diarrhea, Denies nausea, Denies odynophagia and Denies vomiting Denies hematuria, Reports difficulty urinating (at times - Rx helps), Denies dysuria, Denies nocturia and Denies urinary frequency Musc Denies back pain, Denies arthralgias and Denies neck pain Skin/Breast Denies rash Neuro Denies dizziness and Denies headache(s) Endo Denies fatigue and Denies palpitations Physical exam (Primary Care) Vital Signs: Last Vital Signs Pulse 75 12/27/23 10:16 BP 130/78 12/27/23 10:16 Pulse Ox 97 12/27/23 10:16 Oxygen Delivery Method Room Air 12/27/23 10:16 BMI result Body Mass Index 26.8 Tobacco/Smoking Status: Tobacco use Status Tobacco use date assessed 12/27/23 12/27/23 10:17 Patient Tobacco Use Status Never used Tobacco 12/27/23 10:17 e-Cigarette/Vaping Use Never Used 12/27/23 10:17 PHQ-9: PHQ-9 Score PHQ-9: Total score 0 12/27/23 10:55 Depression Screening Interpretation: Negative Thrive Assessment: Date of Thrive Assessment Date Thrive assessed 12/27/23 12/27/23 10:17 Currently or been in a relationship where the following occur: No concerns reported Const General: no acute distress and alert HENMT Ears: TM's normal bilaterally and EAC's normal Throat: Yes posterior oropharynx normal and Yes tonsils normal (no TP congestion noted) Neck Neck: Yes no lymphadenopathy and Yes supple Thyroid: Thyroid normal Resp Auscultation: clear to auscultation bilaterally, no rales and no wheezes Cardio Rate: regular rate Rhythm: abnormal rhythm with ectopic beats Heart sounds: no murmurs GI Palpation (GI): Soft to palpation and nontender Auscultation: normal bowel sounds General: Yes no CVA tenderness Back/Spine/Pelvis Back: no CVA tenderness Thoracic/Lumbar Spine: No lumbar spinal tenderness Skin Rashes: no rashes Extrem General: Yes no clubbing, cyanosis or edema Results Reviewed Results Reviewed: Laboratory Tests 12/09/23 12/09/23 08:30 08:46 WBC 8.1 Hgb 12.9 L Hct 39.9 L Plt Count 159 L Sodium 142 Potassium 4.4 Creatinine 1.39 Estimated GFR 50 Fasting Glucose 98 Hemoglobin A1c % 6.7 H Calcium 9.8 AST 23 ALT 12 Triglycerides 64 Cholesterol 152 LDL Cholesterol, Calc 79 HDL Cholesterol 61 25-OH Vitamin D Total 51.9 TSH 1.08 Ur Specific [place] 1.020 Urine Protein Negative Urine Glucose (UA) Negative Urine Blood Negative Urine Nitrite Negative Ur Leukocyte Esterase Negative Microalb/Creat Ratio 3.6 Coding Level of Care Code Est Pt Level 4 (86583) Diagnoses Pure hypercholesterolemia E78.00 Type 2 diabetes mellitus with stage 2 chronic kidney disease, without long-term current use of insulin E11.22; N18.2 Diabetes mellitus [facility] insulin use: without [facility] use Chronic kidney disease stage: stage 2 (mild) Benign essential hypertension I10 Stage 3a chronic kidney disease N18.31 Chronic kidney disease stage 3 subtype: stage 3a (GFR 45-59) Ectopic beats I49.49 Elevated LFTs R79.89 Vitamin D deficiency E55.9 Anemia, unspecified type D64.9 Anemia type: unspecified type Constipation, unspecified constipation type K59.00 Constipation type: unspecified constipation type Benign prostatic hyperplasia with urinary retention N40.1; R33.8 Lower urinary tract symptom detail: urinary retention Insomnia, unspecified type G47.00 Insomnia type: unspecified Overweight (BMI 25.0-29.9) E66.3 Additional Codes PHQ-9 - 28761 - PHQ-9 Billing: Yes ([id number]) Assessment & Plan Assessment & Plan (1) Pure hypercholesterolemia: Code(s): E78.00 - Pure hypercholesterolemia, unspecified Category: Medical Plan: Results of his labs done a couple of weeks ago reviewed and discussed with patient Reinforced low cholesterol diet Continue Atorvastatin 40 mg QD Will recheck his labs and fasting lipids in 4 months for follow up (2) Type 2 diabetes mellitus with diabetic chronic kidney disease: Code(s): E11.22 - Type 2 diabetes mellitus with diabetic chronic kidney disease Category: Medical Qualifiers: 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: without [facility] use Chronic kidney disease stage: stage 2 (mild) Qualified Code(s): E11.22 - Type 2 diabetes mellitus with diabetic chronic kidney disease; N18.2 - Chronic kidney disease, stage 2 (mild) Plan: His HgbA1c was at 6.7% on his labs done a couple of weeks ago (was previously at 6.6% a few months ago) - goal is <7.0% Reinforced diabetic diet Continue Tradjenta 5 mg QD and Glipizide XL 2.5 mg QD (3) Benign essential hypertension: Code(s): I10 - Essential (primary) hypertension Category: Medical Plan: Reinforced low sodium diet - goal is systolic BP of at least 130 mm or less Continue Valsartan 80 mg QD - his blood pressure appears much better controlled today than it was over the past several months Patient is reminded to continue monitoring his blood pressure regularly (4) Chronic kidney disease, stage III (moderate): Code(s): N18.30 - Chronic kidney disease, stage 3 unspecified Category: Medical Qualifiers: Chronic kidney disease stage 3 subtype: stage 3a (GFR 45-59) Qualified Code(s): N18.31 - Chronic kidney disease, stage 3a Plan: His renal function again appears stable on his labs done a couple of weeks ago Reinforced strict control of his diabetes and blood pressure to slow down the decline in his renal function Will continue to monitor his renal function and GFR closely (5) Ectopic beats: Code(s): I49.49 - Other premature depolarization Category: Medical Plan: His most recent EKG done back in 03/2023 showed sinus rhythm with occasional PVCs and nonspecific intraventricular conduction block Echocardiogram revealed normal left ventricular systolic function with calculated ejection fraction at 57% and no obvious valvular pathology seen Patient is reassured that no further evaluation or workups are indicated based on his recent findings, especially as he is completely asymptomatic from a cardiac standpoint (6) Elevated LFTs: Code(s): R79.89 - Other specified abnormal findings of blood chemistry Category: Medical Plan: Resolved and his LFTs have remained normal on his recent labs These were most likely related to his weight Patient denies any abdominal pain/symptoms and states that he does NOT drink alcohol Will continue to monitor his LFTs regularly (7) Vitamin D deficiency: Code(s): E55.9 - Vitamin D deficiency, unspecified Category: Medical Plan: Continue Vitamin D3 2000 units QD (8) Anemia: Code(s): D64.9 - Anemia, unspecified Category: Medical Qualifiers: Anemia type: unspecified type Qualified Code(s): D64.9 - Anemia, unspecified Plan: Stable, although his H/H are still slightly under the normal cutoff at 12.9/39.9 His serum iron levels were normal when they were recently checked Colonoscopy done a few years ago in 03/2019 came out normal Hgb electrophoresis was also checked with his recent labs - test came back normal as well Will continue to monitor his CBC regularly (9) Constipation: Code(s): K59.00 - Constipation, unspecified Category: Medical Qualifiers: Constipation type: unspecified constipation type Qualified Code(s): K59.00 - Constipation, unspecified Plan: Improved; continue Senna 8.6 mg 1 to 2 tablets QD PRN Reinforced increased oral fluids and dietary fiber (10) Benign prostatic hyperplasia with lower urinary tract symptoms: Code(s): N40.1 - Benign prostatic hyperplasia with lower urinary tract symptoms Category: Medical Qualifiers: Lower urinary tract symptom detail: urinary retention Qualified Code(s): N40.1 - Benign prostatic hyperplasia with lower urinary tract symptoms; R33.8 - Other retention of urine Plan: Continue Tamsulosin 0.8 mg Q HS and Finasteride 5 mg TIW (dose was lowered by urology) Follow up with urology as scheduled? (11) Insomnia: Code(s): G47.00 - Insomnia, unspecified Category: Medical Qualifiers: Insomnia type: unspecified Qualified Code(s): G47.00 - Insomnia, unspecified Plan: Resolved; sleep hygiene reinforced He was prescribed Trazodone 50 mg Q HS PRN previously but patient states that he never really took a lot of this and has not taken this in months now (12) Overweight (BMI 25.0-29.9): Code(s): E66.3 - Overweight Category: Medical Plan: Reinforced diet/exercise as tolerated/lose weight Plan Follow up in 4 months Orders: Orders Comprehensive [place]. Panel Fast 4 Months E78.00 - Pure hypercholesterolemia, unspecified Lipid Panel 4 Months E78.00 - Pure hypercholesterolemia, unspecified Hemoglobin A1c 4 Months E11.9 - Type 2 diabetes mellitus without complications Microalbumin, Random (w Creat) 4 Months E11.9 - Type 2 diabetes mellitus without complications TSH reflex Free T4 4 Months E78.00 - Pure hypercholesterolemia, unspecified Complete Blood Count Auto Diff 4 Months D64.9 - Anemia, unspecified UA CC w/rflx Micro + Cult 4 Months R30.0 - Dysuria Vitamin D 25-OH Total 4 Months E55.9 - Vitamin D deficiency, unspecified Vitamin B12 and Folate 4 Months E53.8 - Deficiency of other specified B group vitamins
== END 2023-12-27 10:58 | disposition home or self-care (01) ==
PROVIDERS: PCP Internal Medicine; Visit Provider Internal Medicine
DX: I12.9 Hypertensive chronic kidney disease with stage 1 through stage 4 chronic kidney disease, or unspecified chronic kidney disease (principal); E11.22 Type 2 diabetes mellitus with diabetic chronic kidney disease; N18.31 Chronic kidney disease, stage 3a; E78.00 Pure hypercholesterolemia, unspecified; I49.49 Other premature depolarization; E55.9 Vitamin D deficiency, unspecified; D64.9 Anemia, unspecified; K59.00 Constipation, unspecified; N40.1 Benign prostatic hyperplasia with lower urinary tract symptoms; R33.8 Other retention of urine; G47.00 Insomnia, unspecified; E66.3 Overweight

== ENCOUNTER → 2023-12-27 09:59 | Outpatient (BNVA) | payer MEDICARE, MEDICAID, SELFPAY | PROVIDERS: PCP Internal Medicine; Visit Provider Internal Medicine | DX: E78.00 Pure hypercholesterolemia, unspecified (principal); E11.22 Type 2 diabetes mellitus with diabetic chronic kidney disease; N18.31 Chronic kidney disease, stage 3a; I49.49 Other premature depolarization; R79.89 Other specified abnormal findings of blood chemistry; E55.9 Vitamin D deficiency, unspecified; D64.9 Anemia, unspecified; K59.00 Constipation, unspecified; N40.1 Benign prostatic hyperplasia with lower urinary tract symptoms; R33.8 Other retention of urine; G47.00 Insomnia, unspecified; E66.3 Overweight | CPT/HCPCS: 96127; 99212 ==

== ENCOUNTER 2023-12-30 11:44 | Outpatient (REF) | payer MEDICARE, MEDICAID, SELFPAY | END 2023-12-30 11:45 | disposition home or self-care (01) | LOC: HO.LAB 11:44 | PROVIDERS: PCP Internal Medicine; Visit Provider Urology | DX: R97.20 Elevated prostate specific antigen [PSA] (principal); Z12.5 Encounter for screening for malignant neoplasm of prostate | CPT/HCPCS: 36415; 84153 ==

== ENCOUNTER 2024-01-08 13:14 | Outpatient (AMB) | payer MEDICARE, MEDICAID, SELFPAY ==
--- NOTE | 2024-01-08 13:32 | A.OFFVIS_ITS ---
Intake Visit Reasons: 1Y PSA(SET) Intake Note: Patient is present for 1Y PSA Follow Up Urology Med: Tamsulosin, Finasteride Antibiotic Allergy: None Blood Thinner: None Last PVR:0ML LABS: 12/30/2023 - PSA: 2.50 12/09/2023 - Hemoglobin A1C: 6.7(H) Patient states he has been good on medication no refills needed. denies any issues with urination/voiding Whitewasher Required: Yes Whitewasher Language: Quality Assurance/R&D Lab Technician Services: Whitewasher Present Accompanied by: Self / Same As Patient Allergies metformin [METFORMIN] Adverse Reaction (Mild, Verified 01/08/24 13:33) STOMACH UPSET,DIARRHEA Medication List - Last Reconciled 01/08/24 by Henrik Ramsey MD atorvastatin 40 mg PO DAILY 90 days blood sugar diagnostic (FreeStyle Lite Strips) As directed - test 1 to 2 times a day cholecalciferol (vitamin D3) 50 mcg PO DAILY 90 days finasteride 5 mg PO .Sat 90 days glipizide ER 2.5 mg PO DAILY sennosides (senna) 17.2 mg (2 x 8.6 mg) PO BEDTIME PRN 30 days tamsulosin 0.8 mg (2 x 0.4 mg) PO DAILY 90 days Tradjenta (linagliptin) 5 mg PO DAILY 90 days NS valsartan 80 mg PO DAILY 90 days HPI Comments Details: Nasir is a pleasant male. He is seen for the following urologic conditions - BPH - urinary retention English translation provided by qualified medical oncologist Good response to finasteride Slight PSA rise Happy with urination - PVR 0 cc Good stream and minimal nocturia Diabetic Repeat PSA with testosterone and bladder ultrasound in six-month Lower urinary tract symptoms Previously seen and had been treated with tamsulosin for trilobar hypertrophy Offered prostate procedure in the past Current medication includes combination finasteride and tamsulosin 0.8 mg PSA 01/08 5.6, 07/09 2.9, 01/09 1.9, 01/10 1.9, 01/11 2.5 Review in 6 months [facility], [facility] Medical History Insomnia Chronic kidney disease, stage III (moderate) Vitamin D deficiency BPH associated with nocturia Chronic constipation Benign prostatic hyperplasia with lower urinary tract symptoms Overweight (BMI 25.0-29.9) Pure hypercholesterolemia Benign essential hypertension Type 2 diabetes mellitus with diabetic chronic kidney disease Surgical History History of colonoscopy History of hemorrhoidectomy History of inguinal hernia repair Family History Father No problems noted. Mother Medical history unknown Social History Household Members: Spouse Housing: Apartment Alcohol intake: never Patient Tobacco Use Status: Never used Tobacco e-Cigarette/Vaping Use: Never Used Second Hand Smoke Exposure: Yes service: No Current occupational status: retired Cognitive needs: No Hearing needs: No Vision needs: Yes Review of Systems Const Denies chills and Denies fever(s) Card Reports no additional complaints and Denies syncope Resp Denies cough GI Denies abdominal pain and Denies heartburn Reports as per HPI and Denies change in libido Neuro Denies syncope Psych Denies change in libido Endo Denies change in libido Physical Exam Const General: cooperative, healthy appearing, comfortable and no acute distress Orientation/consciousness: patient oriented x3 HEENT Face and sinus: Yes normal facial exam Mouth: moist mucous membranes Neck Neck: Yes normal visual inspection, Yes full ROM and Yes trachea midline Chest Chest palpation & inspection: normal inspection of the chest Resp Effort & Inspection: normal respiratory effort, able to speak in complete sentences and no respiratory distress GI Inspection: Yes normal to inspection Back/Spine/Pelvis Cervical Spine: normal cervical lordosis Thoracic/Lumbar Spine: thoracic and lumbar spine normal to inspection Skin General skin exam: no rashes or lesions noted Neuro General: patient oriented x3, gait normal, tone normal and moves all extremities Extrem General: Yes normal to inspection and Yes capillary refill normal Assessment & Plan Assessment & Plan (1) Enlarged prostate: Code(s): N40.0 - Benign prostatic hyperplasia without lower urinary tract symptoms Category: Medical (2) Benign prostatic hyperplasia with lower urinary tract symptoms: Code(s): N40.1 - Benign prostatic hyperplasia with lower urinary tract symptoms Category: Medical Qualifiers: Lower urinary tract symptom detail: urinary retention Qualified Code(s): N40.1 - Benign prostatic hyperplasia with lower urinary tract symptoms; R33.8 - Other retention of urine Plan Six-month follow-up PSA and bladder ultrasound Orders: Orders Prostate Specific Antigen 6 Months N40.1 - Benign prostatic hyperplasia with lower urinary tract symptoms, R35.1 - Nocturia US bladder 6 Months N40.1 - Benign prostatic hyperplasia with lower urinary tract symptoms, R35.1 - Nocturia, R39.12 - Poor urinary stream Patient Instructions: Imaging studies, laboratory and physical exam results were discussed and reviewed in detail. No major barriers to patient understanding were identified. An opportunity to ask questions regarding the treatment plan was provided. All questions were answered. The patient expressed understanding and agreement with the above treatment plan. The patient is aware they should contact our office by phone for worsening of their current condition or the appearance of new urologic symptoms. Compliance is encouraged with any medications and followup testing that is ordered. It is a privilege to participate in the urologic care of your patient. If you have any questions or concerns regarding treatment for the above conditions, or other urologic issues, please do not hesitate to contact me. The office telephone contact is [phone]. This note is constructed using voice recognition software. While every effort has been made to ensure accuracy relay mechanic errors may have been included. Yours sincerely, Dr Henrik Ramsey MD, [facility] - Urology Providers of Expert, Compassionate Care for the Genitourinary System Coding Level of Care Code Est Pt Level 4 (58840) Diagnoses Enlarged prostate N40.0 Benign prostatic hyperplasia with urinary retention N40.1; R33.8 Lower urinary tract symptom detail: urinary retention
== END 2024-01-08 14:02 | disposition home or self-care (01) ==
PROVIDERS: PCP Internal Medicine; Visit Provider Urology
DX: N40.0 Benign prostatic hyperplasia without lower urinary tract symptoms (principal); N40.1 Benign prostatic hyperplasia with lower urinary tract symptoms; R33.8 Other retention of urine
CPT/HCPCS: 99214

== ENCOUNTER → 2024-01-08 13:14 | Outpatient (BNVA) | payer MEDICARE, MEDICAID, SELFPAY | PROVIDERS: PCP Internal Medicine; Visit Provider Urology | DX: N40.1 Benign prostatic hyperplasia with lower urinary tract symptoms (principal); N13.8 Other obstructive and reflux uropathy; R33.8 Other retention of urine | CPT/HCPCS: 99212 ==

== ENCOUNTER 2024-04-15 07:28 | Outpatient (REF) | payer MEDICARE, MEDICAID, SELFPAY ==
[2024-04-15 07:49] LABS: MANUAL DIFF FLAG NO
[2024-04-15 08:11] LABS: Basophils Absolute Auto 0.1 X10*3/uL (0.0-0.2); Basophils Percent Auto 0.8 % (0-2); Eosinophils Absolute Auto 0.1 X10*3/uL (0.0-0.4); Eosinophils Percent Auto 0.8 % (0-4); Hemoglobin 12.4 g/dl (14.0-18.0); Imm Gran Abs Auto 0.02 X10*3/uL (0.00-0.03); Imm Gran Pct Auto 0.3 % (0.0-0.4); Mean Corpuscular HGB Conc 32.6 g/dl (31.0-36.0); Mean Corpuscular Hemoglobin 27.3 pg (27.0-33.0); Mean Corpuscular Volume 83.5 fL (80.0-98.0); Mean Platelet Volume 10.8 fL (9.4-12.4); Monocytes Absolute Auto 0.6 X10*3/uL (0.1-1.2); Monocytes Percent Auto 7.4 % (2-11); Neutrophils Absolute Auto 3.1 x10*3/uL (2.0-8.3); Neutrophils Percent Auto 39.7 % (45-73); Platelet Count 171 X10*3/uL (160-400); Red Blood Count 4.55 X10*6/uL (4.60-5.80); Red Cell Distribution Width 14.6 % (11.0-16.0); White Blood Count 7.7 X10*3/uL (4.8-10.8)
[2024-04-15 08:19] LABS: Estimated Average Glucose 143 mg/dL; Hemoglobin A1c % 6.6 % (<6.0)
[2024-04-15 08:20] LABS: Appearance Urine Clear; Color Urine Yellow; Glucose Urine UA Negative (Negative); Leukocyte Esterase Urine Negative (Negative); Nitrite Urine Negative (Negative); Urine Blood Negative (Negative); Urine Ketones Negative (Negative); Urine Protein Negative (Neg-Trace)
[2024-04-15 08:40] LABS: Creatinine Urine 223.88 mg/dL; Microalbum/Creatinine Ratio Ur 5.3 ug/mg cr (<30)
[2024-04-15 08:54] LABS: Alanine Aminotransferase 12 U/L (0-40); Albumin Level 4.2 g/dL (3.5-5.0); Alkaline Phosphatase 74 U/L (39-117); Anion Gap 12 (12-20); Aspartate Amino Transferase 22 U/L (5-37); Bilirubin Total 0.7 mg/dL (0.0-1.0); Blood Urea Nitrogen 20 mg/dL (9-16); Calcium 9.6 mg/dL (8.4-10.2); Carbon Dioxide 26 mmol/L (22-29); Chloride 109 mmol/L (96-108); Cholesterol 165 mg/dL (<200); Estimated Glomerular Filt Rate 56; Glucose Fasting 106 mg/dL (60-99); HDL Cholesterol 57 mg/dL (>40); LDL Cholesterol Calculated 94 mg/dL (<100); Potassium 4.4 mmol/L (3.3-5.1); Sodium 143 mmol/L (135-145); Total Protein 7.7 g/dL (6.5-8.0); Triglycerides 71 mg/dL (<150)
[2024-04-15 09:13] LABS: TSH reflex Free T4 0.89 uIU/mL (0.32-4.0)
[2024-04-15 09:17] LABS: Folate 9.8 ng/mL (> or = 4.0); Vitamin B12 471 pg/mL (200-900)
== END 2024-04-15 07:29 | disposition home or self-care (01) ==
LOC: HO.LAB 07:28
PROVIDERS: PCP Internal Medicine; Visit Provider Internal Medicine
DX: E78.00 Pure hypercholesterolemia, unspecified (principal); E11.9 Type 2 diabetes mellitus without complications; E55.9 Vitamin D deficiency, unspecified; E53.8 Deficiency of other specified B group vitamins; D64.9 Anemia, unspecified; R30.0 Dysuria
CPT/HCPCS: 36415; 80053; 80061; 81003; 82043; 82306; 82570; 82607; 82746; 83036; 84443; 85025

== ENCOUNTER 2024-06-17 12:52 | Outpatient (AMB) | payer MEDICARE, MEDICAID, SELFPAY ==
[2024-06-17 12:59] VITALS: BP 160/100; PULSE 83; O2SAT 95; BMI 26.5
--- NOTE | 2024-06-17 12:59 | MHC.PC.OV ---
Vital Signs 06/17/24 12:59 Height 5 ft 8 in Weight 174 lb BMI 26.5 BP 160/100 H Blood Pressure Location Lt brachial Position Sitting Pulse 83 Pulse Source Pulse Oximeter Pulse Oximetry (%) 95 Oxygen Delivery Method Room Air Intake Visit Reasons: 4 month follow up Care Support Representative Required: No Accompanied by: Self / Same As Patient Allergies metformin [METFORMIN] Adverse Reaction (Mild, Verified 06/17/24 13:24) STOMACH UPSET,DIARRHEA Medication List - Last Reconciled 06/17/24 by Jimmy Hurtado MD atorvastatin 40 mg PO DAILY 90 days blood sugar diagnostic (FreeStyle Lite Strips) As directed - test 1 to 2 times a day cholecalciferol (vitamin D3) 50 mcg PO DAILY 90 days finasteride 5 mg PO .Sat 90 days glipizide ER 2.5 mg PO DAILY sennosides (senna) 17.2 mg (2 x 8.6 mg) PO BEDTIME PRN 30 days tamsulosin 0.8 mg (2 x 0.4 mg) PO DAILY Tradjenta (linagliptin) 5 mg PO DAILY 90 days NS valsartan 80 mg PO DAILY 90 days Tobacco use date assessed: 06/17/24 Fall risk assessment: No Falls in past year Last assessed Fall Risk: 06/17/24 Dental Screening Dental Screen Date: 06/17/24 Did you have a dental visit in the last 12 months?: No Did you have a dental problem in the last 6 months where you did not have access to dental care?: No Was dental information given to patient?: No HPI 4 month follow up HPI Details Patient comes in today for his follow-up visit of his DM, HTN, CKD, hyperlipidemia States that he feels okay His blood pressure is high today as he did not take his BP med this morning because he is fasting He denies any headaches or dizziness Denies any chest pains, no increased shortness of breath No nausea/ vomiting, no abdominal pain No change in bowel habits noted He had his follow up labs done a few weeks ago - to discuss his results [facility] Medical History Insomnia Chronic kidney disease, stage III (moderate) Vitamin D deficiency BPH associated with nocturia Chronic constipation Benign prostatic hyperplasia with lower urinary tract symptoms Overweight (BMI 25.0-29.9) Pure hypercholesterolemia Benign essential hypertension Type 2 diabetes mellitus with diabetic chronic kidney disease Surgical History History of colonoscopy History of hemorrhoidectomy History of inguinal hernia repair Family History Father No problems noted. Mother Medical history unknown Social History Household Members: Spouse Housing: Apartment Alcohol intake: never Patient Tobacco Use Status: Never used Tobacco e-Cigarette/Vaping Use: Never Used Second Hand Smoke Exposure: Yes service: No Current occupational status: retired Cognitive needs: No Hearing needs: No Vision needs: Yes Questionnaire PHQ-9 Over the last 2 weeks, how often have you been bothered by any of the following problems? 1. Little interest or pleasure in doing things: not at all 2. Feeling down, depressed, or hopeless: not at all 3. Trouble falling or staying asleep, or sleeping too much: not at all 4. Feeling tired or having little energy: not at all 5. Poor appetite or overeating: not at all 6. Feeling bad about yourself - or that you are a failure or have let yourself or your family down: not at all 7. Trouble concentrating on things, such as reading the newspaper or watching television: not at all 8. Moving or speaking so slowly that other people could have noticed. Or the opposite - being so fidgety or restless that you have been moving around a lot more than usual: not at all 9. Thoughts that you would be better off or of hurting yourself in some way: not at all Total score: 0 Depression Screening Interpretation: Negative Depression Screening Done: Yes [id number] - PHQ-9 Billing: Yes Source: Developed by Drs. Vasile Wren, Bette Chen, Jeremiah Leija and colleagues, with an educational danis from [employer]. Thrive Questionnaire Date Thrive assessed: 06/17/24 I am a: Patient What is your living situation today?: I have a steady place to live Within the past 12 months, did the food you bought not last and you didn't have the money to get more?: Never true Within the past 12 months, did you worry whether your food would run out before you got money to buy more?: Never true Do you have trouble paying for medicines?: No Do you have trouble getting transportation to medical appointments?: No Do you have trouble paying your heating and electricity bill?: No Do you have trouble taking care of your child, family member or friend?: No Do you have trouble with day-to-day activities such as bathing, preparing meals, shopping, managing finances, etc.?: No Are you currently unemployed and looking for a job?: Yes Are you interested in more education?: No Please select the resources that you would like help with: None Currently or been in a relationship where the following occur: No concerns reported THRIVE Score: 0 AUDIT C Alcohol Use Questionnaire (AUDIT-C) 1. How often do you have a drink containing alcohol?: Never 3. How often do you have six or more drinks on one occasion?: Never Total Score: 0 Score Reviewed/Action Taken: Yes DILLON-7 AMB Questionnaire DILLON-7 Date DILLON - 7 assessed: 06/17/24 Feeling nervous, anxious, or on edge: 1 = Several days Not being able to stop or control worryin = Not at all Worrying too much about different things: 0 = Not at all Trouble relaxin = Not at all Being so restless that it is hard to sit still: 0 = Not at all Becoming easily annoyed or irritable: 0 = Not at all Feeling afraid as if something awful might happen: 0 = Not at all Total DILLON-7 score (0-4 normal; 5-9 mild; 10-14 moderate; 15-21 severe): 1 Source: Developed by Drs. Vasile Wren, Bette Chen, Jeremiah Leija and colleagues, with an educational danis from [employer]. Review of Systems Const Denies chills, Denies fatigue, Denies fever(s) and Denies headache(s) ENT Denies dysphagia, Denies dizziness, Denies otalgia, Denies headache(s), Denies neck pain, Denies odynophagia and Denies sore throat Card Denies chest pain, Denies palpitations and Denies dyspnea Resp Denies chest congestion, Denies cough and Denies dyspnea GI Denies abdominal pain, Denies constipation, Denies dysphagia, Denies heartburn, Denies diarrhea, Denies nausea, Denies odynophagia and Denies vomiting Denies hematuria, Reports difficulty urinating (at times - Rx helps), Denies dysuria, Denies nocturia and Denies urinary frequency Musc Denies back pain, Denies arthralgias and Denies neck pain Skin/Breast Denies rash Neuro Denies dizziness and Denies headache(s) Endo Denies fatigue and Denies palpitations Physical exam (Primary Care) Vital Signs: Last Vital Signs Pulse 83 06/17/24 12:59 BP 160/100 H 06/17/24 12:59 Pulse Ox 95 06/17/24 12:59 Oxygen Delivery Method Room Air 06/17/24 12:59 BMI result Body Mass Index 26.5 Tobacco/Smoking Status: Tobacco use Status Tobacco use date assessed 06/17/24 06/17/24 13:03 Patient Tobacco Use Status Never used Tobacco 06/17/24 13:03 e-Cigarette/Vaping Use Never Used 06/17/24 13:03 PHQ-9: PHQ-9 Score PHQ-9: Total score 0 06/17/24 13:03 Depression Screening Interpretation: Negative Thrive Assessment: Date of Thrive Assessment Date Thrive assessed 06/17/24 06/17/24 13:03 Currently or been in a relationship where the following occur: No concerns reported Const General: no acute distress and alert HENMT Ears: TM's normal bilaterally and EAC's normal Throat: Yes posterior oropharynx normal and Yes tonsils normal (no TP congestion noted) Neck Neck: Yes no lymphadenopathy and Yes supple Thyroid: Thyroid normal Resp Auscultation: clear to auscultation bilaterally, no rales and no wheezes Cardio Rate: regular rate Rhythm: abnormal rhythm with ectopic beats Heart sounds: no murmurs GI Palpation (GI): Soft to palpation and nontender Auscultation: normal bowel sounds General: Yes no CVA tenderness Back/Spine/Pelvis Back: no CVA tenderness Thoracic/Lumbar Spine: No lumbar spinal tenderness Skin Rashes: no rashes Extrem General: Yes no clubbing, cyanosis or edema Results Reviewed Results Reviewed: Laboratory Tests 04/15/24 04/15/24 07:48 07:50 WBC 7.7 Hgb 12.4 L Hct 38.0 L Plt Count 171 Sodium 143 Potassium 4.4 Creatinine 1.25 Estimated GFR 56 Fasting Glucose 106 H Hemoglobin A1c % 6.6 H Calcium 9.6 AST 22 ALT 12 Triglycerides 71 Cholesterol 165 LDL Cholesterol, Calc 94 HDL Cholesterol 57 Vitamin B12 471 25-OH Vitamin D Total 50.0 TSH 0.89 Ur Specific [place] 1.020 Urine Protein Negative Urine Glucose (UA) Negative Urine Blood Negative Urine Nitrite Negative Ur Leukocyte Esterase Negative Microalb/Creat Ratio 5.3 Coding Level of Care Code Est Pt Level 4 (19167) Complex EM visit Add On G2211 Diagnoses Pure hypercholesterolemia E78.00 Type 2 diabetes mellitus with stage 2 chronic kidney disease, without long-term current use of insulin E11.22; N18.2 Diabetes mellitus group home insulin use: without group home use Chronic kidney disease stage: stage 2 (mild) Benign essential hypertension I10 Stage 3a chronic kidney disease N18.31 Chronic kidney disease stage 3 subtype: stage 3a (GFR 45-59) Ectopic beats I49.49 Elevated LFTs R79.89 Vitamin D deficiency E55.9 Anemia, unspecified type D64.9 Anemia type: unspecified type Constipation, unspecified constipation type K59.00 Constipation type: unspecified constipation type Benign prostatic hyperplasia with urinary retention N40.1; R33.8 Lower urinary tract symptom detail: urinary retention Insomnia, unspecified type G47.00 Insomnia type: unspecified Overweight (BMI 25.0-29.9) E66.3 Additional Codes PHQ-9 - 18079 - PHQ-9 Billing: Yes ([id number]) Assessment & Plan Assessment & Plan (1) Pure hypercholesterolemia: Code(s): E78.00 - Pure hypercholesterolemia, unspecified Category: Medical Plan: Results of his labs done a few weeks ago reviewed and discussed with patient Reinforced low cholesterol diet Continue Atorvastatin 40 mg QD Will recheck his labs and fasting lipids in 4 months for follow up (2) Type 2 diabetes mellitus with diabetic chronic kidney disease: Code(s): E11.22 - Type 2 diabetes mellitus with diabetic chronic kidney disease Category: Medical Qualifiers: Diabetes mellitus 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 Chronic kidney disease stage: stage 2 (mild) Qualified Code(s): E11.22 - Type 2 diabetes mellitus with diabetic chronic kidney disease; N18.2 - Chronic kidney disease, stage 2 (mild) Plan: His HgbA1c was at 6.6% on his labs done a few weeks ago (was previously at 6.7% a few months ago) - goal is <7.0% Reinforced diabetic diet Continue Tradjenta 5 mg QD and Glipizide ER 2.5 mg QD (3) Benign essential hypertension: Code(s): I10 - Essential (primary) hypertension Category: Medical Plan: Reinforced low sodium diet - goal is systolic BP of at least 130 mm or less Continue Valsartan 80 mg QD - his blood pressure is high today as patient states that he did not take his BP med this morning as he is fasting He is advised that taking his medication(s) with water should not affect or break his fast so he should be aware of this and not skip taking his meds as much as possible in the future Patient is reminded to continue monitoring his blood pressure regularly (4) Chronic kidney disease, stage III (moderate): Code(s): N18.30 - Chronic kidney disease, stage 3 unspecified Category: Medical Qualifiers: Chronic kidney disease stage 3 subtype: stage 3a (GFR 45-59) Qualified Code(s): N18.31 - Chronic kidney disease, stage 3a Plan: His renal function again appears stable on his labs done a few weeks ago Reinforced strict control of his diabetes and blood pressure to slow down the decline in his renal function Will continue to monitor his renal function and GFR closely (5) Ectopic beats: Code(s): I49.49 - Other premature depolarization Category: Medical Plan: His most recent EKG done back in 03/2023 showed sinus rhythm with occasional PVCs and nonspecific intraventricular conduction block Echocardiogram revealed normal left ventricular systolic function with calculated ejection fraction at 57% and no obvious valvular pathology seen Patient is reassured that no further evaluation or workups are indicated based on his recent findings, especially as he is completely asymptomatic from a cardiac standpoint (6) Elevated LFTs: Code(s): R79.89 - Other specified abnormal findings of blood chemistry Category: Medical Plan: Resolved; his LFTs have remained normal on his recent labs These were most likely related to his weight Patient denies any abdominal pain/symptoms and states that he does NOT drink alcohol Will continue to monitor his LFTs regularly (7) Vitamin D deficiency: Code(s): E55.9 - Vitamin D deficiency, unspecified Category: Medical Plan: Continue Vitamin D3 2000 units QD (8) Anemia: Code(s): D64.9 - Anemia, unspecified Category: Medical Qualifiers: Anemia type: unspecified type Qualified Code(s): D64.9 - Anemia, unspecified Plan: Stable, although his H/H are still slightly under the normal cutoff at 12.4/38.0 His serum iron levels were normal when they were previously checked Colonoscopy done a few years ago in 03/2019 came out normal Hgb electrophoresis was also checked a few months ago - test came back normal as well Will continue to monitor his CBC regularly (9) Constipation: Code(s): K59.00 - Constipation, unspecified Category: Medical Qualifiers: Constipation type: unspecified constipation type Qualified Code(s): K59.00 - Constipation, unspecified Plan: Improved; continue Senna 8.6 mg 1 to 2 tablets QD PRN Reinforced increased oral fluids and dietary fiber (10) Benign prostatic hyperplasia with lower urinary tract symptoms: Code(s): N40.1 - Benign prostatic hyperplasia with lower urinary tract symptoms Category: Medical Qualifiers: Lower urinary tract symptom detail: urinary retention Qualified Code(s): N40.1 - Benign prostatic hyperplasia with lower urinary tract symptoms; R33.8 - Other retention of urine Plan: Continue Tamsulosin 0.8 mg Q HS and Finasteride 5 mg TIW (dose was lowered by urology) Follow up with urology as scheduled? (11) Insomnia: Code(s): G47.00 - Insomnia, unspecified Category: Medical Qualifiers: Insomnia type: unspecified Qualified Code(s): G47.00 - Insomnia, unspecified Plan: Resolved; sleep hygiene reinforced He was prescribed Trazodone 50 mg Q HS PRN previously but patient states that he never really took a lot of this and has not taken this in months now - states that he has been sleeping well without any Rx so far lately (12) Overweight (BMI 25.0-29.9): Code(s): E66.3 - Overweight Category: Medical Plan: Reinforced diet/exercise as tolerated/lose weight Plan Follow up in 4 months Orders: Orders Complete Blood Count Auto Diff 4 Months D64.9 - Anemia, unspecified Comprehensive [place]. Panel Fast 4 Months E78.00 - Pure hypercholesterolemia, unspecified Lipid Panel 4 Months E78.00 - Pure hypercholesterolemia, unspecified Microalbumin, Random (w Creat) 4 Months E11.9 - Type 2 diabetes mellitus without complications Vitamin B12 and Folate 4 Months E53.8 - Deficiency of other specified B group vitamins TSH reflex Free T4 4 Months E78.00 - Pure hypercholesterolemia, unspecified Hemoglobin A1c 4 Months E11.9 - Type 2 diabetes mellitus without complications Vitamin D 25-OH Total 4 Months E55.9 - Vitamin D deficiency, unspecified UA CC w/rflx Micro + Cult 4 Months R30.0 - Dysuria
== END 2024-06-17 13:30 | disposition home or self-care (01) ==
LOC: HO.HMCH 12:53
PROVIDERS: PCP Internal Medicine; Visit Provider Internal Medicine
DX: I12.9 Hypertensive chronic kidney disease with stage 1 through stage 4 chronic kidney disease, or unspecified chronic kidney disease (principal); E11.22 Type 2 diabetes mellitus with diabetic chronic kidney disease; N18.31 Chronic kidney disease, stage 3a; E78.00 Pure hypercholesterolemia, unspecified; I49.49 Other premature depolarization; N18.2 Chronic kidney disease, stage 2 (mild); R79.89 Other specified abnormal findings of blood chemistry; E55.9 Vitamin D deficiency, unspecified; D64.9 Anemia, unspecified; K59.00 Constipation, unspecified; N40.1 Benign prostatic hyperplasia with lower urinary tract symptoms; R33.8 Other retention of urine

== ENCOUNTER → 2024-06-17 12:52 | Outpatient (BNVA) | payer MEDICARE, MEDICAID, SELFPAY | PROVIDERS: PCP Internal Medicine; Visit Provider Internal Medicine | DX: E78.00 Pure hypercholesterolemia, unspecified (principal); I12.9 Hypertensive chronic kidney disease with stage 1 through stage 4 chronic kidney disease, or unspecified chronic kidney disease; E11.22 Type 2 diabetes mellitus with diabetic chronic kidney disease; N18.31 Chronic kidney disease, stage 3a; I49.49 Other premature depolarization; R79.89 Other specified abnormal findings of blood chemistry; E55.9 Vitamin D deficiency, unspecified; D64.9 Anemia, unspecified; K59.00 Constipation, unspecified; N40.1 Benign prostatic hyperplasia with lower urinary tract symptoms; R33.8 Other retention of urine; G47.00 Insomnia, unspecified; E66.3 Overweight; Z68.26 Body mass index [BMI] 26.0-26.9, adult; Z71.3 Dietary counseling and surveillance | CPT/HCPCS: 96127; 99212 ==

== ENCOUNTER 2024-06-25 08:39 | Outpatient (REF) | payer MEDICARE, MEDICAID, SELFPAY ==
[2024-06-25 10:11] LABS: Prostate Specific Antigen 2.53 ng/mL (<0.05-4.0)
== END 2024-06-25 08:40 | disposition home or self-care (01) ==
LOC: HO.LAB 08:39
PROVIDERS: PCP Internal Medicine; Visit Provider Urology
DX: N40.1 Benign prostatic hyperplasia with lower urinary tract symptoms (principal); N13.8 Other obstructive and reflux uropathy; R35.1 Nocturia; Z12.5 Encounter for screening for malignant neoplasm of prostate
CPT/HCPCS: 36415; 84153

== ENCOUNTER 2024-06-27 02:40 | Emergency (ER) | payer MEDICARE, MEDICAID, SELFPAY ==
[2024-06-27 02:44] VITALS: BP 193/74; PULSE 90; RESP 16; TEMP 36.3; O2SAT 99; BMI 26.6
--- NOTE | 2024-06-27 03:05 | PC.NURSE ---
Pt is a&ox4, no signs of distress. Pt reports he woke up at 0000 and was unable to urinate Pt reports he takes Tamsulosin but feels it has not been working Pt reports pain only when attempting to urinate that is 11/27. Plan of care ongoing.
[2024-06-27 03:17] LABS: MANUAL DIFF FLAG NO
[2024-06-27 03:19] LABS: Basophils Absolute Auto 0.1 X10*3/uL (0.0-0.2); Basophils Percent Auto 1.3 % (0-2); Eosinophils Absolute Auto 0.1 X10*3/uL (0.0-0.4); Eosinophils Percent Auto 1.3 % (0-4); Hematocrit 37.1 % (42.0-52.0); Hemoglobin 12.3 g/dl (14.0-18.0); Imm Gran Abs Auto 0.02 X10*3/uL (0.00-0.03); Imm Gran Pct Auto 0.3 % (0.0-0.4); Lymphocytes Absolute Auto 2.3 X10*3/uL (1.2-4.9); Mean Corpuscular HGB Conc 33.2 g/dl (31.0-36.0); Mean Corpuscular Hemoglobin 27.5 pg (27.0-33.0); Mean Corpuscular Volume 82.8 fL (80.0-98.0); Mean Platelet Volume 10.7 fL (9.4-12.4); Monocytes Absolute Auto 0.5 X10*3/uL (0.1-1.2); Monocytes Percent Auto 8.1 % (2-11); Platelet Count 136 X10*3/uL (160-400); Red Blood Count 4.48 X10*6/uL (4.60-5.80); Red Cell Distribution Width 14.5 % (11.0-16.0); White Blood Count 5.9 X10*3/uL (4.8-10.8)
--- NOTE | 2024-06-27 03:24 | ED.MALEGU ---
HPI - Male Genitourinary General Chief complaint: Urogenital-Male Stated complaint: unable to urinate Time Seen by Provider: 06/27/24 03:24 Source: patient Mode of arrival: ambulatory Limitations: no limitations History of Present Illness ED Provider: HPI Narrative: Patient's history of BPH with history of urinary retention 1 year ago on tamsulosin noticed decreased urination since last night unable to urinate since 22:00 no change in medication feels discomfort lower abdomen no nausea no vomiting no flank pain bladder scan showed urine more than 450 cc Related Data Previous Rx's ?Medication ?Instructions ?Recorded blood sugar diagnostic (FreeStyle #100 ea 06/22/20 Lite Strips) sennosides 8.6 mg tablet (senna) 17.2 mg (2 x 8.6 mg) PO BEDTIME 10/16/21 PRN constipation 30 days #60 tabs finasteride 5 mg tablet 5 mg PO .Sat 90 days #90 12/10/23 tabs cholecalciferol (vitamin D3) 50 50 mcg PO DAILY 90 days #90 caps 12/11/23 mcg (2,000 unit) capsule Tradjenta 5 mg tablet (linagliptin) 5 mg PO DAILY 90 days #90 tabs 02/02/24 glipizide 2.5 mg tablet, extended 2.5 mg PO DAILY #90 tabs 02/08/24 release 24 hr tamsulosin 0.4 mg capsule 0.8 mg (2 x 0.4 mg) PO DAILY #180 02/14/24 caps atorvastatin 40 mg tablet 40 mg PO DAILY 90 days #90 tabs 05/15/24 valsartan 80 mg tablet 80 mg PO DAILY 90 days #90 tabs 05/15/24 Allergies Allergy/AdvReac Type Severity Reaction Status Date / Time metformin [METFORMIN] AdvReac Mild STOMACH Verified 06/27/24 02:47 UPSET,DIARRHEA Review of Systems Review of Systems: Yes all other systems are reviewed and are negative [facility] Past Medical History Medical History Insomnia Chronic kidney disease, stage III (moderate) Vitamin D deficiency BPH associated with nocturia Chronic constipation Benign prostatic hyperplasia with lower urinary tract symptoms Overweight (BMI 25.0-29.9) Pure hypercholesterolemia Benign essential hypertension Type 2 diabetes mellitus with diabetic chronic kidney disease Surgical History History of colonoscopy History of hemorrhoidectomy History of inguinal hernia repair Family History Family History Father No problems noted. Mother Medical history unknown Social History Social History Household Members: Spouse Housing: Apartment Alcohol intake: never Patient Tobacco Use Status: Never used Tobacco Smoked in Last 30 Days: No e-Cigarette/Vaping Use: Never Used Second Hand Smoke Exposure: Yes Use of substances other than those prescribed or required for medical reasons: No Advance Directives: No Advance Directives Information Provided: No Do you have a plan to hurt others: No Plan service: No Current occupational status: retired Cognitive needs: No Hearing needs: No Vision needs: Yes Physical Exam Vital Signs: Vital Signs: Last Vital Signs Temp 97.4 F 06/27/24 05:54 Pulse 90 06/27/24 05:54 Resp 16 06/27/24 05:54 BP 193/74 H 06/27/24 05:54 Pulse Ox 99 06/27/24 05:54 O2 Del Method Room Air 06/27/24 05:54 BMI result Body Mass Index 26.6 Appearance: Alert. Oriented X3. No acute distress. Eyes: PERRLA, No Nystagmus ENT: Pharynx normal. Oral Mucosa moist Neck: Normal inspection. Neck supple. CVS: Normal heart rate and rhythm. Pulses normal. Respiratory: No respiratory distress. Equal air entry bilateral, no wheezing/rales/rhonchi Abdomen: Soft and nontender. Bowel sounds are present, no mass palpable, no CVA tenderness bladder scan showed urine more than 450cc Skin: Skin warm and dry. Normal skin color. Normal skin turgor. Extremities: No lower extremity edema. No calf tenderness Neuro: Oriented X 3. No motor deficit. No sensory deficit.No cerebellar signs , cranial nerves II-XII intact Medical Decision Making Medical Decision Making MDM Narrative: Patient has been Acute urinary retention Bourgeois catheter was placed UA was negative Lab Data MDM Lab Attestation statement: I reviewed the patient's lab results. 06/27/24 03:12 06/27/24 03:12 Labs: Lab Results 06/27/24 06/27/24 Range/Units 03:12 03:57 WBC 5.9 (4.8-10.8) X10*3/uL RBC 4.48 L (4.60-5.80) X10*6/uL Hgb 12.3 L (14.0-18.0) g/dl Hct 37.1 L (42.0-52.0) % MCV 82.8 (80.0-98.0) fL MCH 27.5 (27.0-33.0) pg MCHC 33.2 (31.0-36.0) g/dl RDW 14.5 (11.0-16.0) % Plt Count 136 L (160-400) X10*3/uL MPV 10.7 (9.4-12.4) fL Immature Gran % (Auto) 0.3 (0.0-0.4) % Neut % (Auto) 50.0 (45-73) % Lymph % (Auto) 39.0 (20-40) % [place] % (Auto) 8.1 (2-11) % Eos % (Auto) 1.3 (0-4) % Baso % (Auto) 1.3 (0-2) % Lymph # (Auto) 2.3 (1.2-4.9) X10*3/uL [place] # (Auto) 0.5 (0.1-1.2) X10*3/uL Eos # (Auto) 0.1 (0.0-0.4) X10*3/uL Baso # (Auto) 0.1 (0.0-0.2) X10*3/uL Abs Immat Gran (auto) 0.02 (0.00-0.03) X10*3/uL Absolute Neuts (auto) 3.0 (2.0-8.3) x10*3/uL Absolute Nucleated RBC 0.000 (0.0-0.012) X10*3/uL Nucleated RBC % (auto) 0.0 (0.0-0.2) /100WBC Sodium 141 (135-145) mmol/L Potassium 4.0 (3.3-5.1) mmol/L Chloride 107 (96-108) mmol/L Carbon Dioxide 24 (22-29) mmol/L Anion Gap 14 (12-20) BUN 21 H (9-16) mg/dL Creatinine 1.24 (0.5-1.4) mg/dL Estim Creat Clear Calc 50.5 Estimated GFR 57 Random Glucose 123 H (60-115) mg/dL Calcium 9.4 (8.4-10.2) mg/dL Total Bilirubin 0.6 (0.0-1.0) mg/dL AST 23 (5-37) U/L ALT 7 (0-40) U/L Alkaline Phosphatase 60 (39-117) U/L Total Protein 6.9 (6.5-8.0) g/dL Albumin 4.2 (3.5-5.0) g/dL Urine Color Yellow Urine Appearance Clear Urine pH 6.5 (5.0-9.0) Ur Specific [place] 1.010 (1.005-1.025) Urine Protein Negative (Neg-Trace) mg/dL Urine Glucose (UA) Negative (Negative) mg/dL Urine Ketones Negative (Negative) mg/dL Urine Blood Small (1+) H (Negative) Urine Nitrite Negative (Negative) Ur Leukocyte Esterase Negative (Negative) Urine RBC 6-10 H (0-2) /HPF Urine WBC 0-5 (0-5) /HPF Ur Squamous Epith Cells 0-2 (0-2) /HPF Urine Bacteria None Seen (None Seen) Hyaline Casts 0-2 (0-2) /LPF Discharge Plan Discharge Clinical Impression: Acute retention of urine Benign prostatic hyperplasia with lower urinary tract symptoms Qualifiers: Lower urinary tract symptom detail: urinary retention Qualified Code(s): N40.1 - Benign prostatic hyperplasia with lower urinary tract symptoms Patient Disposition: Home, Self-Care Instructions: Urinary Retention in Men (ED), Bourgeois Catheter Placement and Care (ED) Additional Instructions: Care of the Bourgeois catheter as advised Follow up with your urologist Prescriptions: No Action finasteride 5 mg tablet 5 mg PO .Sat 90 Days Qty: 90 1RF cholecalciferol (vitamin D3) 50 mcg (2,000 unit) capsule 50 mcg PO DAILY 90 Days Qty: 90 3RF Tradjenta 5 mg tablet 5 mg PO DAILY 90 Days Qty: 90 1RF glipizide 2.5 mg tablet extended release 24hr 2.5 mg PO DAILY Qty: 90 1RF tamsulosin 0.4 mg capsule 0.8 mg PO DAILY Qty: 180 1RF valsartan 80 mg tablet 80 mg PO DAILY 90 Days Qty: 90 3RF atorvastatin 40 mg tablet 40 mg PO DAILY 90 Days Qty: 90 1RF (DME) FreeStyle Lite Strips Strip See Rx Instructions .ROUTE .MEDSUPPLY Qty: 100 12RF Rx Instructions: As directed - test 1 to 2 times a day sennosides [senna] 8.6 mg tablet 17.2 mg PO BEDTIME PRN (Reason: constipation) 30 Days Qty: 60 5RF Interventions: ED Discharge Assessment Last Done: 06/27/24 05:54 Discharge Date/Time: 06/27/24 05:54 Print Language: Swedish
[2024-06-27 03:44] LABS: Alanine Aminotransferase 7 U/L (0-40); Albumin Level 4.2 g/dL (3.5-5.0); Alkaline Phosphatase 60 U/L (39-117); Anion Gap 14 (12-20); Aspartate Amino Transferase 23 U/L (5-37); Bilirubin Total 0.6 mg/dL (0.0-1.0); Blood Urea Nitrogen 21 mg/dL (9-16); Calcium 9.4 mg/dL (8.4-10.2); Carbon Dioxide 24 mmol/L (22-29); Chloride 107 mmol/L (96-108); Creatinine Clr Calc Pharmacy 50.5; Estimated Glomerular Filt Rate 57; Glucose Random 123 mg/dL (60-115); Sodium 141 mmol/L (135-145); Total Protein 6.9 g/dL (6.5-8.0)
[2024-06-27 04:09] LABS: Appearance Urine Clear; Color Urine Yellow; Glucose Urine UA Negative (Negative); Leukocyte Esterase Urine Negative (Negative); Nitrite Urine Negative (Negative); PH 6.5 (5.0-9.0); UMIC TRIGGER UACC YES; Urine Blood Small (1+) (Negative); Urine Ketones Negative (Negative); Urine Protein Negative (Neg-Trace)
[2024-06-27 04:14] LABS: Bacteria Urine None Seen (None Seen); Hyaline Casts Urine 0-2 /LPF (0-2); Squamous Epithelial Cell Urine 0-2 /HPF (0-2); WBC Urine 0-5 /HPF (0-5)
[2024-06-27 05:54] VITALS: BP 193/74; PULSE 90; RESP 16; TEMP 36.3; O2SAT 99
== END 2024-06-27 05:54 | disposition home or self-care (01) ==
PROVIDERS: Emergency Provider Internal Medicine; PCP Internal Medicine
DX: N40.1 Benign prostatic hyperplasia with lower urinary tract symptoms (principal); R33.9 Retention of urine, unspecified; R10.30 Lower abdominal pain, unspecified; E11.9 Type 2 diabetes mellitus without complications; Z79.4 Long term (current) use of insulin; Z79.899 Other long term (current) drug therapy
CPT/HCPCS: 36415; 80053; 81001; 85025; 99283; 99284

== ENCOUNTER 2024-07-02 10:03 | Outpatient (REF) | payer MEDICARE, MEDICAID, SELFPAY | END 2024-07-02 10:04 | disposition home or self-care (01) | LOC: HO.US 10:03 | PROVIDERS: PCP Internal Medicine; Visit Provider Urology | DX: Z13.89 Encounter for screening for other disorder (principal) ==

== ENCOUNTER 2024-07-02 11:27 | Emergency (ER) | payer MEDICARE, MEDICAID, SELFPAY ==
[2024-07-02 11:29] VITALS: BP 171/69; PULSE 80; RESP 18; TEMP 36.1; O2SAT 100; BMI 26.2
--- NOTE | 2024-07-02 11:29 | ED.GENADULT ---
HPI - General Adult General Chief complaint: Urogenital-Male Stated complaint: cath removal Time Seen by Provider: 07/02/24 12:57 Source: patient, RN notes reviewed and old records reviewed Mode of arrival: ambulatory History of Present Illness ED Provider: Debby Doan PA-C HPI narrative: 74-year-old male with a past medical history CKD, BPH, HLD, HTN, diabetes, urinary retention s/p Up catheter placement in our ED on 06/27/2024, presenting to the ED requesting Up catheter removal. Reports discomfort when urinating and leakage around Up. States he has to strain in order to get urine out and would like catheter removed. Denies abdominal pain, flank pain dysuria/hematuria, nausea/vomiting, however Related Data Previous Rx's ?Medication ?Instructions ?Recorded blood sugar diagnostic (FreeStyle #100 ea 06/22/20 Lite Strips) sennosides 8.6 mg tablet (senna) 17.2 mg (2 x 8.6 mg) PO BEDTIME 10/16/21 PRN constipation 30 days #60 tabs finasteride 5 mg tablet 5 mg PO .Sat Wed Sat 90 days #90 12/10/23 tabs cholecalciferol (vitamin D3) 50 50 mcg PO DAILY 90 days #90 caps 12/11/23 mcg (2,000 unit) capsule Tradjenta 5 mg tablet (linagliptin) 5 mg PO DAILY 90 days #90 tabs 02/02/24 glipizide 2.5 mg tablet, extended 2.5 mg PO DAILY #90 tabs 02/08/24 release 24 hr tamsulosin 0.4 mg capsule 0.8 mg (2 x 0.4 mg) PO DAILY #180 02/14/24 caps atorvastatin 40 mg tablet 40 mg PO DAILY 90 days #90 tabs 05/15/24 valsartan 80 mg tablet 80 mg PO DAILY 90 days #90 tabs 05/15/24 cefuroxime axetil 250 mg tablet 250 mg PO BID 7 days #14 tabs 07/02/24 Allergies Allergy/AdvReac Type Severity Reaction Status Date / Time metformin [METFORMIN] AdvReac Mild STOMACH Verified 07/02/24 11:35 UPSET,DIARRHEA Review of Systems Review of Systems: Yes all other systems are reviewed and are negative Constitutional: Constitutional: Reports as per HPI [facility] Past Medical History Attestation statement: The following information was validated with the patient. Source: old records reviewed Medical History Insomnia Chronic kidney disease, stage III (moderate) Vitamin D deficiency BPH associated with nocturia Chronic constipation Benign prostatic hyperplasia with lower urinary tract symptoms Overweight (BMI 25.0-29.9) Pure hypercholesterolemia Benign essential hypertension Type 2 diabetes mellitus with diabetic chronic kidney disease Surgical History History of colonoscopy History of hemorrhoidectomy History of inguinal hernia repair Family History Family History Father No problems noted. Mother Medical history unknown Social History Social History Household Members: Spouse Housing: Apartment Alcohol intake: never Patient Tobacco Use Status: Never used Tobacco e-Cigarette/Vaping Use: Never Used Second Hand Smoke Exposure: Yes Advance Directives: No Advance Directives Information Provided: Yes service: No Current occupational status: retired Cognitive needs: No Hearing needs: No Vision needs: Yes Physical Exam ED Vital Signs: Vital Signs - 24 hr 07/02/24 11:29 07/02/24 13:55 Temperature 97.0 F Pulse Rate 80 74 Respiratory Rate 18 16 Blood Pressure 171/69 H 184/82 H Pulse Oximetry 100 99 Oxygen Delivery Method Room Air Room Air BMI result Body Mass Index 26.2 Const General: cooperative, healthy appearing and no acute distress Orientation/consciousness: patient oriented x3 Limitations: no limitations HENVA Head: Yes normal to inspection and Yes atraumatic Ears: hearing grossly normal bilaterally General nose exam: Normal external nose present Face and sinus: Yes normal facial exam Eyes General: appearance normal, both eyes and all related structures EOM: EOMs intact bilaterally Neck Neck: Yes normal visual inspection and Yes no meningeal signs Resp Effort & Inspection: normal respiratory effort and no respiratory distress Cardio Rate: regular rate GI Inspection: Yes normal to inspection Palpation (GI): Soft to palpation, nontender, no guarding and not rigid Skin Rashes: no rashes Wounds: no wounds Neuro General: patient oriented x3, tone normal and no meningeal signs Cranial nerves: Yes CN's II-XII intact bilaterally Gait exam (Neuro): Normal gait present Extrem General: Yes normal to inspection Course Course Course Narrative: RME, this is a rapid medical exam performed by Raudel Dickerson please refer to primary provider for complete H&P- 74 year old male with history of urinary retention followed by Dr Ramsey presents for evaluation of I need my up catheter removed. He had a catheter placed 5 days ago due to urinary retention and wants it removed. He reports discomfort from the catheter but otherwise, no abdominal pain, fevers, chills. -patient bladder scanned prior to Up catheter removal, 10 mL appreciated, Up catheter removed, patient urinated 30 mls >> PVR 17ml Patient is safe for discharge without reinsertion of Up catheter with close Urology/PCP follow-up -141--UA is infected will initiate on p.o. antibiotics Results discussed with patient including worrisome signs and symptoms and strict return precautions, and when to return to the emergency department. They verbalized understanding and feel safe for discharge at this time. Medical Decision Making Medical Decision Making [facility] Narrative: 74-year-old male with a past medical history CKD, BPH, HLD, HTN, diabetes, urinary retention s/p Up catheter placement in our ED on 06/27/2024, presenting to the ED requesting Up catheter removal. On exam vital signs stable, NAD, nontoxic appearing, abdomen is soft and nontender, no CVAT. Up catheter appears appropriately placed, drainage and urine bag. Discussed with patient we do not recommend removal at this time/ED removal and will need trial to void, he verbalized understanding and would still like catheter removed. Discussed if he is unable to urinate in the ED will need to replace Up which he is agreeable Plan: Bladder scan, remove Up catheter, trial to void, UA Please refer to course for remaining clinical decision making, interpretation of labs/imaging results, and discussions with consultants and/or family members. Differential Diagnosis Differential Diagnoses: The differential diagnosis associated with the presentation includes As above Admission/Observation Consideration of admission/observation: Escalation of care including admission/observation considered Lab Data [facility] Lab Attestation statement: I reviewed the patient's lab results. Labs: Lab Results 07/02/24 Range/Units 13:58 Urine Color Yellow Urine Appearance Clear Urine pH 6.5 (5.0-9.0) Ur Specific [place] 1.025 (1.005-1.025) Urine Protein 30 (1+) H (Neg-Trace) mg/dL Urine Glucose (UA) Negative (Negative) mg/dL Urine Ketones Trace (Negative) mg/dL Urine Blood Large (3+) H (Negative) Urine Nitrite Negative (Negative) Ur Leukocyte Esterase Moderate (2+) H (Negative) Urine RBC >20 H (0-2) /HPF Urine WBC 6-10 H (0-5) /HPF Ur Squamous Epith Cells 0-2 (0-2) /HPF Urine Bacteria None Seen (None Seen) Hyaline Casts 0-2 (0-2) /LPF Radiology Impression Discussion of test interpretation with radiology: I have reviewed the radiologist's reading. External Record Review External record reviewed: Inpatient record, Office record, Outpatient record, Prior outpatient labs, Prior outpatient radiology, Primary care record and Outside ED record Tests considered The following testing was considered but not selected: As above Prescription Management I considered prescription management with: Other Chronic Conditions Patient?s care impacted by: Other Social Determinants Patient?s care significantly limited by Social Determinants of Health including: Other Social Determinant of Health Discharge Plan Discharge Clinical Impression: Encounter for Up catheter removal, Acute UTI Patient Disposition: Home, Self-Care Instructions: Urinary Tract Infection in Men (DC), Up Catheter Removal (DC) Additional Instructions: Your Up catheter was removed You have a urinary tract infection. Ceftin as an antibiotic please take as prescribed If you are unable to urinate, develop lower abdominal pain, back pain, chills, fever, vomiting return to the ED You need to follow-up with urology as well as your primary care doctor Prescriptions: New cefuroxime axetil 250 mg tablet 250 mg PO BID 7 Days Qty: 14 0RF No Action finasteride 5 mg tablet 5 mg PO .Sat 90 Days Qty: 90 1RF cholecalciferol (vitamin D3) 50 mcg (2,000 unit) capsule 50 mcg PO DAILY 90 Days Qty: 90 3RF Tradjenta 5 mg tablet 5 mg PO DAILY 90 Days Qty: 90 1RF glipizide 2.5 mg tablet extended release 24hr 2.5 mg PO DAILY Qty: 90 1RF tamsulosin 0.4 mg capsule 0.8 mg PO DAILY Qty: 180 1RF valsartan 80 mg tablet 80 mg PO DAILY 90 Days Qty: 90 3RF atorvastatin 40 mg tablet 40 mg PO DAILY 90 Days Qty: 90 1RF (DME) FreeStyle Lite Strips Strip See Rx Instructions .ROUTE .MEDSUPPLY Qty: 100 12RF Rx Instructions: As directed - test 1 to 2 times a day sennosides [senna] 8.6 mg tablet 17.2 mg PO BEDTIME PRN (Reason: constipation) 30 Days Qty: 60 5RF Referrals: [facility] [place] [facility] [Provider Group] - 1 week Jimmy Hurtado MD [Primary Care Provider] - 3 days Discharge Date/Time: 07/02/24 14:29 Print Language: Frisian
--- NOTE | 2024-07-02 13:33 | PC.NURSE ---
patient bladder scanned, 10ml in bladder. up removed. patient given urinal
[2024-07-02 13:55] VITALS: BP 184/82; PULSE 74; RESP 16; O2SAT 99
--- NOTE | 2024-07-02 13:59 | PC.NURSE ---
patient voided 30ml , UA sent
[2024-07-02 14:05] LABS: Appearance Urine Clear; Color Urine Yellow; Glucose Urine UA Negative (Negative); Leukocyte Esterase Urine Moderate (2+) (Negative); Nitrite Urine Negative (Negative); PH 6.5 (5.0-9.0); Specific Gravity - Urine 1.025 (1.005-1.025); UMIC TRIGGER UACC YES; Urine Blood Large (3+) (Negative); Urine Ketones Trace mg/dL (Negative); Urine Protein 30 (1+) mg/dL (Neg-Trace)
[2024-07-02 14:08] LABS: Bacteria Urine None Seen (None Seen); Hyaline Casts Urine 0-2 /LPF (0-2); RBC Urine >20 /HPF (0-2); Squamous Epithelial Cell Urine 0-2 /HPF (0-2); UACC Culture Trigger YES
--- NOTE | 2024-07-02 14:12 | PC.NURSE ---
patient pvr 17 ml
== END 2024-07-02 14:29 | disposition home or self-care (01) ==
PROVIDERS: Physician Assistant; Emergency Provider Emergency Medicine; PCP Internal Medicine
DX: N39.0 Urinary tract infection, site not specified (principal); Z46.6 Encounter for fitting and adjustment of urinary device
CPT/HCPCS: 81001; 87086; 99283

== ENCOUNTER 2024-07-07 16:49 | Outpatient (AMB) | payer MEDICARE, MEDICAID, SELFPAY ==
--- NOTE | 2024-07-07 16:49 | A.OFFPC_ITS ---
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 Accompanied by: Self / Same As Patient Allergies metformin [METFORMIN] Adverse Reaction (Mild, Verified 07/14/24 01:17) STOMACH UPSET,DIARRHEA Medication List - Last Reconciled 07/14/24 by Jimmy Hurtado MD atorvastatin 40 mg PO DAILY 90 days blood sugar diagnostic (FreeStyle Lite Strips) As directed - test 1 to 2 times a day cefuroxime axetil 250 mg PO BID 7 days cholecalciferol (vitamin D3) 50 mcg PO DAILY 90 days finasteride 5 mg PO .Sat 90 days glipizide ER 2.5 mg PO DAILY sennosides (senna) 17.2 mg (2 x 8.6 mg) PO BEDTIME PRN 30 days tamsulosin 0.8 mg (2 x 0.4 mg) PO DAILY Tradjenta (linagliptin) 5 mg PO DAILY 90 days NS valsartan 80 mg PO DAILY 90 days Tobacco use date assessed: 07/07/24 Fall risk assessment: No Falls in past year Last assessed Fall Risk: 07/07/24 Dental Screening Dental Screen Date: 07/07/24 Did you have a dental visit in the last 12 months?: No Did you have a dental problem in the last 6 months where you did not have access to dental care?: No Was dental information given to patient?: No HPI [facility] 07/02 Catheter removal HPI Details Patient comes in today for his follow-up visit He presented to the ER about 5 days ago to have his Bourgeois catheter removed - he supposedly reports experiencing discomfort on urination and leakage around the Bourgeois catheter at the time His urinalysis then revealed the presence of significant pyuria and he was started empirically on oral Cefuroxime, which he is still currently on His Bourgeois catheter was initially placed on 06/27/2024 when he presented to the ER with acute urinary retention and inability to urinate for several hours Patient states that he currently feels okay and that most of his previous urinary issues have resolved at present He denies any headaches or dizziness Denies any fever Denies any chest pains, no increased shortness of breath No nausea/vomiting, no abdominal pain No change in bowel habits noted [facility] Medical History Insomnia Chronic kidney disease, stage III (moderate) Vitamin D deficiency BPH associated with nocturia Chronic constipation Benign prostatic hyperplasia with lower urinary tract symptoms Overweight (BMI 25.0-29.9) Pure hypercholesterolemia Benign essential hypertension Type 2 diabetes mellitus with diabetic chronic kidney disease Surgical History History of colonoscopy History of hemorrhoidectomy History of inguinal hernia repair Family History Father No problems noted. Mother Medical history unknown Social History Household Members: Spouse Housing: Apartment Alcohol intake: never Patient Tobacco Use Status: Never used Tobacco e-Cigarette/Vaping Use: Never Used Second Hand Smoke Exposure: Yes service: No Current occupational status: retired Cognitive needs: No Hearing needs: No Vision needs: Yes Questionnaire PHQ-9 Over the last 2 weeks, how often have you been bothered by any of the following problems? 1. Little interest or pleasure in doing things: not at all 2. Feeling down, depressed, or hopeless: not at all 3. Trouble falling or staying asleep, or sleeping too much: not at all 4. Feeling tired or having little energy: not at all 5. Poor appetite or overeating: not at all 6. Feeling bad about yourself - or that you are a failure or have let yourself or your family down: not at all 7. Trouble concentrating on things, such as reading the newspaper or watching television: not at all 8. Moving or speaking so slowly that other people could have noticed. Or the opposite - being so fidgety or restless that you have been moving around a lot more than usual: not at all 9. Thoughts that you would be better off or of hurting yourself in some way: not at all Total score: 0 Depression Screening Interpretation: Negative Depression Screening Done: Yes 92872 - PHQ-9 Billing: Yes Source: Developed by Drs. Vasile Wren, Jeremiah Loya and colleagues, with an educational danis from [employer] Thrive Questionnaire Date Thrive assessed: 07/07/24 I am a: Patient What is your living situation today?: I have a steady place to live Within the past 12 months, did the food you bought not last and you didn't have the money to get more?: Never true Within the past 12 months, did you worry whether your food would run out before you got money to buy more?: Never true Do you have trouble paying for medicines?: No Do you have trouble getting transportation to medical appointments?: No Do you have trouble paying your heating and electricity bill?: No Do you have trouble taking care of your child, family member or friend?: No Do you have trouble with day-to-day activities such as bathing, preparing meals, shopping, managing finances, etc.?: No Are you currently unemployed and looking for a job?: Yes Are you interested in more education?: No Please select the resources that you would like help with: None Currently or been in a relationship where the following occur: No concerns reported THRIVE Score: 0 AUDIT C Alcohol Use Questionnaire (AUDIT-C) 1. How often do you have a drink containing alcohol?: Never 3. How often do you have six or more drinks on one occasion?: Never Total Score: 0 Score Reviewed/Action Taken: Yes DILLON-7 AMB Questionnaire DILLON-7 Date DILLON - 7 assessed: 07/07/24 Feeling nervous, anxious, or on edge: 1 = Several days Not being able to stop or control worryin = Not at all Worrying too much about different things: 0 = Not at all Trouble relaxin = Not at all Being so restless that it is hard to sit still: 0 = Not at all Becoming easily annoyed or irritable: 0 = Not at all Feeling afraid as if something awful might happen: 0 = Not at all Total DILLON-7 score (0-4 normal; 5-9 mild; 10-14 moderate; 15-21 severe): 1 Source: Developed by Bette Brown Kurt Kroenke and colleagues, with an educational danis from [employer] Review of Systems Const Denies chills, Denies fatigue, Denies fever(s) and Denies headache(s) ENT Denies dysphagia, Denies dizziness, Denies otalgia, Denies headache(s), Denies neck pain, Denies odynophagia and Denies sore throat Card Denies chest pain, Denies palpitations and Denies dyspnea Resp Denies chest congestion, Denies cough and Denies dyspnea GI Denies abdominal pain, Denies constipation, Denies dysphagia, Denies heartburn, Denies diarrhea, Denies nausea, Denies odynophagia and Denies vomiting Denies hematuria, Reports difficulty urinating (at times - Rx helps), Denies dysuria, Denies nocturia and Denies urinary frequency Musc Denies back pain, Denies arthralgias and Denies neck pain Skin/Breast Denies rash Neuro Denies dizziness and Denies headache(s) Endo Denies fatigue and Denies palpitations Physical exam (Primary Care) Vital Signs: Last Vital Signs Pulse 78 07/07/24 16:50 BP 154/76 H 07/07/24 16:50 Pulse Ox 98 07/07/24 16:50 Oxygen Delivery Method Room Air 07/07/24 16:50 BMI result Body Mass Index 26.1 Tobacco/Smoking Status: Tobacco use Status Tobacco use date assessed 07/07/24 07/07/24 16:56 Patient Tobacco Use Status Never used Tobacco 07/07/24 16:56 e-Cigarette/Vaping Use Never Used 07/07/24 16:56 PHQ-9: PHQ-9 Score PHQ-9: Total score 0 07/07/24 17:21 Depression Screening Interpretation: Negative Thrive Assessment: Date of Thrive Assessment Date Thrive assessed 07/07/24 07/07/24 16:56 Currently or been in a relationship where the following occur: No concerns reported Const General: no acute distress and alert HENMT Throat: Yes posterior oropharynx normal and Yes tonsils normal (no TP congestion noted) Neck Neck: Yes no lymphadenopathy and Yes supple Thyroid: Thyroid normal Resp Auscultation: clear to auscultation bilaterally, no rales and no wheezes Cardio Rate: regular rate Rhythm: abnormal rhythm with ectopic beats Heart sounds: no murmurs GI Palpation (GI): Soft to palpation and nontender Auscultation: normal bowel sounds General: Yes no CVA tenderness Back/Spine/Pelvis Back: no CVA tenderness Thoracic/Lumbar Spine: No lumbar spinal tenderness Skin Rashes: no rashes Extrem General: Yes no clubbing, cyanosis or edema Coding Level of Care Code Est Pt Level 3 (26417) Diagnoses Benign prostatic hyperplasia with urinary retention N40.1; R33.8 Lower urinary tract symptom detail: urinary retention Overweight (BMI 25.0-29.9) E66.3 Additional Codes PHQ-9 - 07968 - PHQ-9 Billing: Yes ([id number]) Assessment & Plan Assessment & Plan (1) Benign prostatic hyperplasia with lower urinary tract symptoms: Code(s): N40.1 - Benign prostatic hyperplasia with lower urinary tract symptoms Category: Medical Qualifiers: Lower urinary tract symptom detail: urinary retention Qualified Code(s): N40.1 - Benign prostatic hyperplasia with lower urinary tract symptoms; R33.8 - Other retention of urine Plan: Patient recently suffered acute urinary retention, requiring catheter insertion x 5 days - this has since been discontinued and patient reports that his symptoms are mostly back to his baseline Continue Tamsulosin 0.8 mg Q HS and Finasteride 5 mg TIW (dose was lowered by urology) He is scheduled for a bladder and prostate US next month Follow up with urology as scheduled? (2) Overweight (BMI 25.0-29.9): Code(s): E66.3 - Overweight Category: Medical Plan: Reinforced diet/exercise as tolerated/lose weight Plan Follow up as scheduled in early October 2024 Patient Instructions: \
[2024-07-07 16:50] VITALS: BP 154/76; PULSE 78; O2SAT 98; BMI 26.1
== END 2024-07-07 17:22 | disposition home or self-care (01) ==
LOC: HO.HMCH 16:49
PROVIDERS: PCP Internal Medicine; Visit Provider Internal Medicine
DX: N40.1 Benign prostatic hyperplasia with lower urinary tract symptoms (principal); R33.8 Other retention of urine; E66.3 Overweight

== ENCOUNTER → 2024-07-07 16:49 | Outpatient (BNVA) | payer MEDICARE, MEDICAID, SELFPAY | PROVIDERS: PCP Internal Medicine; Visit Provider Internal Medicine | DX: N40.1 Benign prostatic hyperplasia with lower urinary tract symptoms (principal); R33.8 Other retention of urine; E66.3 Overweight; Z68.26 Body mass index [BMI] 26.0-26.9, adult; Z71.3 Dietary counseling and surveillance | CPT/HCPCS: 96127; 99212 ==

== ENCOUNTER 2024-07-31 15:06 | Outpatient (REF) | payer MEDICARE, MEDICAID, SELFPAY | END 2024-07-31 15:07 | disposition home or self-care (01) | LOC: HO.US 15:06 | PROVIDERS: PCP Internal Medicine; Visit Provider Urology | DX: Z13.89 Encounter for screening for other disorder (principal) ==

== ENCOUNTER 2024-09-03 13:38 | Outpatient (REF) | payer MEDICARE, MEDICAID, SELFPAY ==
--- NOTE | ~2024-09-03 | US_ITS ---
CLINICAL HISTORY: R39.12 - Poor urinary stream US prostate and bladder Comparison: None provided Findings: Prostate 5.6 x 4.9 x 5.3 cm. Prostate heterogeneous without focal abnormality. Prostate volume 76 mL. The urinary bladder is unremarkable. Prevoid volume 222 mL. Post void volume 109 mL. Bilateral ureteral jets visualized. Impression: Heterogeneous enlarged prostate gland Postvoid residual 109 mL This document has been electronically signed by: Christo Chairez MD on 09/03/2024 21:36:38
== END 2024-09-03 13:39 | disposition home or self-care (01) ==
LOC: HO.US 13:38
PROVIDERS: PCP Internal Medicine; Visit Provider Urology
DX: R39.12 Poor urinary stream (principal); N40.1 Benign prostatic hyperplasia with lower urinary tract symptoms; R35.1 Nocturia
CPT/HCPCS: 76857

== ENCOUNTER → 2024-09-03 13:40 | Outpatient (BNV) | payer MEDICARE, MEDICAID, SELFPAY | PROVIDERS: PCP Internal Medicine; Visit Provider Radiology Diagnostic Radiology | DX: N40.0 Benign prostatic hyperplasia without lower urinary tract symptoms (principal); R39.14 Feeling of incomplete bladder emptying | CPT/HCPCS: 76857 ==

== ENCOUNTER 2024-10-02 08:11 | Outpatient (AMB) | payer MEDICARE, MEDICAID, SELFPAY ==
--- NOTE | 2024-10-02 08:13 | A.OFFVIS_ITS ---
Intake Visit Reasons: ultrasound and lab follow up Intake Note: Patient is present for: ULTRASOUND/ LABS FOLLOW UP Urology Med: Tamsulosin, Finasteride Blood Thinner: None LABS DONE 06/25/24: PSA 2.53 ULTRASOUND DONE: 09/03/24 Independent Contractor Required: Yes Independent Contractor Language: Health Teacher Services: Independent Contractor Present Accompanied by: Self / Same As Patient Allergies metformin (METFORMIN) Adverse Reaction (Mild, Verified 10/02/24 08:14) STOMACH UPSET,DIARRHEA HPI Comments Details: Nasir is a pleasant male. He is seen for the following urologic conditions - BPH - urinary retention Lithuanian translation provided by qualified medical secretary receptionist PVR remains low Combination therapy PSA stable follow-up 12 months Diabetic Repeat PSA with testosterone and bladder ultrasound in six-month Ultrasound 75 g prostate 100 cc residual Lower urinary tract symptoms Previously seen and had been treated with tamsulosin for trilobar hypertrophy Offered prostate procedure in the past Current medication includes combination finasteride and tamsulosin 0.8 mg PSA 01/08 5.6, 07/09 2.9, 01/09 1.9, 01/10 1.9, 01/11 2.5, 07/12 2.5 Review in 6 months [facility] Medical History Insomnia Chronic kidney disease, stage III (moderate) Vitamin D deficiency BPH associated with nocturia Chronic constipation Benign prostatic hyperplasia with lower urinary tract symptoms Overweight (BMI 25.0-29.9) Pure hypercholesterolemia Benign essential hypertension Type 2 diabetes mellitus with diabetic chronic kidney disease Surgical History History of colonoscopy History of hemorrhoidectomy History of inguinal hernia repair Family History Father No problems noted. Mother Medical history unknown Social History Household Members: Spouse Housing: Apartment Alcohol intake: never Patient Tobacco Use Status: Never used Tobacco e-Cigarette/Vaping Use: Never Used Second Hand Smoke Exposure: Yes service: No Current occupational status: retired Cognitive needs: No Hearing needs: No Vision needs: Yes Review of Systems Const Denies chills and Denies fever(s) Card Reports no additional complaints and Denies syncope Resp Denies cough GI Denies abdominal pain and Denies heartburn Reports as per HPI and Denies change in libido Neuro Denies syncope Psych Denies change in libido Endo Denies change in libido Physical Exam Const General: cooperative, healthy appearing, comfortable and no acute distress Orientation/consciousness: patient oriented x3 HEENT Face and sinus: Yes normal facial exam Mouth: moist mucous membranes Neck Neck: Yes normal visual inspection, Yes full ROM and Yes trachea midline Chest Chest palpation & inspection: normal inspection of the chest Resp Effort & Inspection: normal respiratory effort, able to speak in complete sentences and no respiratory distress GI Inspection: Yes normal to inspection Back/Spine/Pelvis Cervical Spine: normal cervical lordosis Thoracic/Lumbar Spine: thoracic and lumbar spine normal to inspection Skin General skin exam: no rashes or lesions noted Neuro General: patient oriented x3, gait normal, tone normal and moves all extremities Extrem General: Yes normal to inspection and Yes capillary refill normal Assessment & Plan Assessment & Plan (1) Benign prostatic hyperplasia with lower urinary tract symptoms: Code(s): N40.1 - Benign prostatic hyperplasia with lower urinary tract symptoms Category: Medical Qualifiers: Lower urinary tract symptom detail: urinary retention Qualified Code(s): N40.1 - Benign prostatic hyperplasia with lower urinary tract symptoms; R33.8 - Other retention of urine (2) Elevated PSA: Code(s): R97.20 - Elevated prostate specific antigen [PSA] Category: Medical Plan Twelve month follow-up Orders: Orders Prostate Specific Antigen 12 Months N40.1 - Benign prostatic hyperplasia with lower urinary tract symptoms, R35.1 - Nocturia Medications: Changed From tamsulosin 0.8 mg (2 x 0.4 mg) PO DAILY 180 caps 1RF N40.1 - Benign prostatic hyperplasia with lower urinary tract symptoms, R33.8 - Other retention of urine To tamsulosin 0.8 mg (2 x 0.4 mg) PO DAILY 180 caps 3RF 90 days N40.1 - Benign prostatic hyperplasia with lower urinary tract symptoms, R33.8 - Other retention of urine Refilled finasteride 5 mg PO .Mon Wed Sat 90 tabs 2RF 90 days N40.1 - Benign prostatic hyperplasia with lower urinary tract symptoms, R33.8 - Other retention of urine Patient Instructions: This note is constructed using voice recognition software. While every effort has been made to ensure accuracy machine bander and cellophaner errors may have been included. Imaging studies, laboratory and physical exam results were discussed and reviewed in detail. No major barriers to patient understanding were identified. An opportunity to ask questions regarding the treatment plan was provided. All questions were answered. The patient expressed understanding and agreement with the above treatment plan. The patient is aware they should contact our office by phone for worsening of their current condition or the appearance of new urologic symptoms. Compliance is encouraged with any medications and followup testing that is ordered. It is a privilege to participate in the urologic care of your patient. If you have any questions or concerns regarding treatment for the above conditions, or other urologic issues, please do not hesitate to contact me. The office telephone contact is [phone]. Sincerely, Dr Henrik Ramsey MD, [facility] - Urology Compassionate Specialist Care for the Genitourinary System Coding Level of Care Code Est Pt Level 3 (77547) Complex EM visit Add On G2211 Diagnoses Benign prostatic hyperplasia with urinary retention N40.1; R33.8 Lower urinary tract symptom detail: urinary retention Elevated PSA R97.20
== END 2024-10-02 09:04 | disposition home or self-care (01) ==
PROVIDERS: PCP Internal Medicine; Visit Provider Urology
DX: N40.1 Benign prostatic hyperplasia with lower urinary tract symptoms (principal); R33.8 Other retention of urine; R97.20 Elevated prostate specific antigen [PSA]
CPT/HCPCS: 99213; G2211

== ENCOUNTER → 2024-10-02 08:11 | Outpatient (BNVA) | payer MEDICARE, MEDICAID, SELFPAY | PROVIDERS: PCP Internal Medicine; Visit Provider Urology | DX: N40.1 Benign prostatic hyperplasia with lower urinary tract symptoms (principal); R33.8 Other retention of urine; R97.20 Elevated prostate specific antigen [PSA] | CPT/HCPCS: 99212 ==

== ENCOUNTER 2024-10-23 09:05 | Outpatient (AMB) | payer MEDICARE, MEDICAID, SELFPAY ==
[2024-10-23 09:07] VITALS: BP 174/96; PULSE 81; O2SAT 99; BMI 26.0
--- NOTE | 2024-10-23 09:07 | MHC.PC.OV ---
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 Required: No Accompanied by: Self / Same As Patient Allergies metformin (METFORMIN) Adverse Reaction (Mild, Verified 10/23/24 09:33) STOMACH UPSET,DIARRHEA Medication List - Last Reconciled 10/23/24 by Jimmy Hurtado MD atorvastatin 40 mg PO DAILY 90 days blood sugar diagnostic (FreeStyle Lite Strips) As directed - test 1 to 2 times a day cholecalciferol (vitamin D3) 50 mcg PO DAILY 90 days finasteride 5 mg PO .Sat 90 days glipizide ER 2.5 mg PO DAILY sennosides (senna) 17.2 mg (2 x 8.6 mg) PO BEDTIME PRN 30 days tamsulosin 0.8 mg (2 x 0.4 mg) PO DAILY 90 days Tradjenta (linagliptin) 5 mg PO DAILY 90 days NS valsartan 80 mg PO DAILY 90 days Tobacco use date assessed: 10/23/24 Fall risk assessment: No Falls in past year Last assessed Fall Risk: 10/23/24 Dental Screening Dental Screen Date: 10/23/24 Did you have a dental visit in the last 12 months?: No Did you have a dental problem in the last 6 months where you did not have access to dental care?: No Was dental information given to patient?: Patient has dentist HPI [facility] HPI Details Patient comes in today for his follow up visit States that he feels okay He denies any headaches or dizziness Denies any chest pains, no SOB No nausea/vomiting, no abdominal pain No change in bowel habits noted Patient states that he forgot to take his blood pressure medication this morning so his blood pressure is running higher than usual He was not able to (forgot) get his follow up labs done prior to his appointment today [facility] Medical History Insomnia Chronic kidney disease, stage III (moderate) Vitamin D deficiency BPH associated with nocturia Chronic constipation Benign prostatic hyperplasia with lower urinary tract symptoms Overweight (BMI 25.0-29.9) Pure hypercholesterolemia Benign essential hypertension Type 2 diabetes mellitus with diabetic chronic kidney disease Surgical History History of colonoscopy History of hemorrhoidectomy History of inguinal hernia repair Family History Father No problems noted. Mother Medical history unknown Social History Household Members: Spouse Housing: Apartment Alcohol intake: never Patient Tobacco Use Status: Never used Tobacco e-Cigarette/Vaping Use: Never Used Second Hand Smoke Exposure: Yes service: No Current occupational status: retired Cognitive needs: No Hearing needs: No Vision needs: Yes Questionnaire PHQ-9 Over the last 2 weeks, how often have you been bothered by any of the following problems? 1. Little interest or pleasure in doing things: not at all 2. Feeling down, depressed, or hopeless: not at all 3. Trouble falling or staying asleep, or sleeping too much: not at all 4. Feeling tired or having little energy: not at all 5. Poor appetite or overeating: not at all 6. Feeling bad about yourself - or that you are a failure or have let yourself or your family down: not at all 7. Trouble concentrating on things, such as reading the newspaper or watching television: not at all 8. Moving or speaking so slowly that other people could have noticed. Or the opposite - being so fidgety or restless that you have been moving around a lot more than usual: not at all 9. Thoughts that you would be better off or of hurting yourself in some way: not at all Total score: 0 Depression Screening Interpretation: Negative Depression Screening Done: Yes 16120 - PHQ-9 Billing: Yes Source: Developed by Drs. Vasile Wren, Bette Chen, Jeremiah Leija and colleagues, with an educational danis from [employer]. Thrive Questionnaire Date Thrive assessed: 10/23/24 I am a: Patient What is your living situation today?: I have a steady place to live Within the past 12 months, did the food you bought not last and you didn't have the money to get more?: Never true Within the past 12 months, did you worry whether your food would run out before you got money to buy more?: Never true Do you have trouble paying for medicines?: No Do you have trouble getting transportation to medical appointments?: No Do you have trouble paying your heating and electricity bill?: No Do you have trouble taking care of your child, family member or friend?: No Do you have trouble with day-to-day activities such as bathing, preparing meals, shopping, managing finances, etc.?: No Are you currently unemployed and looking for a job?: Yes Are you interested in more education?: No Please select the resources that you would like help with: None Currently or been in a relationship where the following occur: No concerns reported THRIVE Score: 0 AUDIT C Alcohol Use Questionnaire (AUDIT-C) 1. How often do you have a drink containing alcohol?: Never 3. How often do you have six or more drinks on one occasion?: Never Total Score: 0 Score Reviewed/Action Taken: Yes DILLON-7 AMB Questionnaire DILLON-7 Date DILLON - 7 assessed: 10/23/24 Feeling nervous, anxious, or on edge: 1 = Several days Not being able to stop or control worryin = Not at all Worrying too much about different things: 0 = Not at all Trouble relaxin = Not at all Being so restless that it is hard to sit still: 0 = Not at all Becoming easily annoyed or irritable: 0 = Not at all Feeling afraid as if something awful might happen: 0 = Not at all Total DILLON-7 score (0-4 normal; 5-9 mild; 10-14 moderate; 15-21 severe): 1 Source: Developed by Drs. Vasile Wren, Bette Chen, Jeremiah Leija and colleagues, with an educational danis from [employer]. Review of Systems Const Denies chills, Denies fatigue, Denies fever(s) and Denies headache(s) ENT Denies dysphagia, Denies dizziness, Denies otalgia, Denies headache(s), Denies neck pain, Denies odynophagia and Denies sore throat Card Denies chest pain, Denies palpitations and Denies dyspnea Resp Denies chest congestion, Denies cough and Denies dyspnea GI Denies abdominal pain, Denies constipation, Denies dysphagia, Denies heartburn, Denies diarrhea, Denies nausea, Denies odynophagia and Denies vomiting Denies hematuria, Reports difficulty urinating (at times - Rx helps), Denies dysuria, Denies nocturia and Denies urinary frequency Musc Denies back pain, Denies arthralgias and Denies neck pain Skin/Breast Denies rash Neuro Denies dizziness and Denies headache(s) Endo Denies fatigue and Denies palpitations Physical exam (Primary Care) Vital Signs: Last Vital Signs Pulse 81 10/23/24 09:07 BP 180/100 H 10/23/24 09:36 Pulse Ox 99 10/23/24 09:07 Oxygen Delivery Method Room Air 10/23/24 09:07 BMI result Body Mass Index 26.0 Tobacco/Smoking Status: Tobacco use Status Tobacco use date assessed 10/23/24 10/23/24 09:16 Patient Tobacco Use Status Never used Tobacco 10/23/24 09:16 e-Cigarette/Vaping Use Never Used 10/23/24 09:16 PHQ-9: PHQ-9 Score PHQ-9: Total score 0 10/23/24 09:37 Depression Screening Interpretation: Negative Thrive Assessment: Date of Thrive Assessment Date Thrive assessed 10/23/24 10/23/24 09:16 Currently or been in a relationship where the following occur: No concerns reported Const General: no acute distress and alert HENMT Ears: TM's normal bilaterally and EAC's normal Throat: Yes posterior oropharynx normal and Yes tonsils normal (no TP congestion noted) Neck Neck: Yes no lymphadenopathy and Yes supple Thyroid: Thyroid normal Resp Auscultation: clear to auscultation bilaterally, no rales and no wheezes Cardio Rate: regular rate Rhythm: abnormal rhythm with ectopic beats Heart sounds: no murmurs GI Palpation (GI): Soft to palpation and nontender Auscultation: normal bowel sounds General: Yes no CVA tenderness Back/Spine/Pelvis Back: no CVA tenderness Thoracic/Lumbar Spine: No lumbar spinal tenderness Skin Rashes: no rashes Extrem General: Yes no clubbing, cyanosis or edema Coding Level of Care Code Est Pt Level 4 (57134) Diagnoses Pure hypercholesterolemia E78.00 Type 2 diabetes mellitus with stage 2 chronic kidney disease, without long-term current use of insulin E11.22; N18.2 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 insulin use: without shelter use Chronic kidney disease stage: stage 2 (mild) Benign essential hypertension I10 Stage 3a chronic kidney disease N18.31 Chronic kidney disease stage 3 subtype: stage 3a (GFR 45-59) Ectopic beats I49.49 Elevated LFTs R79.89 Vitamin D deficiency E55.9 Anemia, unspecified type D64.9 Anemia type: unspecified type Constipation, unspecified constipation type K59.00 Constipation type: unspecified constipation type Benign prostatic hyperplasia with urinary retention N40.1; R33.8 Lower urinary tract symptom detail: urinary retention Insomnia, unspecified type G47.00 Insomnia type: unspecified Overweight (BMI 25.0-29.9) E66.3 Additional Codes PHQ-9 - 89806 - PHQ-9 Billing: Yes ([id number]) Assessment & Plan Assessment & Plan (1) Pure hypercholesterolemia: Code(s): E78.00 - Pure hypercholesterolemia, unspecified Category: Medical Plan: Patient was not able to get his follow up labs done prior to his appointment today - states that he completely forgot about them His cholesterol numbers were at goal when they were last checked in March 2024 Reinforced low cholesterol diet Continue Atorvastatin 40 mg QD Will recheck his labs and fasting lipids in 4 months for follow up - will just have patient use his current orders (updated) for his next lab draw (2) Type 2 diabetes mellitus with diabetic chronic kidney disease: Code(s): E11.22 - Type 2 diabetes mellitus with diabetic chronic kidney disease Category: Medical Qualifiers: 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 insulin use: without computer terminal operator use Chronic kidney disease stage: stage 2 (mild) Qualified Code(s): E11.22 - Type 2 diabetes mellitus with diabetic chronic kidney disease; N18.2 - Chronic kidney disease, stage 2 (mild) Plan: His HgbA1c was at 6.6% on his labs done a few months ago and was previously at 6.7% earlier this year - goal is <7.0% so his diabetes has been well-controlled for a while now Reinforced diabetic diet Continue Tradjenta 5 mg QD and Glipizide ER 2.5 mg QD (3) Benign essential hypertension: Code(s): I10 - Essential (primary) hypertension Category: Medical Plan: Reinforced low sodium diet - goal is systolic BP of at least 130 mm or less Continue Valsartan 80 mg QD - his blood pressure is high today as patient states that he was not able to take his BP med this morning before coming in As his blood pressure has been high in the past even when he took his BP med, will go ahead and increase his Valsartan to 80 mg BID Patient is reminded to continue monitoring his blood pressure regularly and will also have one of our nurse navigators follow up his blood pressure with him in a couple of weeks (4) Chronic kidney disease, stage III (moderate): Code(s): N18.30 - Chronic kidney disease, stage 3 unspecified Category: Medical Qualifiers: Chronic kidney disease stage 3 subtype: stage 3a (GFR 45-59) Qualified Code(s): N18.31 - Chronic kidney disease, stage 3a Plan: His renal function appears stable on his labs done over the past year Reinforced strict control of his diabetes and blood pressure to slow down the decline in his renal function Will continue to monitor his renal function and GFR closely (5) Ectopic beats: Code(s): I49.49 - Other premature depolarization Category: Medical Plan: His most recent EKG done back in 03/2023 showed sinus rhythm with occasional PVCs and nonspecific intraventricular conduction block Echocardiogram revealed normal left ventricular systolic function with calculated ejection fraction at 57% and no obvious valvular pathology seen Patient is reassured that no further evaluation or workups are indicated based on his recent findings, especially as he is completely asymptomatic from a cardiac standpoint (6) Elevated LFTs: Code(s): R79.89 - Other specified abnormal findings of blood chemistry Category: Medical Plan: Resolved; his LFTs have remained normal on his recent labs done a few months ago This was most likely related to his weight and patient denies any abdominal pain/symptoms and states that he does NOT drink alcohol Will continue to monitor his LFTs regularly (7) Vitamin D deficiency: Code(s): E55.9 - Vitamin D deficiency, unspecified Category: Medical Plan: Continue Vitamin D3 2000 units QD (8) Anemia: Code(s): D64.9 - Anemia, unspecified Category: Medical Qualifiers: Anemia type: unspecified type Qualified Code(s): D64.9 - Anemia, unspecified Plan: Stable, although his H/H was still slightly under the normal cutoff at 12.4/38.0 on his most recent labs His serum iron levels were normal when they were previously checked Colonoscopy done a few years ago in 03/2019 came out normal Hgb electrophoresis was also checked a few months ago - this came back normal as well Will continue to monitor his CBC regularly (9) Constipation: Code(s): K59.00 - Constipation, unspecified Category: Medical Qualifiers: Constipation type: unspecified constipation type Qualified Code(s): K59.00 - Constipation, unspecified Plan: Improved; continue Senna 8.6 mg 1 to 2 tablets QD PRN Reinforced increased oral fluids and dietary fiber intake (10) Benign prostatic hyperplasia with lower urinary tract symptoms: Code(s): N40.1 - Benign prostatic hyperplasia with lower urinary tract symptoms Category: Medical Qualifiers: Lower urinary tract symptom detail: urinary retention Qualified Code(s): N40.1 - Benign prostatic hyperplasia with lower urinary tract symptoms; R33.8 - Other retention of urine Plan: Continue Tamsulosin 0.8 mg Q HS and Finasteride 5 mg TIW (dose was lowered by urology) Follow up with urology as scheduled? (11) Insomnia: Code(s): G47.00 - Insomnia, unspecified Category: Medical Qualifiers: Insomnia type: unspecified Qualified Code(s): G47.00 - Insomnia, unspecified Plan: Resolved; sleep hygiene reinforced He was prescribed Trazodone 50 mg Q HS PRN previously but patient states that he never really took a lot of this and has not taken this in months now - states that he has been sleeping well without any Rx so far lately (12) Overweight (BMI 25.0-29.9): Code(s): E66.3 - Overweight Category: Medical Plan: Reinforced diet/exercise as tolerated/lose weight Plan Follow up in 4 months Medications: Changed From valsartan 80 mg PO DAILY 90 days 90 tabs 3RF To valsartan 80 mg PO BID 180 tabs 3RF 90 days
[2024-10-23 09:36] VITALS: BP 180/100
== END 2024-10-23 09:45 | disposition home or self-care (01) ==
LOC: HO.HMCH 09:06
PROVIDERS: PCP Internal Medicine; Visit Provider Internal Medicine
DX: I12.9 Hypertensive chronic kidney disease with stage 1 through stage 4 chronic kidney disease, or unspecified chronic kidney disease (principal); E11.22 Type 2 diabetes mellitus with diabetic chronic kidney disease; N18.31 Chronic kidney disease, stage 3a; E78.00 Pure hypercholesterolemia, unspecified; I49.49 Other premature depolarization; R79.89 Other specified abnormal findings of blood chemistry; E55.9 Vitamin D deficiency, unspecified; D64.9 Anemia, unspecified; K59.00 Constipation, unspecified; N40.1 Benign prostatic hyperplasia with lower urinary tract symptoms; R33.8 Other retention of urine; G47.00 Insomnia, unspecified

== ENCOUNTER → 2024-10-23 09:05 | Outpatient (BNVA) | payer MEDICARE, MEDICAID, SELFPAY | PROVIDERS: PCP Internal Medicine; Visit Provider Internal Medicine | DX: E78.00 Pure hypercholesterolemia, unspecified (principal); I12.9 Hypertensive chronic kidney disease with stage 1 through stage 4 chronic kidney disease, or unspecified chronic kidney disease; E11.22 Type 2 diabetes mellitus with diabetic chronic kidney disease; N18.31 Chronic kidney disease, stage 3a; I49.49 Other premature depolarization; R79.89 Other specified abnormal findings of blood chemistry; D64.9 Anemia, unspecified; E55.9 Vitamin D deficiency, unspecified; K59.00 Constipation, unspecified; N40.1 Benign prostatic hyperplasia with lower urinary tract symptoms; R33.8 Other retention of urine; G47.00 Insomnia, unspecified; E66.3 Overweight; Z68.26 Body mass index [BMI] 26.0-26.9, adult; Z71.3 Dietary counseling and surveillance | CPT/HCPCS: 96127; 99212 ==

== ENCOUNTER → 2024-11-06 08:51 | Outpatient (BNVA) | payer MEDICARE, MEDICAID, SELFPAY | PROVIDERS: PCP Internal Medicine | DX: Z13.89 Encounter for screening for other disorder (principal) | CPT/HCPCS: 99211 ==

== ENCOUNTER → 2024-11-20 10:30 | Outpatient (BNVA) | payer MEDICARE, MEDICAID, SELFPAY | PROVIDERS: PCP Internal Medicine | DX: Z13.89 Encounter for screening for other disorder (principal) | CPT/HCPCS: 99211 ==

== ENCOUNTER → 2024-12-11 10:25 | Outpatient (BNVA) | payer MEDICARE, MEDICAID, SELFPAY | PROVIDERS: PCP Internal Medicine | DX: Z01.30 Encounter for examination of blood pressure without abnormal findings (principal) | CPT/HCPCS: 99211 ==